=== PATIENT | male | born 1940 | race Caucasian/White ===

== ENCOUNTER 2018-06-14 03:23 | Outpatient (RCR) | payer SELFPAY | END 2018-07-14 03:23 | LOC: CR 03:23 | PROVIDERS: PCP Internal Medicine; Visit Provider Family Medicine | DX: Z51.89 Encounter for other specified aftercare (principal) ==

== ENCOUNTER 2018-07-16 22:53 | Outpatient (RCR) | payer SELFPAY | END 2018-08-13 23:59 | disposition home or self-care (01) | LOC: CR 22:53 | PROVIDERS: PCP Internal Medicine; Visit Provider Family Medicine | DX: Z51.89 Encounter for other specified aftercare (principal) ==

== ENCOUNTER 2018-08-14 18:35 | Outpatient (RCR) | payer MEDICARE, SELFPAY | END 2018-09-13 23:59 | disposition home or self-care (01) | LOC: CR 18:35 | PROVIDERS: PCP Internal Medicine; Visit Provider Family Medicine | DX: Z51.89 Encounter for other specified aftercare (principal) ==

== ENCOUNTER 2018-08-16 15:05 | Outpatient (RCR) | payer SELFPAY | END 2018-09-13 23:59 | disposition home or self-care (01) | LOC: CR 15:05 | PROVIDERS: PCP Internal Medicine; Visit Provider Family Medicine | DX: Z51.89 Encounter for other specified aftercare (principal) ==

== ENCOUNTER 2018-08-28 09:25 | Outpatient (CLI) | payer MEDICARE, SELFPAY ==
[2018-08-28 11:11] LABS: Anion Gap 7.5 mmol/L (3-11); BUN 24 mg/dL (7-18); CO2 31.5 mmol/L (21.0-32.0); CREATININE 0.76 mg/dL (0.70-1.30); Calcium 8.7 mg/dL (8.5-10.1); Chloride 103 mmol/L (98-107); Cholesterol 184 mg/dL (50-200); Glucose 99 mg/dL (70-100); HDL Cholesterol 42 mg/dL (40-60); LDL CHOLESTEROL 113 mg/dL (<100); Potassium 4.6 mmol/L (3.5-5.1); Sodium 142 mmol/L (136-145); Triglyceride 164 mg/dL (30-150)
== END 2018-08-28 09:45 ==
PROVIDERS: PCP Internal Medicine; Visit Provider Internal Medicine
DX: I10 Essential (primary) hypertension (principal); I25.9 Chronic ischemic heart disease, unspecified
CPT/HCPCS: 36415; 80048; 80061; 83721

== ENCOUNTER 2018-09-14 04:26 | Outpatient (RCR) | payer SELFPAY | END 2018-10-13 23:59 | disposition home or self-care (01) | LOC: CR 04:26 | PROVIDERS: PCP Internal Medicine; Visit Provider Family Medicine | DX: Z51.89 Encounter for other specified aftercare (principal) ==

== ENCOUNTER 2018-10-14 03:50 | Outpatient (RCR) | payer SELFPAY | END 2018-11-13 23:59 | LOC: CR 03:50 | PROVIDERS: PCP Internal Medicine; Visit Provider Family Medicine | DX: Z51.89 Encounter for other specified aftercare (principal) ==

== ENCOUNTER 2018-11-15 18:10 | Outpatient (RCR) | payer SELFPAY | END 2018-12-14 23:59 | disposition home or self-care (01) | LOC: CR 18:10 | PROVIDERS: PCP Internal Medicine; Visit Provider Family Medicine | DX: Z51.89 Encounter for other specified aftercare (principal) ==

== ENCOUNTER 2018-12-15 03:27 | Outpatient (RCR) | payer SELFPAY ==
--- NOTE | 2019-01-15 11:58 | PR3E_ITS ---
78 year old male who participated in our 3 day a week cardiac rehab maintenance program for many years. Patient stopped coming to sessions 05/10/19 due to back issues and has not returned. We will discharge the patient from the program at this time and provide him assistance in the future should he be re-referred.
== END 2019-01-11 23:59 | disposition home or self-care (01) ==
LOC: CR 03:27
PROVIDERS: PCP Internal Medicine; Visit Provider Family Medicine
DX: Z51.89 Encounter for other specified aftercare (principal)

== ENCOUNTER 2019-08-29 08:40 | Emergency (ER) | payer MEDICARE, SELFPAY ==
[2019-08-29 08:45] VITALS: BP 165/81; PULSE 82; RESP 14; TEMP 37; O2SAT 96
--- NOTE | 2019-08-29 09:01 | ED.GENADUL_ITS ---
Discharge Plan Disposition Patient Disposition: HOME Condition: Improving Discharge Details Chief Complaint: Nausea/Vomit/Diar Clinical Impression: Diarrhea Primary Care Provider: Gaby Jay ED Provider: Jude Chang Home Meds and New Rx's Prescriptions: Continued metoprolol succinate 25 mg tablet extended release 24 hr 25 mg PO DAILY Qty: 90 RF: 3 PreserVision AREDS-2 [id number] sb-zdys-zl-mg capsule 1 tab PO BID RF: 0 acetaminophen 325 MG tablet 325 mg PO PRN PRNRF: 0 aspirin [Aspirin Low-Strength] 81 MG tablet,chewable 81 mg PO DAILY RF: 0 Ocuvite with Lutein 1 EACH tablet 1 ea PO BID RF: 0 omega-3 fatty acids-fish oil 1 EACH capsule 1 cap PO DAILY RF: 0 olopatadine [Patanol] 5 ML drops 1 drp Ophthalmic BID RF: 0 saw palmetto fruit 450 MG capsule 450 mg PO DAILY RF: 0 fluticasone propionate [Flonase Allergy Relief] 9.9 ML spray,suspension 2 spry NS DAILY Qty: 1 RF: 12 methocarbamol 500 mg tablet 500 mg PO BID PRN Qty: 20 RF: 0 prednisolone acetate 5 ML drops,suspension 5 ml Ophthalmic DAILY RF: 0 Discharge Instructions Instructions: Acute Diarrhea (ED) Additional Instructions: Please bring a stool sample to the lab for testing of C. difficile May continue bland diet and once daily probiotic. We will ask our care management team to arrange a follow-up for you with Dr. Jay to review results of your stool testing. Return if you develop black or bloody stool, fever, abdominal pain, or any other acute concerns Medical Decision Making 78-year-old male presents from home with his partner. He had a post root canal dental infection and was treated with clindamycin 2 weeks ago. This resulted in diarrhea that is been waxing and waning, responding to food choices as well as probiotics. Is not had a fever, nor black or bloody stool. He is afebrile and otherwise well-appearing. His exam is reassuring. Differential diagnosis includes C. difficile colitis, dehydration, electrolyte abnormalities. Patient's white blood cell count 7, hematocrit 44 complete was 190. Sodium 142, potassium 4.0, chloride 105, bicarb 28. BUN 19, creatinine 0.7. C. difficile screen pending. After 500 cc of fluids, patient felt improved. No active pain, stool production, fever. He very well may have developed a C. difficile colitis, but I feel that it is mild and merits waiting for appropriate laboratory testing. Have ordered outpatient lab for him, he will follow-up with Dr. Jay in clinic. He will continue a bland diet and probiotics. HPI General Mode of arrival: ambulatory . Date/Time Provider Initiated Documentation: 08/29/19 08:40 . Limitations to Documentation: no limitations . Information obtained by: patient . History of Present Illness 78 year old M presents to the emergency department with the chief complaint of Diarrhea intermittently for approximately 2 weeks, described as mild, and is localized to the abdomen. Patient reports no radiation. Patient started experiencing this week(s) and it has been intermittent. No relieving factors improve symptom(s), Eating worsens symptoms . Patient notes other (No black or bloody stool); denies fever/chills. Patient did receive the following treatments prior to arrival, none Related Data Home Medications Medication Instructions Recorded Confirmed Ocuvite with Lutein 1 ea PO BID 02/15/13 08/29/19 acetaminophen 325 mg PO PRN PRN 02/15/13 08/29/19 aspirin [Aspirin Low-Strength] 81 mg PO DAILY tab 02/15/13 08/29/19 omega-3 fatty acids-fish oil 1 cap PO DAILY 02/16/13 08/29/19 olopatadine [Patanol] 1 drp OPHTHALMIC BID drp 08/15/13 08/29/19 saw palmetto fruit 450 mg PO DAILY 02/16/17 08/29/19 prednisolone acetate 5 ml OPHTHALMIC DAILY 02/24/17 08/29/19 fluticasone propionate [Flonase 2 spry NS DAILY #1 bay 12/02/17 08/29/19 Allergy Relief] vit C 250 mg-E 200 unit-zinc 40 1 tab PO BID 08/30/18 08/29/19 mg-copper 1 ct-vvitgu-vgykbv capsule metoprolol succinate 25 mg 25 mg PO DAILY #90 tab 02/28/19 08/29/19 tablet,extended release 24 hr methocarbamol 500 mg tablet 500 mg PO BID PRN #20 tab 06/01/19 08/29/19 Previous Rx's Medication Instructions Recorded fluticasone propionate [Flonase 2 spry NS DAILY #1 bay 12/02/17 Allergy Relief] metoprolol succinate 25 mg 25 mg PO DAILY #90 tab 02/28/19 tablet,extended release 24 hr methocarbamol 500 mg tablet 500 mg PO BID PRN #20 tab 06/01/19 Allergies Allergy/AdvReac Type Severity Reaction Status Date / Time doxycycline Allergy Unknown rash Verified 08/29/19 08:50 cyclobenzaprine AdvReac Intermediate difficulty Verified 08/29/19 08:50 urinating Vppkyfp-Upf-Yhg Reductase AdvReac Unknown muscle Verified 08/29/19 08:50 Inhibitor weakness General Stated Complaint: Nausea/Vomit/Diar TATA: 3 Review of Systems Review of Systems Narrative: 6 systems reviewed and otherwise negative. No travel, no suspicious food contacts. No abdominal pain. [facility] Surgical History cataract surgery OD (04/25/17) Coronary Artery Bypass Gaft (CABG) (08/15/15) Family History Father , aneurysm at age 57. Essential hypertension Mother No problems noted. Sister No problems noted. Brother No problems noted. 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 Pleasant, well groomed, interactive. HEAD: Normocephalic, atraumatic ENT: Mucous membranes moist, oropharynx unremarkable, External ear exam unremarkable EYES: PERRL, EOMI NECK: Full ROM, no ANSHU, no menigismus CHEST/RESP: Nontender, clear to auscultation bilateral, no wheeze/rhonchi/rales CARDIOVASCULAR: RRR, no murmur, rub marleen. 2+ Rad pulse bilateral ABDOMEN: Soft, nontender, no mass. +Bowel sounds EXT: Full ROM, no edema, no rash Neuro: Grossly normal neurologic exam, conversant, interactive. Psych: Speech fluent, thoughts congruent, affect normal Course Vital Signs Vital signs: Vital Signs Temperature 37.0 C 08/29/19 08:45 Pulse 82 08/29/19 08:45 Respiratory Rate 14 08/29/19 08:45 Blood Pressure 165/81 H 08/29/19 08:45 Pulse Oximetry 96 08/29/19 08:45 Temperature 37.0 C 08/29/19 08:45 Temperature Source Temporal Artery Scan 08/29/19 08:45 Pulse 82 08/29/19 08:45 Respiratory Rate 14 08/29/19 08:45 Respiratory Effort Non-Labored 08/29/19 08:52 Blood Pressure 165/81 H 08/29/19 08:45 Blood Pressure Position Sitting 08/29/19 08:45 Pulse Oximetry 96 08/29/19 08:45 Oxygen Delivery Method Room Air 08/29/19 08:45 Oxygen Flow Rate 0 08/29/19 08:45 Pain Level 0 08/29/19 08:45
[2019-08-29] MEDS: Normal Saline Flush 10 ML SYR IVP (09:19)
[2019-08-29] MEDS: Normal Saline 250 ML 500 ML IV (09:19)
[2019-08-29] MEDS: Normal Saline 1,000 ML 150 ML IV (09:20)
[2019-08-29 09:24] LABS: Abs Immature Grans 0.02 k/cumm (0.0-0.09); Absolute Basophil Count 0.03 k/cumm (0.0-0.2); Absolute Eosinophil Count 0.11 k/cumm (0.0-0.7); Absolute Lymphocyte Count 1.78 k/cumm (1.2-3.4); Absolute Neutrophil Count 4.83 k/cumm (1.2-6.7); Basophils % 0.4; Eosinophils % 1.5; HCT 44.3 % (40.0-50.0); HGB 14.9 g/dL (13.5-17.5); Immature Grans % 0.3; Lymphocytes % 24.2; Mean Corp. HGB Concentration 33.6 g/dL (32.0-36.0); Mean Corpuscular Hemoglobin 31.5 pg (27.0-33.0); Mean Corpuscular Volume 93.7 fL (80-95); Monocytes % 8.1; Neutrophils % 65.5; Platelet Count 190 x1000/uL (130-400); RBC 4.73 m/cumm (4.50-6.00); RBC Distribution Width 12.9 % (11.8-14.1); White Blood Cell Count 7.37 k/cumm (4.4-10.8)
[2019-08-29 09:38] LABS: ALT 22 U/L (16-63); AST 22 U/L (15-37); Albumin 3.6 g/dL (3.4-5.0); Alkaline Phosphatase 67 U/L (46-116); Anion Gap 8.5 mmol/L (3-11); BUN 19 mg/dL (7-18); Bilirubin, Total 0.7 mg/dL (0.2-1.0); CO2 28.5 mmol/L (21.0-32.0); CREATININE 0.74 mg/dL (0.70-1.30); Chloride 105 mmol/L (98-107); Glucose 103 mg/dL (70-100); Sodium 142 mmol/L (136-145); Total Protein 7.3 g/dL (6.4-8.2)
[2019-08-29 10:52] LABS: Calculated LDL 129 mg/dL; Cholesterol 195 mg/dL (50-200); HDL Cholesterol 40 mg/dL (40-60); Triglyceride 130 mg/dL (30-150)
== END 2019-08-29 10:35 | disposition home or self-care (01) ==
PROVIDERS: Emergency Provider Emergency Medicine; PCP Internal Medicine
DX: R19.7 Diarrhea, unspecified; T36.8X5A Adverse effect of other systemic antibiotics, initial encounter; I10 Essential (primary) hypertension
CPT/HCPCS: 36415; 80048; 80053; 80061; 96360; 99283; 85025; 87324

== ENCOUNTER 2019-08-30 12:24 | Outpatient (REF) | payer MEDICARE, SELFPAY | END 2019-08-30 12:44 | LOC: LBN 12:24 | PROVIDERS: PCP Internal Medicine; Visit Provider Emergency Medicine | DX: R19.7 Diarrhea, unspecified (principal); R11.2 Nausea with vomiting, unspecified | CPT/HCPCS: 87324 ==

== ENCOUNTER 2020-04-28 02:04 | Outpatient (CLI) | payer MEDICARE, SELFPAY ==
[2020-04-28 10:05] LABS: Glucose 102 mg/dL (74-106)
== END 2020-04-28 02:24 ==
PROVIDERS: PCP Internal Medicine; Visit Provider Internal Medicine
DX: R73.01 Impaired fasting glucose (principal)
CPT/HCPCS: 36415; 82947

== ENCOUNTER 2020-08-27 02:19 | Outpatient (CLI) | payer MEDICARE, SELFPAY ==
[2020-08-27 11:32] LABS: BUN 21 mg/dL (7-18); CREATININE 0.81 mg/dL (0.70-1.30); Calcium 9.1 mg/dL (8.5-10.1); Calculated LDL 135 mg/dL (<100); Chloride 101 mmol/L (98-107); Cholesterol 208 mg/dL (<200); Glucose 100 mg/dL (74-106); HDL Cholesterol 37 mg/dL (40-60); Potassium 4.7 mmol/L (3.5-5.1); Sodium 141 mmol/L (136-145); Triglyceride 181 mg/dL (<150)
== END 2020-08-27 02:39 ==
PROVIDERS: PCP Internal Medicine; Visit Provider Internal Medicine
DX: E78.5 Hyperlipidemia, unspecified (principal); I10 Essential (primary) hypertension; R73.01 Impaired fasting glucose
CPT/HCPCS: 36415; 80048; 80061

== ENCOUNTER 2020-09-29 02:07 | Outpatient (CLI) | payer MEDICARE, SELFPAY ==
[2020-09-29 11:12] LABS: Calculated LDL 109 mg/dL (<100); Cholesterol 176 mg/dL (<200); HDL Cholesterol 37 mg/dL (40-60); Triglyceride 154 mg/dL (<150)
== END 2020-09-29 02:27 ==
PROVIDERS: PCP Internal Medicine; Visit Provider Internal Medicine
DX: E78.00 Pure hypercholesterolemia, unspecified (principal)
CPT/HCPCS: 36415; 80061

== ENCOUNTER 2021-03-26 02:10 | Outpatient (CLI) | payer MEDICARE, SELFPAY ==
[2021-03-26 12:06] LABS: Anion Gap 7.2 mmol/L (3-11); BUN 23 mg/dL (7-18); CO2 31.8 mmol/L (21.0-32.0); CREATININE 0.8 mg/dL (0.70-1.30); Calcium 8.9 mg/dL (8.5-10.1); Calculated LDL 146 mg/dL (<100); Chloride 104 mmol/L (98-107); Cholesterol 220 mg/dL (<200); Glucose 93 mg/dL (74-106); HDL Cholesterol 42 mg/dL (40-60); Potassium 4.5 mmol/L (3.5-5.1); Sodium 143 mmol/L (136-145); Triglyceride 162 mg/dL (<150)
== END 2021-03-26 02:11 | disposition home or self-care (01) ==
PROVIDERS: PCP Internal Medicine; Visit Provider Internal Medicine
DX: I10 Essential (primary) hypertension (principal); E78.00 Pure hypercholesterolemia, unspecified
CPT/HCPCS: 36415; 80048; 80061

== ENCOUNTER 2022-03-25 02:04 | Outpatient (CLI) | payer MEDICARE, SELFPAY ==
[2022-03-25 11:30] LABS: Anion Gap 8.1 mmol/L (3-11); BUN 24 mg/dL (7-18); CO2 30.9 mmol/L (21.0-32.0); CREATININE 0.9 mg/dL (0.70-1.30); Chloride 104 mmol/L (98-107); Glucose 96 mg/dL (74-106); Potassium 4.6 mmol/L (3.5-5.1); Sodium 143 mmol/L (136-145)
== END 2022-03-25 02:05 | disposition home or self-care (01) ==
LOC: LBO 02:04
PROVIDERS: PCP Internal Medicine; Visit Provider Internal Medicine
DX: I10 Essential (primary) hypertension (principal)
CPT/HCPCS: 36415; 80048

== ENCOUNTER 2022-07-23 14:29 | Emergency (ER) | payer MEDICARE, SELFPAY ==
--- NOTE | 2022-07-23 14:30 | RT.EKG_ITS ---
APPROVED REPORT Exam: Resting ECG Reason for Exam: light headed Patient Location: E HR:72 bpm ECG Measurements Heart Rate 72 AXIS MA 271 P 59 QRSd 101 QRS -24 QT 381 T 59 QTc 418 Conclusion Sinus rhythm. Prolonged MA interval...MA >220, V-rate 50- 90 Probable left atrial enlargement
[2022-07-23 14:33] VITALS: BP 185/85; PULSE 78; RESP 18; TEMP 36.6; O2SAT 100
--- NOTE | 2022-07-23 15:22 | W.ED.GENAD ---
Discharge Plan Disposition Patient Disposition: HOME Condition: Stable Discharge Details Clinical Impression: Diaphoresis Primary Care Provider: Jaqui Baez ED Provider: Keegan Henry Home Meds and New Rx's Prescriptions: Continued cholecalciferol (vitamin D3) 125 mcg (5,000 unit) capsule 125 mcg PO DAILY PRN Rx Instructions: 07/2020 Chiropractor recommended for the winter. mk Pataday Once Daily Relief 0.7 % drops 1 drp ophthalmic (eye) DAILY calcium carbonate [Tums Ultra] 400 mg calcium (1,000 mg) tablet,chewable 400 mg PO DAILY PRN polyethylene glycol 3350 [Miralax] 17 gram/dose powder 17 g PO .qMWF or PRN PreserVision AREDS-2 [id number] kg-ohqu-ct-mg capsule 1 tab PO BID Xlear NS glucosamine-chondroitin 900 mg tablet PO omega-3 fatty acids-fish oil 300-1,000 mg capsule 3 cap PO DAILY acetaminophen 325 MG tablet 325 mg PO PRN PRN aspirin [Aspirin Low-Strength] 81 MG tablet,chewable 81 mg PO DAILY saw palmetto 450 MG capsule 450 mg PO DAILY Rx Instructions: 2 in AM, 1 in PM fluticasone propionate 50 mcg/actuation spray,suspension 2 spray intranasal DAILY Rx Instructions: administer into each nostril, note dated 04/23/21 cgc metoprolol succinate 25 mg tablet extended release 24 hr 25 mg PO DAILY Qty: 90 3RF methocarbamol 500 mg tablet 500 mg PO BID PRN Qty: 20 0RF Rx Instructions: 1 BID prn back pain. Not to exceed 20 tabs in 30 days. prednisolone acetate 5 ML drops,suspension 5 ml Ophthalmic DAILY Discharge Instructions Additional Instructions: your ekg and blood work as well as your exam today did not show concerning findings today I suspect your blood pressure was low when you stood up causing your episode earlier. Trying to go slow in the morning when going from laying down or sitting to standing can help prevent this from happening follow up with your primary care provider in 1-2 weeks if you feel more ill, have difficulty breathing, severe weakness or chest pain return to the emergency department Medical Decision Making 81 yo male wth hx of gerd, htn, cabg, who comes in after this morning he stood up, got diaphoretic and felt lightheaded. Denies loc and states yesterday felt well without symptoms. This episode today resolved in a few minutes and he feels fine now. Denies ever having chest pain, dyspnea. He denies unilateral weakness, vision changes, slurred speech. He arrives stable with normal gait. He is caox4 without focal deficits, cn ii-xii intact, nih of 0. Soft nontender abdomen, clear lungs, no leg swelling or calf tenderness. Unclear etiology of his diaphoresis earlier though it occurred while standing up so could be orthostasis. He had no chest pain but given his cabg history will obtain troponin, and also check for anemia and electrolyte abnormalities. Given no headache, no symptoms to suggest tia and normal neuro exam doubt cva and do not feel ct head indicated. No evidence of dvt and no hypoxia or tachycardia so doubt pe and no tearing back pain and normal peripheral pulses so doubt dissection pt stable and still asymptomatic, labs unremarkable. Discussed with him, given this occurred well over 3 hours ago do not feel repeat troponin indicated. Suspect orthostatic hypotension earlier causing his episode of diaphoresis. Advised to f/u with his pcp and return precautions given Differential Diagnosis Differential Diagnosis: anemia, nstemi, electrolyte abnormality, orthostasis Medical Records Medical records reviewed: Yes I reviewed the patient's medical records. Lab Data Lab results reviewed: Yes I reviewed the patient's lab results. ECG Data Attestation: I personally reviewed and interpreted this ECG (s) as follows: Prior ECG tracings: not available for review Interpretation: sinus rhythm, rate of 72, no acute st t wave ischemic findings HPI General Mode of arrival: ambulatory. Date/Time Provider Initiated Documentation: 07/23/22 14:38. Limitations to Documentation: no limitations. Information obtained by: patient. History of Present Illness 81 year old M presents to the emergency department with the chief complaint of diaphoresis, Patient started experiencing this hour(s) (7) and it has been now resolved. No relieving factors improve symptom(s), No exacerbating factors reported . Patient did receive the following treatments prior to arrival, none Related Data Home Medications Medication Instructions Recorded Confirmed acetaminophen 325 mg tablet 325 mg PO PRN PRN 02/15/13 07/21/22 aspirin 81 mg chewable tablet 81 mg PO DAILY 02/15/13 07/21/22 (Aspirin Low-Strength) saw palmetto 450 mg capsule 450 mg PO DAILY 02/16/17 07/21/22 prednisolone acetate 1 % eye 5 ml ophthalmic (eye) DAILY 02/24/17 07/21/22 drops,suspension vit C 250 mg-vit E 90 mg-zinc 40 1 tab PO BID 08/30/18 07/21/22 mg-copper 1 xn-qthfqh-iydiax capsule (PreserVision AREDS-2) Xlear NS 09/05/19 07/21/22 antiarthritic combination no.2 900 mg PO 09/05/19 07/21/22 mg tablet (glucosamine-chondroitin) omega-3 fatty acids-fish oil 300 3 cap PO DAILY 09/05/19 07/21/22 mg-1,000 mg capsule cholecalciferol (vitamin D3) 125 125 mcg PO DAILY PRN 09/02/20 07/21/22 mcg (5,000 unit) capsule fluticasone propionate 50 2 spray intranasal DAILY 04/24/21 07/21/22 mcg/actuation nasal spray,suspension olopatadine 0.7 % eye drops 1 drp ophthalmic (eye) DAILY 09/30/21 07/21/22 (Pataday Once Daily Relief) calcium carbonate 400 mg calcium 400 mg PO DAILY PRN 10/14/21 07/21/22 (1,000 mg) chewable tablet (NantWorkss Ultra) metoprolol succinate 25 mg 25 mg PO DAILY #90 tabs 03/09/22 07/21/22 tablet,extended release 24 hr methocarbamol 500 mg tablet 500 mg PO BID PRN back pain #20 04/22/22 07/21/22 tabs polyethylene glycol 3350 17 17 g PO .qMWF or PRN 07/21/22 07/21/22 gram/dose oral powder (Miralax) Previous Rx's Medication Instructions Recorded metoprolol succinate 25 mg 25 mg PO DAILY #90 tabs 03/09/22 tablet,extended release 24 hr methocarbamol 500 mg tablet 500 mg PO BID PRN back pain #20 04/22/22 tabs Allergies Allergy/AdvReac Type Severity Reaction Status Date / Time doxycycline Allergy Unknown rash Verified 07/23/22 14:38 clindamycin AdvReac Severe Diarrhea Verified 07/23/22 14:38 cyclobenzaprine AdvReac Intermediate difficulty Verified 07/23/22 14:38 urinating montelukast [From Singulair] AdvReac Intermediate terrible Verified 07/23/22 14:38 nightmares per pt. Ixfysqk-UUN-VoW Reductase AdvReac Unknown muscle Verified 07/23/22 14:38 Inhibitor weakness [Xsigrps-Ckb-Fci Reductase Inhibitor] General Stated Complaint: GenMedical TATA: 3 Review of Systems All systems reviewed & are unremarkable except as noted in HPI and below Constitutional Constitutional: Denies chills, Denies fever(s) and Denies weakness Eyes Eyes: Denies loss of vision Cardiovascular Cardiovascular: Denies chest pain and Denies dyspnea Respiratory Respiratory: Denies cough and Denies dyspnea Gastrointestinal Gastrointestinal: Denies abdominal pain, Denies nausea and Denies vomiting Genitourinary Genitourinary: Denies dysuria Musculoskeletal Musculoskeletal: Denies joint swelling Integumentary/Breasts Skin/Breast: Denies rash Neurologic Neurologic: Denies loss of vision and Denies weakness PFSH All Active Problems (Updated 07/23/22 @ 16:36 by Keegan Henry MD) Diaphoresis (Acute) Submandibular sialoadenitis (Acute) SNHL (sensorineural hearing loss) (Acute) Sensorineural hearing loss, bilateral (Acute) Bilateral hearing loss due to cerumen impaction (Acute) Impaired fasting glucose (Acute) Bilateral knee pain (Acute) Sensorineural hearing loss of combined sites, bilateral (Acute 10/21/15) Sciatica (Acute 10/27/12) LEFT: RECURRENT Other and unspecified hyperlipidemia (Acute 02/21/13) intolerant statins Low back pain (Acute 02/21/13) Gastroesophageal reflux disease with esophagitis (Acute 12/21/11) Essential hypertension (Acute 08/08/13) Erectile dysfunction (Acute 12/21/11) Chronic rhinitis (Acute 02/21/13) Chronic prostatitis (Acute 12/21/11) 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; 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 Benign prostate hyperplasia (Acute 06/06/14) 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/11) 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 Medical History Asymmetrical sensorineural hearing loss of both ears (08/21/15) Chronic serous otitis media, right ear Conductive hearing loss in right ear Conductive hearing loss, external ear Eustachian tube dysfunction right 05/28/21 resolved ENT-[facility] History of SCC (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 Essential hypertension Mother No problems noted. Sister No problems noted. Brother No problems noted. Social History Smoking/Tobacco Use Status: Former Tobacco Use Smoking risk assessment performed?: Yes Alcohol Intake: never Drug use: Never Substance use type: does not use Caregiver/Support person: No Housing: house Number of Children: 3 Communication Needs: Hard of Hearing and Corrective Lenses current occupation: retired Current gender identity: male What is your relationship status?: How often do you talk on the phone with friends or family?: three or more times per week How often do you get together with friends or relatives?: three or more times per week Panel score (0-1 are the most socially isolated patients): 1 What type of physical activity do you participate in: walking and other Details: stretching exercises q am x 1 hour Duration: 30-45 minutes/day Frequency: daily Seatbelt use: always 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 Working smoke detector in home: Yes Carbon monox detector in home: Yes Do you feel safe at home: Yes Do you feel safe in your relationship?: Yes Exam Const General: no acute distress Orientation: alert HENMT Head: normal to inspection Ears: external ears normal General nose exam: external nose normal Mouth: moist mucous membranes Eyes General: appearance normal, both eyes and all related structures Neck Neck: normal visual inspection Resp Effort & Inspection: normal respiratory effort and able to speak in complete sentences Cardio Rate: regular rate GI Palpation: soft and nontender Skin General skin exam: no rashes or lesions noted Neuro General: patient alert and patient oriented x3 Extrem General: normal to inspection Psych Mental Status: mental status grossly normal Course Vital Signs Vital signs: Vital Signs Temperature 36.6 C 07/23/22 14:33 Pulse 78 07/23/22 14:33 Respiratory Rate 18 07/23/22 14:33 Blood Pressure 185/85 H 07/23/22 14:33 Pulse Oximetry 100 07/23/22 14:33 Temperature 36.6 C 07/23/22 14:33 Temperature Source Temporal Artery Scan 07/23/22 14:33 Pulse 78 07/23/22 14:33 Respiratory Rate 18 07/23/22 14:33 Respiratory Effort Non-Labored 07/23/22 14:38 Blood Pressure 185/85 H 07/23/22 14:33 Blood Pressure Position Sitting 07/23/22 14:33 Pulse Oximetry 100 07/23/22 14:33 Oxygen Delivery Method Room Air 07/23/22 14:33 Oxygen Flow Rate 0 07/23/22 14:33
[2022-07-23 15:39] VITALS: RESP 18
[2022-07-23 16:07] LABS: Abs Immature Grans 0.02 10^3/uL (0.0-0.06); Absolute Basophil Count 0.04 10^3/uL (0.0-0.2); Absolute Eosinophil Count 0.07 10^3/uL (0.0-0.7); Absolute Lymphocyte Count 1.58 10^3/uL (1.2-3.4); Absolute Monocyte Count 0.69 10^3/uL (0.1-0.8); Absolute Neutrophil Count 5.21 10^3/uL (1.2-6.7); Basophils % 0.5; Eosinophils % 0.9; HCT 41.4 % (40.0-50.0); HGB 13.9 g/dL (13.5-17.5); Immature Grans % 0.3; Lymphocytes % 20.8; MCH 30.8 pg (27.0-33.0); MCHC 33.6 % (32.0-36.0); MCV 92 fL (80-95); MPV 9.2 fL (8.0-11.0); Monocytes % 9.1; Neutrophils % 68.4; Platelet Count 222 10^3/uL (130-400); RBC 4.51 10^6/uL (4.36-5.78); RDW 12.8 % (11.8-14.1); RDW-SD 43.2 fL; WBC 7.61 10^3/uL (4.4-10.8)
[2022-07-23 16:19] LABS: ALT 19 U/L (16-63); AST 21 U/L (15-37); Albumin 3.5 g/dL (3.4-5.0); Alkaline Phosphatase 83 U/L (46-116); Anion Gap 5.9 mmol/L (3-11); BUN 23 mg/dL (7-18); Bilirubin, Total 0.5 mg/dL (0.2-1.0); CO2 31.1 mmol/L (21.0-32.0); CREATININE 0.8 mg/dL (0.70-1.30); Calcium 8.8 mg/dL (8.5-10.1); Chloride 100 mmol/L (98-107); Estimated GFR 87.81 (mL/min/1.73m2); Glucose 100 mg/dL (74-106); Magnesium 2.1 mg/dL (1.8-2.4); Potassium 4.4 mmol/L (3.5-5.1); Sodium 137 mmol/L (136-145); Total Protein 7.4 g/dL (6.4-8.2); Troponin I < 50 ng/L (<or=60)
== END 2022-07-23 16:46 | disposition home or self-care (01) ==
PROVIDERS: Emergency Provider Emergency Medicine; PCP Nurse Practitioner Adult Health
DX: R61 Generalized hyperhidrosis (principal); Z87.891 Personal history of nicotine dependence; I10 Essential (primary) hypertension; Z95.1 Presence of aortocoronary bypass graft; R42 Dizziness and giddiness
CPT/HCPCS: 36415; 80053; 93005; 99283; 83735; 84484; 85025; 93010; 99282

== ENCOUNTER 2022-11-22 14:26 | Outpatient (CLI) | payer MEDICARE, SELFPAY ==
--- NOTE | 2022-11-22 14:15 | RT.EKG_ITS ---
APPROVED REPORT Exam: Resting ECG Reason for Exam: Arrhythmia Patient Location: O HR:76 bpm ECG Measurements Heart Rate 76 AXIS NM 247 P 48 QRSd 105 QRS -19 QT 390 T 54 QTc 439 Conclusion Sinus rhythm...normal P axis, V-rate 50- 99 Prolonged NM interval...NM >220, V-rate 50- 90
== END 2022-11-22 14:27 | disposition home or self-care (01) ==
LOC: DI.KIM 14:28
PROVIDERS: PCP Nurse Practitioner Adult Health; Visit Provider Family Medicine
DX: I49.9 Cardiac arrhythmia, unspecified (principal)
CPT/HCPCS: 93010

== ENCOUNTER 2023-08-11 15:44 | Outpatient (CLI) | payer MEDICARE, SELFPAY ==
--- NOTE | 2023-08-11 15:30 | RT.EKG_ITS ---
APPROVED REPORT Exam: Resting ECG Reason for Exam: Dizziness Patient Location: O HR:64 bpm ECG Measurements Heart Rate 64 AXIS AK 296 P 68 QRSd 101 QRS -25 QT 403 T 44 QTc 416 Conclusion Sinus rhythm...normal P axis, V-rate 50- 99 Prolonged AK interval...AK >220, V-rate 50- 90 Borderline left axis deviation...QRS axis (-15,-29)
== END 2023-08-11 15:45 | disposition home or self-care (01) ==
LOC: DI.KIM 15:45
PROVIDERS: PCP Nurse Practitioner Adult Health; Visit Provider Family Medicine
DX: R42 Dizziness and giddiness (principal)
CPT/HCPCS: 93010

== ENCOUNTER 2023-08-11 18:43 | Outpatient (REF) | payer MEDICARE, SELFPAY ==
[2023-08-11 19:18] LABS: COVID-19 PCR Negative (Negative); Influenza A PCR Negative (Negative); Influenza B PCR Negative (Negative); RSV PCR Negative (Negative)
[2023-08-11 19:20] LABS: Source NASOPHARYNX
== END 2023-08-11 18:44 | disposition home or self-care (01) ==
LOC: LBN 18:43
PROVIDERS: PCP Nurse Practitioner Adult Health; Visit Provider Family Medicine
DX: R42 Dizziness and giddiness (principal); R09.81 Nasal congestion; Z11.59 Encounter for screening for other viral diseases
CPT/HCPCS: 87637

== ENCOUNTER 2023-10-13 01:50 | Outpatient (CLI) | payer MEDICARE, SELFPAY ==
[2023-10-13 14:48] LABS: ALT 25 U/L (16-63); AST 23 U/L (15-37); Albumin 3.5 g/dL (3.4-5.0); Alkaline Phosphatase 87 U/L (46-116); Anion Gap 6.2 mmol/L (3-11); BUN 27 mg/dL (7-18); Bilirubin, Total 0.5 mg/dL (0.2-1.0); CO2 31.8 mmol/L (21.0-32.0); CREATININE 0.9 mg/dL (0.70-1.30); Calcium 9.4 mg/dL (8.5-10.1); Chloride 104 mmol/L (98-107); Estimated GFR 84.22 (mL/min/1.73m2); Glucose 99 mg/dL (74-106); Potassium 4.8 mmol/L (3.5-5.1); Sodium 142 mmol/L (136-145); Total Protein 7.5 g/dL (6.4-8.2)
[2023-10-13 15:23] LABS: Hemoglobin A1C 5.3 % (<5.7)
== END 2023-10-13 01:51 | disposition home or self-care (01) ==
LOC: LBO 01:50
PROVIDERS: PCP Nurse Practitioner Adult Health; Visit Provider Nurse Practitioner Adult Health
DX: R73.01 Impaired fasting glucose (principal); E78.5 Hyperlipidemia, unspecified; I10 Essential (primary) hypertension
CPT/HCPCS: 36415; 80053; 83036

== ENCOUNTER 2024-07-25 08:24 | Inpatient (IN) | payer MEDICARE, SELFPAY ==
[2024-07-25] VITALS (79 sets, daily range): BP systolic 112–171; BP diastolic 60–103; PULSE 42–148; RESP 10–37; TEMP 36.6; O2SAT 94–100
--- NOTE | 2024-07-25 08:15 | RT.EKG_ITS ---
APPROVED REPORT Exam: Resting ECG Reason for Exam: Chest Pain Patient Location: E HR:73 bpm ECG Measurements Heart Rate 73 AXIS [place] 353 P 52 QRSd 106 QRS -40 QT 399 T 58 QTc 440 Conclusion Sinus arrhythmia...V-rate 64- 81, variation>10% Prolonged [place] interval...[place] >220, V-rate 50- 90 Left axis deviation...QRS axis (-30,-90) Anteroseptal infarct, age indeterminate...Q >35mS, T neg, V1-V2
[2024-07-25] MEDS: Aspirin 81 MG CHEW 243 MG CH (08:58)
[2024-07-25 08:59] LABS: Abs Immature Grans 0.03 10^3/uL (0.0-0.06); Absolute Basophil Count 0.06 10^3/uL (0.0-0.2); Absolute Eosinophil Count 0.18 10^3/uL (0.0-0.7); Absolute Monocyte Count 0.81 10^3/uL (0.1-0.8); Absolute Neutrophil Count 4.91 10^3/uL (1.2-6.7); Basophils % 0.7 %; Eosinophils % 2.1 %; HCT 43.7 % (40.0-50.0); HGB 14.1 g/dL (13.5-17.5); Immature Grans % 0.4 %; Lymphocytes % 28.6 %; MCH 30.5 pg (27.0-33.0); MCHC 32.3 % (32.0-36.0); MCV 94 fL (80-95); MPV 9.2 fL (8.0-11.0); Monocytes % 9.7 %; Neutrophils % 58.5 %; Platelet Count 206 10^3/uL (130-400); RBC 4.63 10^6/uL (4.36-5.78); RDW 13.1 % (11.8-14.1); RDW-SD 45.3 fL; WBC 8.39 10^3/uL (4.4-10.8)
--- NOTE | 2024-07-25 09:13 | ED.GENADUL_ITS ---
Discharge Plan Disposition Patient Disposition: Admit to [facility] Condition: Stable Discharge Details Chief Complaint: Chest Pain Clinical Impression: Non-ST elevation AK (NSTEMI), Aneurysm of infrarenal abdominal aorta Primary Care Provider: Jaqui Baez ED Provider: Lalit Fonseca Home Meds and New Rx's Prescriptions: No Action cholecalciferol (vitamin D3) 125 mcg (5,000 unit) capsule 125 mcg PO DAILY PRN Rx Instructions: 07/2020 Chiropractor recommended for the winter. mk calcium carbonate [Tums Ultra] 400 mg calcium (1,000 mg) tablet,chewable 400 mg PO DAILY PRN polyethylene glycol 3350 [Miralax] 17 gram/dose powder 17 g PO .qMWF or PRN olopatadine [Pataday Once Daily Relief] 0.2 % drops 1 drp ophthalmic (eye) DAILY Rx Instructions: each eye tamsulosin [Flomax] 0.4 mg capsule 0.4 mg PO QHS Qty: 90 1RF Rx Instructions: Trial for BPH (vs SawPalmetto), start after 1 week w/o SP qHS glucosamine-chondroitin 900 mg tablet 900 mg PO DAILY omega-3 fatty acids-fish oil 300-1,000 mg capsule 3 cap PO DAILY methocarbamol 500 mg tablet 500 mg PO BID PRN Qty: 20 0RF Rx Instructions: 1 BID prn back pain. Not to exceed 20 tabs in 30 days. acetaminophen 325 MG tablet 325 mg PO PRN PRN aspirin [Aspirin Low-Strength] 81 MG tablet,chewable 81 mg PO DAILY metoprolol succinate 25 mg tablet extended release 24 hr 25 mg PO DAILY Qty: 90 3RF saw palmetto 450 mg capsule 450 mg PO DAILY Rx Instructions: 2 in AM HPI General Date/Time Provider Initiated Documentation: 07/25/24 08:29 . HPI Narrative: 83 year-old male presents to ED today by POV/ambulating with his son with a chief complaint of chest pain- vague onset over days, questionably exertional with 3/10 pain after walking his dog last night, had tachycardia before bed that self-resolved- days prior had been complaining of mid-thoracic back pain, adjusted by chiropractor without relief, now having some anterior L chest / shoulder / arm pain. Quality described as heaviness, like someone standing on his chest, with some shortness of breath, no radiation to diaphoresis, syncope, endorses some dizziness, denies fever, denies cough, denies hemoptysis. Severity is described as 10 currently. Palliating factors include took his normal baby aspirin this morning. Provoking factors include nothing specific. Events leading up to the incident/Associated Symptoms: Patient endorses history of CABG x3 in 2008 at [facility]. Patient not anticoagulated. Related Data Home Medications ?Medication ?Instructions ?Recorded ?Confirmed acetaminophen 325 mg tablet 325 mg PO PRN PRN 02/15/13 07/25/24 aspirin 81 mg chewable tablet 81 mg PO DAILY 02/15/13 07/25/24 (Aspirin Low-Strength) antiarthritic combination no.2 900 900 mg PO DAILY 09/05/19 07/25/24 mg tablet (glucosamine-chondroitin) omega-3 fatty acids-fish oil 300 3 cap PO DAILY 09/05/19 07/25/24 mg-1,000 mg capsule cholecalciferol (vitamin D3) 125 125 mcg PO DAILY PRN 09/02/20 07/25/24 mcg (5,000 unit) capsule calcium carbonate (Tums Ultra) 400 mg PO DAILY PRN 10/14/21 07/25/24 polyethylene glycol 3350 17 17 g PO .qMWF or PRN 07/21/22 07/25/24 gram/dose oral powder (Miralax) methocarbamol 500 mg tablet 500 mg PO BID PRN back pain #20 09/29/22 07/25/24 tabs olopatadine 0.2 % eye drops 1 drp ophthalmic (eye) DAILY 08/11/23 07/25/24 (Pataday Once Daily Relief) metoprolol succinate 25 mg 25 mg PO DAILY #90 tabs 01/18/24 07/25/24 tablet,extended release 24 hr tamsulosin 0.4 mg capsule (Flomax) 0.4 mg PO QHS #90 caps 05/24/24 07/25/24 saw palmetto 450 mg capsule 450 mg PO DAILY 06/21/24 07/25/24 Previous Rx's ?Medication ?Instructions ?Recorded methocarbamol 500 mg tablet 500 mg PO BID PRN back pain #20 09/29/22 tabs metoprolol succinate 25 mg 25 mg PO DAILY #90 tabs 03/06/24 tablet,extended release 24 hr tamsulosin 0.4 mg capsule (Flomax) 0.4 mg PO QHS #90 caps 05/24/24 Allergies Allergy/AdvReac Type Severity Reaction Status Date / Time doxycycline Allergy Unknown rash Verified 07/12/24 13:36 clindamycin AdvReac Severe Diarrhea Verified 07/12/24 13:36 cyclobenzaprine AdvReac Intermediate difficulty Verified 07/12/24 13:36 urinating montelukast (From Singulair) AdvReac Intermediate terrible Verified 07/12/24 13:36 nightmares per pt. ezetimibe AdvReac Mild unknown Verified 07/12/24 13:36 Cshduon-RVB-OrS Reductase AdvReac Unknown muscle Verified 07/12/24 13:36 Inhibitor (Vnmgcrn-Mwl-Pvn weakness Reductase Inhibitor) General Stated Complaint: Chest Pain TATA: 2 Review of Systems All systems reviewed & are unremarkable except as noted in HPI and below Exam Narrative Exam Narrative: GENERAL APPEARANCE: Well-nourished, non-toxic, awake and alert, atraumatic, no acute distress. SKIN: Warm, pink, dry, intact, without rashes/lesions/ulcerations. HEAD: Normocephalic, atraumatic, normal hair distribution for gender/age. EYES: Normal conjunctiva, no exudates on lids/lashes. ENT: Nares patent, no circumoral cyanosis, no facial swelling NECK: Supple, trachea midline, painless cervical ROM. LUNGS/CHEST: Lungs CTA bilaterally, non-labored respirations, normal A/P diameter, symmetrical expansion, no chest wall deformity HEART (CV/PV): Regular rate and rhythm without murmur, no peripheral edema, no JVD. ABDOMEN: Soft, non-distended, no guarding. MSK: Normal ROM, no swelling/deformity to bilateral UEs or LEs, moving all extremities without weakness, no cyanosis, spine midline without tenderness, normal curvature. NEURO: Mental Status AAOx4 - alert to person, place, time, events No facial droop, no forehead involvement. Motor: No focal weakness - strength 5/5 in bilateral UEs and LEs, proximal and distal, symmetric. Sensory: sensation intact to light touch globally. Gait normal: patient ambulated without ataxia into ED room. PSYCH: euthymic, cooperative, pleasant, appropriate speech Course Vital Signs Vital signs: Vital Signs Temperature 36.6 C 07/25/24 08:27 Pulse 50 L 07/25/24 08:27 Respiratory Rate 18 07/25/24 08:27 Blood Pressure 171/86 H 07/25/24 08:27 Pulse Oximetry 96 07/25/24 08:27 Temperature 36.6 C 07/25/24 08:27 Temperature Source Oral 07/25/24 08:27 Pulse 42 L 07/25/24 08:47 Pulse 88 07/25/24 08:47 Respiratory Rate 12 07/25/24 08:47 Respiratory Effort Normal, Non-Labored 07/25/24 08:47 Respiratory Depth Normal 07/25/24 08:47 Respiratory Pattern Normal 07/25/24 08:47 Blood Pressure 136/60 07/25/24 08:47 Blood Pressure Mean 89 07/25/24 08:47 Blood Pressure Position Sitting 07/25/24 08:27 Pulse Oximetry 99 07/25/24 08:47 Oxygen Delivery Method Room Air 07/25/24 08:27 Oxygen Flow Rate 0 07/25/24 08:27 Pain Level 5 07/25/24 08:59 Lab/Test Results Lab/Test Results: Laboratory Tests Range/Units 07/25/24 08:34 WBC (4.4-10.8) 10^3/uL 8.39 RBC (4.36-5.78) 10^6/uL 4.63 Hgb (13.5-17.5) g/dL 14.1 Hct (40.0-50.0) % 43.7 MCV (80-95) fL 94 MCH (27.0-33.0) pg 30.5 MCHC (32.0-36.0) % 32.3 RDW (11.8-14.1) % 13.1 Plt Count (130-400) 10^3/uL 206 MPV (8.0-11.0) fL 9.2 Immature Gran % % 0.4 Neutrophils % % 58.5 Lymphocytes % % 28.6 Monocytes % % 9.7 Eosinophils % % 2.1 Basophils % % 0.7 Nucleated RBC % (0.0-0.3) % 0.0 Absolute Neutrophils (1.2-6.7) 10^3/uL 4.91 Absolute Lymphocytes (1.2-3.4) 10^3/uL 2.40 Absolute Monocytes (0.1-0.8) 10^3/uL 0.81 H Absolute Eosinophils (0.0-0.7) 10^3/uL 0.18 Absolute Basophils (0.0-0.2) 10^3/uL 0.06 Medical Decision Making This dictation utilizes [id number] dictation software and may contain unedited grammatical errors. 83 year-old male presents to ED today by POV/ambulating with his son with a chief complaint of chest pain- vague onset over days, questionably exertional with 3/10 pain after walking his dog last night, had tachycardia before bed that self-resolved- days prior had been complaining of mid-thoracic back pain, adjusted by chiropractor without relief, now having some anterior L chest / shoulder / arm pain. Quality described as heaviness, like someone standing on his chest, with some shortness of breath, no radiation to diaphoresis, syncope, endorses some dizziness, denies fever, denies cough, denies hemoptysis. Severity is described as 1/10 currently. Palliating factors include took his normal baby aspirin this morning. Provoking factors include nothing specific. Events leading up to the incident/Associated Symptoms: Patient endorses history of CABG x3 in 2008 at [facility]. Patients' medical history: Impaired fasting glucose, ischemic heart disease, hyperlipidemia. Family and social history: Lives at home independently, has sons nearby that do help with care occasionally but overall stays active, eats healthy diet. Pertinent exam findings / vital signs include questionable irregular rhythm on arrival, consistently normal sinus rhythm on monitor throughout visit, no abdominal tenderness or pulsatile masses, neuro intact, benign abdomen, lungs CTA. Differential / pathologies of concern include ACS, aortic pathology, less likely PE, pneumonia, costochondritis. Diagnostic studies of: -CBC, CMP, D-dimer, serial troponins, BNP, lipase, CTA thorax abdomen pelvis, EKG -CBC is benign, CMP shows no acute actionable abnormality -Serial troponins show likely type I NSTEMI at 388 followed by 350 at 1 hour katty and 327 at 3-hour katty -BNP significantly elevated at 949 without pulmonary edema seen on imaging -lipase neg -EKG shows a Mobitz type I -CTA shows no PE, does show an incidental finding of a large 6 cm infrarenal fusiform aortic aneurysm without leakage, significant mural thrombus Interventions of: -IV fluid, 243 mg chewable aspirin, 1 dose nitro SL. ED Course/Assessment/Plan: 83-year-old male presents with 1 to 2 days of some back and chest pain with some radiation to shoulder, denies any sweating, endorsing dizziness, was most focal after walking his dog yesterday evening. His initial troponin is positive at 388 likely indicating acute coronary syndrome. I discussed his CT findings with Dr. Ku of [facility] who would like the patient brought down as soon as there is bed availability to receive cardiology clearance for procedure. I spoke with cardiology RICH Rooney at [facility] and the patient is excepted likely transfer with bed availability on Tuesday the , Dr. Ozzie Prater as accepting. Patient will be admitted to ICU here at [facility] while awaiting transfer. Findings not consistent with PE, STEMI, hemodynamic instability, persistent chest pain. Disposition of Non-ST elevation AK (NSTEMI), aneurysm of infrarenal abdominal aorta Patient verbalized understanding of the plan and return to ED criteria and engaged in shared decision making. Medical Records Medical records reviewed: Yes I reviewed the patient's medical records. Imaging Data Radiologic Study: Attestation: I personally reviewed and interpreted this imaging study as follows: Imaging: CT Scan Radiologist's impression: EXAM: CT THORAX ABD/PEL CTA CLINICAL HISTORY: chest pain. TECHNIQUE: Imaging Protocol: Axial CT angiography was performed with multi- slice acquisition and multi-planar and/or 3D reconstructions. CONTRAST MATERIAL: Intravenous: Omnipaque 350 Contrast volume:100 Oral: no COMPARISON: CT ABD/PELVIS WO W CONTRAST from 11/18/2008 CT CHEST FOR PULMONARY EMBOLUS from 04/16/2009 FINDINGS: CHEST: Pulmonary Arteries: There is suboptimal opacification of pulmonary arteries however there is no evidence of filling defect to suggest pulmonary emboli. Tracheobronchial tree: Patent where visualized. Bronchiectasis greatest at the right lower lobe. Atelectasis inferior lingula. Mediastinum and Ashlie: No dominant adenopathy or fluid collection. Small hiatal hernia. Pulmonary parenchyma: No consolidation or dominant measurable mass. Emphysematous changes Pleura: No effusion or pneumothorax. Heart: The heart is mildly dilated. Status post CABG. Mitral annular calcification. Aorta: Ascending aorta measures 4.1 cm. Descending aorta is tortuous and measures 3.1 cm. Bones: Degenerative changes in the spine. No compression fractures. Sternal wires. Tubes, Catheters, and Lines: None ABDOMEN AND PELVIS: Abdomen: Celiac axis/mesenteric arteries: Calcification at the origin of the celiac axis and SMA. New mild stenosis of the celiac axis. Moderate stenosis of the SMA. Renal Arteries: No evidence of occlusion or significant stenosis. Two arteries supply the left kidney. One artery supplies the right kidney. Mild stenosis of a t the origin of both left renal arteries. Aorta: 6 centimeter infrarenal fusiform aneurysm. No evidence of active leaking. Large amount of mural thrombus. Pelvis: Iliac Arteries: No evidence of occlusion or significant stenosis. Common Femoral Arteries: No evidence of occlusion or significant stenosis. ABDOMEN: Liver: Normal density. No measurable mass. Portal, Superior Mesenteric, and Splenic Veins: Unremarkable. Gallbladder and Biliary Tract: No radiodense calculus or dilation. Pancreas: Normal density, no abnormal calcifications or inflammatory process. Spleen: Normal. Adrenals: No masses seen. Kidneys: Normal size, contour and axis. No radiodense stones or obstructive uropathy. No suspicious masses seen. Bowel: No obstruction or bowel wall thickening. Diverticulosis. No evidence of diverticulitis. Peritoneal Cavity: No ascites, collection or mesenteric inflammatory response. Lymph Nodes: Within normal limits. Bones: Mild scoliosis and degenerative changes. Soft Tissues: Small fat containing left anterior abdominal wall hernia. PELVIS: Bladder: Symmetric distention, no gross wall thickening. Reproductive Organs: Enlarged prostate. Lymph Nodes: Within normal limits. Bones: Unremarkable. IMPRESSION: 6 centimeter infrarenal abdominal aortic aneurysm without evidence of leak. No evidence of dissection. Ascending aorta measures 4.1 cm. No gross evidence of pulmonary emboli. Lab Data Lab results reviewed: Yes I reviewed the patient's lab results. Labs: Laboratory Tests Range/Units 07/25/24 07/25/24 07/25/24 08:34 09:21 11:20 WBC (4.4-10.8) 10^3/uL 8.39 RBC (4.36-5.78) 10^6/uL 4.63 Hgb (13.5-17.5) g/dL 14.1 Hct (40.0-50.0) % 43.7 MCV (80-95) fL 94 MCH (27.0-33.0) pg 30.5 MCHC (32.0-36.0) % 32.3 RDW (11.8-14.1) % 13.1 Plt Count (130-400) 10^3/uL 206 MPV (8.0-11.0) fL 9.2 Immature Gran % % 0.4 Neutrophils % % 58.5 Lymphocytes % % 28.6 Monocytes % % 9.7 Eosinophils % % 2.1 Basophils % % 0.7 Nucleated RBC % (0.0-0.3) % 0.0 Absolute Neutrophils (1.2-6.7) 10^3/uL 4.91 Absolute Lymphocytes (1.2-3.4) 10^3/uL 2.40 Absolute Monocytes (0.1-0.8) 10^3/uL 0.81 H Absolute Eosinophils (0.0-0.7) 10^3/uL 0.18 Absolute Basophils (0.0-0.2) 10^3/uL 0.06 D-Dimer (<500) ng/mlFEU 3445 H Sodium (136-145) mmol/L 139 Potassium (3.5-5.1) mmol/L 3.8 Chloride (98-107) mmol/L 103 Carbon Dioxide (21.0-32.0) mmol/L 28.7 Anion Gap (3-11) mmol/L 7.3 BUN (7-18) mg/dL 19 H Creatinine (0.70-1.30) mg/dL 0.8 Est GFR (CKD-EPI 2020) (mL/min/1.73m2) 86.73 Glucose (74-106) mg/dL 99 Calcium (8.5-10.1) mg/dL 9.0 Total Bilirubin (0.2-1.0) mg/dL 0.56 AST (15-37) U/L 26 ALT (16-63) U/L 22 Alkaline Phosphatase (46-116) U/L 95 Troponin I High Sens (4-76) ng/L 388 H* 350 H* 327 H* NT-Pro-B Natriuret Pep (<300) pg/mL 949 H Total Protein (6.4-8.2) g/dL 7.3 Albumin (3.4-5.0) g/dL 3.5 Lipase (16-77) U/L 72 Quality:SDOH Health Related Social Needs: No Data to Display PFSH All Active Problems (Updated 07/25/24 @ 15:31 by RICH Owen) Aneurysm of infrarenal abdominal aorta (Acute) Non-ST elevation AK (NSTEMI) (Acute) Lesion of skin of nose (Acute) Bladder pain (Acute) acute, w/ 4am urination (none afterwards).. resolves with urination. Mild hesitency. Hx BPH? (SawPalmetto x years..) Wears hearing aid in both ears (Acute) Impaired fasting glucose (Acute) Sensorineural hearing loss of combined sites, bilateral (Acute 10/21/15) Other and unspecified hyperlipidemia (Acute 02/21/13) intolerant statins Low back pain (Chronic 02/21/13) Gastroesophageal reflux disease with esophagitis (Acute 12/21/11) Essential hypertension (Chronic 08/08/13) Chronic rhinitis (Acute 02/21/13) 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; 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 Benign prostate hyperplasia (Acute 06/06/14) Hx SawPalmetto x years.. Unclear if associated with bladder pain/bladder stretch, trial FLOMAX + UROL referral. 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 Chronic serous otitis media, right ear Eustachian tube dysfunction right 05/28/21 resolved ENT-Donte Conductive hearing loss, external ear Recurrent acute serous otitis media of right ear 03/10/21 Dr Kent 05/28/21 Resolved Bilateral knee pain Sciatica (10/27/12) LEFT: RECURRENT Other pulmonary embolism with acute cor pulmonale (12/21/11) 03/2009 Impairment of auditory discrimination of both ears (08/21/15) Asymmetrical sensorineural hearing loss of both ears (08/21/15) Erectile dysfunction (12/21/11) Chronic prostatitis (12/21/11) Surgical History cataract surgery OD (04/25/17) Coronary Artery Bypass [place] (CABG) (08/15/15) Family History Father , aneurysm at age 57. Essential hypertension Mother No problems noted. Sister No problems noted. Brother No problems noted. Social History Smoking/Tobacco Use Status: Former Tobacco Use Smoking risk assessment performed?: Yes Alcohol Intake: never Drug use: Never Substance use type: does not use Caregiver/Support person: No Housing: house Number of Children: 3 Communication Needs: Hard of Hearing and Corrective Lenses current occupation: retired Current gender identity: male What is your relationship status?: How often do you talk on the phone with friends or family?: three or more times per week How often do you get together with friends or relatives?: three or more times per week Panel score (0-1 are the most socially isolated patients): 1 What type of physical activity do you participate in: walking and other Details: stretching exercises q am x 1 hour Duration: 30-45 minutes/day Frequency: daily Seatbelt use: always Drive intox or ride w/intox cab driver: No Working smoke detector in home: Yes Carbon monox detector in home: Yes Do you feel safe at home: Yes Do you feel safe in your relationship?: Yes
[2024-07-25 09:35] LABS: ALT 22 U/L (16-63); AST 26 U/L (15-37); Albumin 3.5 g/dL (3.4-5.0); Alkaline Phosphatase 95 U/L (46-116); Anion Gap 7.3 mmol/L (3-11); BUN 19 mg/dL (7-18); Bilirubin, Total 0.56 mg/dL (0.2-1.0); CO2 28.7 mmol/L (21.0-32.0); CREATININE 0.8 mg/dL (0.70-1.30); Chloride 103 mmol/L (98-107); Estimated GFR 86.73 (mL/min/1.73m2); Glucose 99 mg/dL (74-106); Lipase 72 U/L (16-77); NT-proBNP 949 pg/mL (<300); Potassium 3.8 mmol/L (3.5-5.1); Sodium 139 mmol/L (136-145); Total Protein 7.3 g/dL (6.4-8.2)
[2024-07-25 09:40] LABS: D-Dimer 3445 ng/mlFEU (<500)
[2024-07-25 09:42] LABS: Troponin I 388 ng/L (4-76)
[2024-07-25 10:15] LABS: Troponin I 350 ng/L (4-76)
--- NOTE | 2024-07-25 10:15 | DI.CT_ITS ---
Exam(s) CT THORAX ABD/PEL CTA EXAM: CT THORAX ABD/PEL CTA CLINICAL HISTORY: chest pain. TECHNIQUE: Imaging Protocol: Axial CT angiography was performed with multi-slice acquisition and m ulti-planar and/or 3D reconstructions. CONTRAST MATERIAL: Intravenous: Omnipaque 350 Contrast volume:100 Oral: no COMPARISON: CT ABD/PELVIS WO W CONTRAST from 11/18/2008 CT CHEST FOR PULMONARY EMBOLUS from 04/16/2009 FINDINGS: CHEST: Pulmonary Arteries: There is suboptimal opacification of pulmonary arteries however there is no evide nce of filling defect to suggest pulmonary emboli. Tracheobronchial tree: Patent where visualized. Bronchiectasis greatest at the right lower lobe. A telectasis inferior lingula. Mediastinum and Ashlie: No dominant adenopathy or fluid collection. Small hiatal hernia. Pulmonary parenchyma: No consolidation or dominant measurable mass. Emphysematous changes Pleura: No effusion or pneumothorax. Heart: The heart is mildly dilated. Status post CABG. Mitral annular calcification. Aorta: Ascending aorta measures 4.1 cm. Descending aorta is tortuous and measures 3.1 cm. Bones: Degenerative changes in the spine. No compression fractures. Sternal wires. Tubes, Catheters, and Lines: None ABDOMEN AND PELVIS: Abdomen: Celiac axis/mesenteric arteries: Calcification at the origin of the celiac axis and SMA. New mild prosper nosis of the celiac axis. Moderate stenosis of the SMA. Renal Arteries: No evidence of occlusion or significant stenosis. Two arteries supply the left kidne y. One artery supplies the right kidney. Mild stenosis of at the origin of both left renal arteries. Aorta: 6 centimeter infrarenal fusiform aneurysm. No evidence of active leaking. Large amount of mura l thrombus. Pelvis: Iliac Arteries: No evidence of occlusion or significant stenosis. Common Femoral Arteries: No evidence of occlusion or significant stenosis. ABDOMEN: Liver: Normal density. No measurable mass. Portal, Superior Mesenteric, and Splenic Veins: Unremarkable. Gallbladder and Biliary Tract: No radiodense calculus or dilation. Pancreas: Normal density, no abnormal calcifications or inflammatory process. Spleen: Normal. Adrenals: No masses seen. Kidneys: Normal size, contour and axis. No radiodense stones or obstructive uropathy. No suspicious m asses seen. Bowel: No obstruction or bowel wall thickening. Diverticulosis. No evidence of diverticulitis. Peritoneal Cavity: No ascites, collection or mesenteric inflammatory response. Lymph Nodes: Within normal limits. Bones: Mild scoliosis and degenerative changes. Soft Tissues: Small fat containing left anterior abdominal wall hernia. PELVIS: Bladder: Symmetric distention, no gross wall thickening. Reproductive Organs: Enlarged prostate. Lymph Nodes: Within normal limits. Bones: Unremarkable. IMPRESSION: 6 centimeter infrarenal abdominal aortic aneurysm without evidence of leak. No evidence of dissection . Ascending aorta measures 4.1 cm. No gross evidence of pulmonary emboli. Findings called to Dr. Henry of the emergency department. RADIATION DOSE DELIVERED: 283.56mGy.cm Total DLP DATA REPOSITORY: All CT scans at this facility are submitted to the National Radiology Data Registry (NRDR) Dose Index Registry (DIR) with the [employer] (ACR). RADIATION OPTIMIZATION: All CT scans at this facility use at least one of these dose optimization te chniques: automated exposure control; mA and/or kV adjustment per patient size (includes targeted exa ms where dose is matched to clinical indication); or iterative reconstruction.
[2024-07-25] MEDS: Normal Saline - Diluent 50 ML VIAL IJ (10:41)
[2024-07-25] MEDS: Omnipaque 350 MG/ML 100 ML BTL IJ (10:42)
[2024-07-25 11:46] LABS: Troponin I 327 ng/L (4-76)
--- NOTE | 2024-07-25 13:14 | W.PM.PROGNOT ---
Date of Service Date of service: 07/25/24 Time of Service: 18:28 Objective Last Vital Signs Temp 36.6 C 07/25/24 08:27 Pulse 70 07/25/24 12:01 Resp 22 07/25/24 12:01 BP 112/82 07/25/24 12:01 Pulse Ox 97 07/25/24 12:01 Laboratory Results - last 24 hr 07/25/24 07/25/24 07/25/24 08:34 09:21 11:20 WBC 8.39 RBC 4.63 Hgb 14.1 Hct 43.7 MCV 94 MCH 30.5 MCHC 32.3 RDW 13.1 Plt Count 206 MPV 9.2 Immature Gran % 0.4 Neutrophils % 58.5 Lymphocytes % 28.6 Monocytes % 9.7 Eosinophils % 2.1 Basophils % 0.7 Nucleated RBC % 0.0 Absolute Neutrophils 4.91 Absolute Lymphocytes 2.40 Absolute Monocytes 0.81 H Absolute Eosinophils 0.18 Absolute Basophils 0.06 D-Dimer 3445 H Sodium 139 Potassium 3.8 Chloride 103 Carbon Dioxide 28.7 Anion Gap 7.3 BUN 19 H Creatinine 0.8 Est GFR (CKD-EPI 2020) 86.73 Glucose 99 Calcium 9.0 Total Bilirubin 0.56 AST 26 ALT 22 Alkaline Phosphatase 95 Troponin I High Sens 388 H* 350 H* 327 H* NT-Pro-B Natriuret Pep 949 H Total Protein 7.3 Albumin 3.5 Lipase 72
[2024-07-25] MEDS: Heparin in 0.45% NaCl 25,000 UNIT/250 ML BAG 10 UNIT IV (13:33)
[2024-07-25 14:15] LABS: Troponin I 310 ng/L (4-76)
[2024-07-25 14:19] LABS: PTT Activated 27.3 sec (23.6-32.8); Prothrombin Time 10.4 sec (9.1-11.1)
[2024-07-25 17:31] LABS: Troponin I 271 ng/L (<or=76)
--- NOTE | 2024-07-25 18:30 | RT.EKG_ITS ---
APPROVED REPORT Exam: Resting ECG Reason for Exam: Per MD request Patient Location: I HR:77 bpm ECG Measurements Heart Rate 77 AXIS LA 358 P 0 QRSd 98 QRS -41 QT 367 T 69 QTc 416 Conclusion Sinus rhythm...normal P axis, V-rate 50- 99 Prolonged LA interval...LA >220, V-rate 50- 90
--- NOTE | 2024-07-25 18:50 | W.PC.ACHO ---
Registration Status: Primary Language: Preferred Language: ED Information & Data Chief Complaint Chest Pain 07/25/24 09:14 Triage Note chest pain started last 07/25/24 08:27 night when he went to bed, worsening this morning. Pain also in middle of back Going to the chiropractor for that recently Medical / Surgical History (Last Reviewed 07/12/24 @ 14:33 by Mode Kent MD) Acute serous otitis media, right ear History of excessive cerumen Actinic keratosis (~07/2022) Submandibular sialoadenitis Sensorineural hearing loss, bilateral History of SCC (squamous cell carcinoma) of skin Conductive hearing loss in right ear Chronic serous otitis media, right ear Eustachian tube dysfunction Conductive hearing loss, external ear Recurrent acute serous otitis media of right ear Bilateral knee pain Sciatica (10/27/12) Other pulmonary embolism with acute cor pulmonale (12/21/11) Impairment of auditory discrimination of both ears (08/21/15) Asymmetrical sensorineural hearing loss of both ears (08/21/15) Erectile dysfunction (12/21/11) Chronic prostatitis (12/21/11) (Last Reviewed 07/12/24 @ 14:33 by Mode Kent MD) cataract surgery OD (04/25/17) Coronary Artery Bypass Gaft (CABG) (08/15/15) Most Recent Vital Signs Temperature 36.6 C 07/25/24 17:48 Temperature Source Temporal Artery Scan 07/25/24 17:48 Pulse 74 07/25/24 15:01 Pulse 78 07/25/24 15:50 Respiratory Rate 13 07/25/24 15:50 Respiratory Effort Normal, Non-Labored 07/25/24 08:47 Respiratory Depth Normal 07/25/24 08:47 Respiratory Pattern Normal 07/25/24 08:47 Blood Pressure 125/103 H 07/25/24 15:01 Blood Pressure Mean 110 07/25/24 15:01 Blood Pressure Position Sitting 07/25/24 08:27 Pulse Oximetry 95 07/25/24 15:50 Oxygen Delivery Method Room Air 07/25/24 17:48 Oxygen Flow Rate 0 07/25/24 17:48 Pain Level 0 07/25/24 17:48 Allergies doxycycline Allergy (Unknown, Verified 07/12/24 13:36) rash clindamycin Adverse Reaction (Severe, Verified 07/12/24 13:36) Diarrhea cyclobenzaprine Adverse Reaction (Intermediate, Verified 07/12/24 13:36) difficulty urinating montelukast (From Singulair) Adverse Reaction (Intermediate, Verified 07/12/24 13:36) terrible nightmares per pt. ezetimibe Adverse Reaction (Mild, Verified 07/12/24 13:36) unknown Mhlrunr-ZGB-PiO Reductase Inhibitor (Bbhohch-Hpd-Qib Reductase Inhibitor) Adverse Reaction (Unknown, Verified 07/12/24 13:36) muscle weakness Precautions Isolation Standard precaution 07/25/24 08:47 Active Medications Generic Name Dose Route Start Last Admin Trade Name Freq PRN Reason Stop Dose Admin Heparin Sodium/Sodium Chloride 25,000 unit in 250 mls @ 10 mls/hr 07/25/24 12:45 07/25/24 13:33 IV 1,000 units/hr INFUSION MARK ANTHONY 10 mls/hr Administration Protocol 1,000 UNITS/HR Nitroglycerin 0.3 mg 07/25/24 08:41 07/25/24 08:59 Nitroglycerin 0.3 Mg Tab SL 0.3 mg Q5 MIN PRN X3 PRN Administration IV IV Catheter Type [Right Peripheral IV Forearm] IV Catheter Gauge [Right 18 Forearm] Diet Orders Category Date Time Status Heart Healthy Eating [DIET] Nutrition 07/25/24 Dinner Active Diagnostics 07/25/24 07/25/24 07/25/24 Range/Units 19:30 17:00 13:31 WBC (4.4-10.8) 10^3/uL RBC (4.36-5.78) 10^6/uL Hgb (13.5-17.5) g/dL Hct (40.0-50.0) % MCV (80-95) fL MCH (27.0-33.0) pg MCHC (32.0-36.0) % RDW (11.8-14.1) % Plt Count (130-400) 10^3/uL MPV (8.0-11.0) fL Immature Gran % % Neutrophils % % Lymphocytes % % Monocytes % % Eosinophils % % Basophils % % Nucleated RBC % (0.0-0.3) % Absolute Neutrophils (1.2-6.7) 10^3/uL Absolute Lymphocytes (1.2-3.4) 10^3/uL Absolute Monocytes (0.1-0.8) 10^3/uL Absolute Eosinophils (0.0-0.7) 10^3/uL Absolute Basophils (0.0-0.2) 10^3/uL PT 10.4 (9.1-11.1) sec INR 1.0 (0.9-1.1) APTT Pending 27.3 (23.6-32.8) sec D-Dimer (<500) ng/mlFEU Sodium (136-145) mmol/L Potassium (3.5-5.1) mmol/L Chloride (98-107) mmol/L Carbon Dioxide (21.0-32.0) mmol/L Anion Gap (3-11) mmol/L BUN (7-18) mg/dL Creatinine (0.70-1.30) mg/dL Est GFR (CKD-EPI 2020) (mL/min/1.73m2) Glucose (74-106) mg/dL Calcium (8.5-10.1) mg/dL Total Bilirubin (0.2-1.0) mg/dL AST (15-37) U/L ALT (16-63) U/L Alkaline Phosphatase (46-116) U/L Troponin I 271 H* 310 H* (4-76) ng/L Troponin I High Sens Pending (4-76) ng/L NT-Pro-B Natriuret Pep (<300) pg/mL Total Protein (6.4-8.2) g/dL Albumin (3.4-5.0) g/dL Lipase (16-77) U/L 07/25/24 07/25/24 07/25/24 Range/Units 11:20 09:21 08:34 WBC 8.39 (4.4-10.8) 10^3/uL RBC 4.63 (4.36-5.78) 10^6/uL Hgb 14.1 (13.5-17.5) g/dL Hct 43.7 (40.0-50.0) % MCV 94 (80-95) fL MCH 30.5 (27.0-33.0) pg MCHC 32.3 (32.0-36.0) % RDW 13.1 (11.8-14.1) % Plt Count 206 (130-400) 10^3/uL MPV 9.2 (8.0-11.0) fL Immature Gran % 0.4 % Neutrophils % 58.5 % Lymphocytes % 28.6 % Monocytes % 9.7 % Eosinophils % 2.1 % Basophils % 0.7 % Nucleated RBC % 0.0 (0.0-0.3) % Absolute Neutrophils 4.91 (1.2-6.7) 10^3/uL Absolute Lymphocytes 2.40 (1.2-3.4) 10^3/uL Absolute Monocytes 0.81 H (0.1-0.8) 10^3/uL Absolute Eosinophils 0.18 (0.0-0.7) 10^3/uL Absolute Basophils 0.06 (0.0-0.2) 10^3/uL PT (9.1-11.1) sec INR (0.9-1.1) APTT (23.6-32.8) sec D-Dimer 3445 H (<500) ng/mlFEU Sodium 139 (136-145) mmol/L Potassium 3.8 (3.5-5.1) mmol/L Chloride 103 (98-107) mmol/L Carbon Dioxide 28.7 (21.0-32.0) mmol/L Anion Gap 7.3 (3-11) mmol/L BUN 19 H (7-18) mg/dL Creatinine 0.8 (0.70-1.30) mg/dL Est GFR (CKD-EPI 2020) 86.73 (mL/min/1.73m2) Glucose 99 (74-106) mg/dL Calcium 9.0 (8.5-10.1) mg/dL Total Bilirubin 0.56 (0.2-1.0) mg/dL AST 26 (15-37) U/L ALT 22 (16-63) U/L Alkaline Phosphatase 95 (46-116) U/L Troponin I (4-76) ng/L Troponin I High Sens 327 H* 350 H* 388 H* (4-76) ng/L NT-Pro-B Natriuret Pep 949 H (<300) pg/mL Total Protein 7.3 (6.4-8.2) g/dL Albumin 3.5 (3.4-5.0) g/dL Lipase 72 (16-77) U/L Intake and Output - 24 Hour Total 07/25/24 08:24 thru 07/25/24 17:48 Weight 80 kg Falls Risk Assessment History of Falls No History 07/25/24 17:48 Contributing Factors Unstable 07/25/24 17:48 Ambulatory Aids Independent 07/25/24 17:48 Tubes/Lines With any additional score 07/25/24 17:48 Gait Evaluation No gait disturbance 07/25/24 17:48 Cognition No cognitive impairment 07/25/24 17:48 Fall Total Score 23 07/25/24 17:48 Level of Risk Standard/Low Risk 07/25/24 17:48 v v v v v v v v v Sending and/or Receiving Nurses: Please use comment section below to note any information pertinent to the patient hand-off not included above. Information / Comments: All questions answered Report received from: Baldo Neff RN
--- NOTE | 2024-07-25 19:02 | W.PM.HP.N ---
Date of service: 07/25/24 Time of Service: 19:02 Assessment and Plan Assessment and plan (1) Non-ST elevation MS (NSTEMI): Status: Acute Assessment and plan: continue heparin and aspirin. patient has reaction to statins (i.e. muscle weakness); he should be considered for Repatha. patient to be transferred to [facility] tomorrow to cardiology where he should have heart cath then further treatment options can be decided prior to his having his AAA stent. CC time spent examining patient, interviewing patient, discussion w/ nursing, family (son) and discussion w/ ED as well as putting in orders and documentation was over 60 minutes of which 45 minutes was spent at the bedside (2) Aneurysm of infrarenal abdominal aorta: Status: Acute Assessment and plan: asymptomatic 6 cm infrrenal AAA; referral to [facility] vascular tomorrow Qualifiers: Presence of rupture: without rupture Qualified Code(s): I71.43 - Infrarenal abdominal aortic aneurysm, without rupture (3) Mobitz type I Wenckebach atrioventricular block: Status: Acute Assessment and plan: hold toprol XL even though BB is optimal treatment for AAA prevention of dissection; he is now in a prolonged 1st degree AV block w/ MS 358 msec. If he becomes hypertensive then I would recommend nicardipine drip. NTG may alleviate CP but not as good of a arterial vasodilator as nicardipine. (4) First degree AV block: Status: Acute (5) Essential hypertension: Status: Chronic Assessment and plan: monitor off metoprolol given his heart block but if he becomes hypertensive i.e. sustained SBP >=150 MM then consider low dose nicardipine drip. History of Present Illness History of Present Illness Chief Complaint: chest pain/upper back pain Narrative: 83 yr old male, nonsmoker, nondiabetic who has known CAD s/p CABG x 3 vessels 2008 who presents w/ symptoms of exertional chest pain which he has had for months to years, often occurring w/ walking his dog but usually brief. He attributes his CP to his prior sternotomy and says he has had this ever since his CABG. However, last night while walking his dog it occurred again but did not seem unusual except that when he got home it reoccurred at rest w/ some dyspnea. He eventually went to sleep. He did not have any NTG but symptoms subsided on its own. However his symptoms reoccurred this morning and was accompanied by pain in his upper back, shoulders and the upper chest/throat area and was accompanied by dyspnea. Workup in the ED revealed elevated HS troponin I levels of 388 ng/L w/ follow up levels of 350, 327 and now this afternoon declining to 310 and 271. This was accompanied by pro-bnp 949. Rest of his CMP, CBC, protime and aPTT were unremarkable, however his d-dimer was elevated at 3445 which prompted CTA of chest and abdomen.CTA did not demonstrate P.E. but dilated ascending thoracic aorta of 4.1 cm but 6 cm non-dissecting infrarenal AAA. EKG was remarkable for sinus rhythm w/ 2nd degree AV wenkebach block w/ anteroseptal ST-T changes suggestive of ischemia or infarct and some subtle high lateral ST abnormalities. No repeat EKG were done until after he arrived to the ICU, where his current EKG demonstrates anteroseptal T wave inversion. [facility] cardiology and vascular surgery were consulted by the ED and they have accepted the patient for transfer for treatment of his NSTEMI and AAA. [facility] cardiology advised the ED to put him on aspirin and heparin but no plavix. The patient already had been on aspirin 81 mg which he had taken so he was given the remainder of a loading dose 243 mg and was bolused w/heparin and put on heparin drip. He also received NTG 0.3 mg SL x one dose. He has been pain free since admission. He has been accepted to the service of Dr. Ozzie Prater, cardiology at [facility] and vascular surgeon, Dr. Ku. Review of Systems All systems reviewed & are unremarkable except as noted in HPI and below PFSH All Active Problems (Updated 07/25/24 @ 19:25 by Nilesh Melendrez MD) First degree AV block (Acute) Mobitz type I Wenckebach atrioventricular block (Acute) Aneurysm of infrarenal abdominal aorta (Acute) Non-ST elevation MS (NSTEMI) (Acute) Lesion of skin of nose (Acute) Bladder pain (Acute) acute, w/ 4am urination (none afterwards).. resolves with urination. Mild hesitency. Hx BPH? (SawPalmetto x years..) Wears hearing aid in both ears (Acute) Impaired fasting glucose (Acute) Sensorineural hearing loss of combined sites, bilateral (Acute 10/21/15) Other and unspecified hyperlipidemia (Acute 02/21/13) intolerant statins Low back pain (Chronic 02/21/13) Gastroesophageal reflux disease with esophagitis (Acute 12/21/11) Essential hypertension (Chronic 08/08/13) Chronic rhinitis (Acute 02/21/13) 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; 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 Benign prostate hyperplasia (Acute 06/06/14) Hx SawPalmetto x years.. Unclear if associated with bladder pain/bladder stretch, trial FLOMAX + UROL referral. 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/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 Conductive hearing loss in right ear Chronic serous otitis media, right ear Eustachian tube dysfunction right 05/28/21 resolved ENT-Donte Conductive hearing loss, external ear Recurrent acute serous otitis media of right ear 03/10/21 Dr Kent 05/28/21 Resolved Bilateral knee pain Sciatica (10/27/12) LEFT: RECURRENT Other pulmonary embolism with acute cor pulmonale (12/21/11) 03/2009 Impairment of auditory discrimination of both ears (08/21/15) Asymmetrical sensorineural hearing loss of both ears (08/21/15) Erectile dysfunction (12/21/11) Chronic prostatitis (12/21/11) Surgical History cataract surgery OD (04/25/17) Coronary Artery Bypass Gaft (CABG) (08/15/15) Family History Father , aneurysm at age 57. Essential hypertension Mother No problems noted. Sister No problems noted. Brother No problems noted. Social History Smoking/Tobacco Use Status: Former Tobacco Use Smoking risk assessment performed?: Yes Alcohol Intake: never Drug use: Never Substance use type: does not use Caregiver/Support person: No Housing: house Number of Children: 3 Communication Needs: Hard of Hearing and Corrective Lenses current occupation: retired Current gender identity: male What is your relationship status?: How often do you talk on the phone with friends or family?: three or more times per week How often do you get together with friends or relatives?: three or more times per week Panel score (0-1 are the most socially isolated patients): 1 What type of physical activity do you participate in: walking and other Details: stretching exercises q am x 1 hour Duration: 30-45 minutes/day Frequency: daily Seatbelt use: always 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 ezetimibe AdvReac Mild unknown Verified 07/12/24 13:36 Lyxanzo-VUG-KqU Reductase AdvReac Unknown muscle Verified 07/12/24 13:36 Inhibitor (Zjrgwbf-Cwe-Vwg weakness Reductase Inhibitor) Home Medications ?Medication ?Instructions ?Recorded ?Confirmed ?Type acetaminophen 325 mg tablet 325 mg PO PRN PRN 02/15/13 07/25/24 History aspirin 81 mg chewable tablet 81 mg PO DAILY 02/15/13 07/25/24 History (Aspirin Low-Strength) antiarthritic combination no.2 900 900 mg PO DAILY 09/05/19 07/25/24 History mg tablet (glucosamine-chondroitin) omega-3 fatty acids-fish oil 300 3 cap PO DAILY 09/05/19 07/25/24 History mg-1,000 mg capsule cholecalciferol (vitamin D3) 125 125 mcg PO DAILY PRN 09/02/20 07/25/24 History mcg (5,000 unit) capsule calcium carbonate (Tums Ultra) 400 mg PO DAILY PRN 10/14/21 07/25/24 History polyethylene glycol 3350 17 17 g PO .qMWF or PRN 07/21/22 07/25/24 History gram/dose oral powder (Miralax) methocarbamol 500 mg tablet 500 mg PO BID PRN back pain #20 09/29/22 07/25/24 Rx tabs olopatadine 0.2 % eye drops 1 drp ophthalmic (eye) DAILY 08/11/23 07/25/24 History (Pataday Once Daily Relief) metoprolol succinate 25 mg 25 mg PO DAILY #90 tabs 01/18/24 07/25/24 Rx tablet,extended release 24 hr tamsulosin 0.4 mg capsule (Flomax) 0.4 mg PO QHS #90 caps 05/24/24 07/25/24 Rx saw palmetto 450 mg capsule 450 mg PO DAILY 06/21/24 07/25/24 History Exam Narrative Exam Narrative: Elderly white male sitting up in bed, slightly hard of hearing, NAD, alert and oriented HEENT: unremarkable Neck: no JVD, no bruits Lungs: clear Heart: RRR, no murmur or rub or gallops Abdomen: nondistended, soft, nontender, palapable pulsatile mass w/ bruit over epigastrium Normal femoral pulses, normal popliteal pulses, normal pedal pulses; no edema or cyanosis Neuro grossly normal CN, normal motor and sensory to light touch. Results Labs 07/25/24 08:34 07/25/24 08:34 Labs: Laboratory Results - last 24 hr 07/25/24 07/25/24 07/25/24 08:34 09:21 11:20 WBC 8.39 RBC 4.63 Hgb 14.1 Hct 43.7 MCV 94 MCH 30.5 MCHC 32.3 RDW 13.1 Plt Count 206 MPV 9.2 Immature Gran % 0.4 Neutrophils % 58.5 Lymphocytes % 28.6 Monocytes % 9.7 Eosinophils % 2.1 Basophils % 0.7 Nucleated RBC % 0.0 Absolute Neutrophils 4.91 Absolute Lymphocytes 2.40 Absolute Monocytes 0.81 H Absolute Eosinophils 0.18 Absolute Basophils 0.06 PT INR APTT D-Dimer 3445 H Sodium 139 Potassium 3.8 Chloride 103 Carbon Dioxide 28.7 Anion Gap 7.3 BUN 19 H Creatinine 0.8 Est GFR (CKD-EPI 2020) 86.73 Glucose 99 Calcium 9.0 Total Bilirubin 0.56 AST 26 ALT 22 Alkaline Phosphatase 95 Troponin I Troponin I High Sens 388 H* 350 H* 327 H* NT-Pro-B Natriuret Pep 949 H Total Protein 7.3 Albumin 3.5 Lipase 72 07/25/24 07/25/24 13:31 17:00 WBC RBC Hgb Hct MCV MCH MCHC RDW Plt Count MPV Immature Gran % Neutrophils % Lymphocytes % Monocytes % Eosinophils % Basophils % Nucleated RBC % Absolute Neutrophils Absolute Lymphocytes Absolute Monocytes Absolute Eosinophils Absolute Basophils PT 10.4 INR 1.0 APTT 27.3 D-Dimer Sodium Potassium Chloride Carbon Dioxide Anion Gap BUN Creatinine Est GFR (CKD-EPI 2020) Glucose Calcium Total Bilirubin AST ALT Alkaline Phosphatase Troponin I 310 H* 271 H* Troponin I High Sens NT-Pro-B Natriuret Pep Total Protein Albumin Lipase Last Vital Signs Temp 36.6 C 07/25/24 17:48 Pulse 74 07/25/24 15:01 Resp 13 07/25/24 15:50 BP 125/103 H 07/25/24 15:01 Pulse Ox 95 07/25/24 15:50 Time Spent Time spent with Patient: 55-74 minutes Time was spent: preparing to see the patient(eg.review tests), obtaining and/or reviewing separately otained hiistory, ordering medications,tests, procedures, referring, communicating with other health floor care specialist, indepentently interpreting results, counseling the patient and care coordination
[2024-07-25] MEDS: Patient's Own Medication 1 EACH MISC PO (19:35)
[2024-07-25] MEDS: Tamsulosin 0.4 MG CAPCR PO (19:35)
[2024-07-25 20:03] LABS: PTT Activated 51.1 sec (23.6-32.8)
[2024-07-26] VITALS (80 sets, daily range): BP systolic 116–164; BP diastolic 61–135; PULSE 61–93; RESP 12–28; TEMP 36.4–36.9; O2SAT 93–98
[2024-07-26 03:44] LABS: PTT Activated 67.9 sec (23.6-32.8)
[2024-07-26 04:00] LABS: Calculated LDL 113 mg/dL (<100); Cholesterol 180 mg/dL (<200); HDL Cholesterol 45 mg/dL (40-60); Triglyceride 114 mg/dL (<150)
[2024-07-26] MEDS: Heparin in 0.45% NaCl 25,000 UNIT/250 ML BAG 11.5 UNIT IV (04:34)
[2024-07-26] MEDS: Omega-3 Fatty Acids 1000 MG CAP PO (08:40)
[2024-07-26] MEDS: Patient's Own Medication 1 EACH MISC PO (08:40)
[2024-07-26] MEDS: Normal Saline Flush 10 ML SYR IVP (08:40)
[2024-07-26] MEDS: Aspirin 81 MG CHEW PO (08:40)
--- NOTE | 2024-07-26 09:36 | INITIAL_ITS ---
Date of service: 07/26/24 Time of Service: 09:36 Care Management Initial Assmt Initial Assessment Reason for Hospitalization: NSTEMI Functional Status/Living Situation Patient Presentation: Angel was sitting up in bed chatting with a visitor when CM met with him. He was pleasant in interaction and agreeable to conversation. Angel was admitted with an NSTEMI. He has been accepted for [place] [facility] [place]. Prater in Cardiology, however there are no beds available. Angel lives alone in a single family home in [facility]. 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 He has 3 children, two of whom live out of state. Angel informed CM that although he does not live near all of his family, they are in close contact and are supportive of one another. Town of Residence: [place] Resides with: Alone Significant Other/Family: Local (one child lives locally; two live out of state ([place] and [place])) Employment Status: Retired Instrumental Activities of Daily Living (ADLs): Independent Medications Medication Management: No Issues/Barriers identified Physical Functioning/Mobility Assistive Device: none Advance Directives Advance Directives: Do you have an Advance Directive: Y 07/25/24 15:28 AD On File at [facility]: Y 07/25/24 15:28 Date Asked 07/25/24 07/25/24 10:19 AD Date Reviewed 07/25/24 07/25/24 15:28 COLST On File at [facility] COLST Date Scanned Code Status Resuscitation Status Full Code Portal Pt does not currently have a portal and education provided: No Insurance Coverage/Financial Issues Insurance: Medicare [facility] Care Team Visit Care Team Role Provider Type Jaqui Baez NP Primary Care Provider NURSE PRACTITIONER RICH Owen Emergency Provider PHYSICIANS DISULFURIZER TENDER Nilesh Melendrez MD Admit Provider [facility] STAFF PHYSICIAN Attending Provider Discharge Potential Discharge Needs: Other (transfer [place] [facility] Anticipated Barriers to Discharge: Bed availability Patient/Family Education Needs: Review discharge instructions, discuss Ask Me Three Transportation: EMS Plan: Angel was admitted with an NSTEMI. He has been accepted for transfer [place] [facility] [place]. Ozzie Prater in Cardiology and is waiting for a bed. CM will follow and continue to support discharge needs. PFSH All Active Problems First degree AV block (Acute) Mobitz type I Wenckebach atrioventricular block (Acute) Aneurysm of infrarenal abdominal aorta (Acute) Non-ST elevation [place] (NSTEMI) (Acute) Lesion of skin of nose (Acute) Bladder pain (Acute) acute, w/ 4am urination (none afterwards).. resolves with urination. Mild hesitency. Hx BPH? (SawPalmetto x years..) Wears hearing aid in both ears (Acute) Impaired fasting glucose (Acute) Sensorineural hearing loss of combined sites, bilateral (Acute 10/21/15) Other and unspecified hyperlipidemia (Acute 02/21/13) intolerant statins Low back pain (Chronic 02/21/13) Gastroesophageal reflux disease with esophagitis (Acute 12/21/11) Essential hypertension (Chronic 08/08/13) Chronic rhinitis (Acute 02/21/13) 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; 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 Benign prostate hyperplasia (Acute 06/06/14) Hx SawPalmetto x years.. Unclear if associated with bladder pain/bladder stretch, trial FLOMAX + UROL referral. 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 Chronic serous otitis media, right ear Eustachian tube dysfunction right 05/28/21 resolved [facility] Conductive hearing loss, external ear Recurrent acute serous otitis media of right ear 03/10/21 Dr Kent 05/28/21 Resolved Bilateral knee pain Sciatica (10/27/12) LEFT: RECURRENT Other pulmonary embolism with acute cor pulmonale (12/21/11) 03/2009 Impairment of auditory discrimination of both ears (08/21/15) Asymmetrical sensorineural hearing loss of both ears (08/21/15) Erectile dysfunction (12/21/11) Chronic prostatitis (12/21/11) Surgical History cataract surgery OD (04/25/17) Coronary Artery Bypass Gaft (CABG) (08/15/15) Family History Father , aneurysm at age 57. Essential hypertension Mother No problems noted. Sister No problems noted. Brother No problems noted. Social History Smoking/Tobacco Use Status: Former Tobacco Use Smoking risk assessment performed?: Yes Alcohol Intake: never Drug use: Never Substance use type: does not use Caregiver/Support person: No Housing: house Number of Children: 3 Communication Needs: Hard of Hearing and Corrective Lenses current occupation: retired Current gender identity: male What is your relationship status?: How often do you talk on the phone with friends or family?: three or more times per week How often do you get together with friends or relatives?: three or more times per week Panel score (0-1 are the most socially isolated patients): 1 What type of physical activity do you participate in: walking and other Details: stretching exercises q am x 1 hour Duration: 30-45 minutes/day Frequency: daily Seatbelt use: always Drive intox or ride w/intox 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 Working smoke detector in home: Yes Carbon monox detector in home: Yes Do you feel safe at home: Yes Do you feel safe in your relationship?: Yes SDOH(Care Management) Screening Will the Patient Participate in the Screening?: Yes Do you worry about having a steady place to live?: no In the past 12 months, have you had to go without electric, gas, oil or water in your home?: no Have you or anyone in your house had to go without enough food to eat?: no Has lack of transportation kept you from medical appointments or from doing things needed for daily living?: no Has anyone in your support network made you feel unsafe for any reason?: no
[2024-07-26] MEDS: Polyethylene Glycol 3350 17 GM PACKET PO (09:42)
[2024-07-26] MEDS: amLODIPine 2.5 MG TAB PO (09:58)
--- NOTE | 2024-07-26 10:15 | RT.EKG_ITS ---
APPROVED REPORT Exam: Resting ECG Reason for Exam: Rhythm concern, check Patient Location: I HR:70 bpm ECG Measurements Heart Rate 70 AXIS CO 393 P 53 QRSd 101 QRS -36 QT 399 T 56 QTc 431 Conclusion Sinus rhythm...normal P axis, V-rate 50- 99 Prolonged CO interval...CO >220, V-rate 50- 90 Probable left atrial enlargement...P >50mS, <-0.10mV V1 Left axis deviation...QRS axis (-30,-90)
[2024-07-26 10:35] LABS: PTT Activated 61.6 sec (23.6-32.8)
--- NOTE | 2024-07-26 11:39 | PGE_ITS ---
Date of Service Date of service: 07/26/24 Time of Service: 09:26 Assessment and Plan Assessment and plan (1) Non-ST elevation NE (NSTEMI): Status: Acute Assessment and plan: patient remains pain free and w/out dyspnea. See hand writtent note for details. continue heparin gtt, ASA; plan for transfer to [facility] cardiology, service of Dr. Ozzie Prater when bed becomes available. (2) Aneurysm of infrarenal abdominal aorta: Status: Acute Qualifiers: Presence of rupture: without rupture Qualified Code(s): I71.43 - Infrarenal abdominal aortic aneurysm, without rupture (3) Mobitz type I Wenckebach atrioventricular block: Status: Acute Assessment and plan: continue to hold metoprolol (4) First degree AV block: Status: Acute (5) Essential hypertension: Status: Chronic Assessment and plan: initiate low dose norvasc 2.5 mg daily Subjective Subjective Interval history since last seen: No further CP or dyspnea. See hand written progress note. [facility] hospital [facility] dept was in down time at the time I saw the patient. Objective Last Vital Signs Temp 36.4 C L 07/26/24 03:06 Pulse 68 07/26/24 10:01 Resp 20 07/26/24 10:01 BP 140/83 07/26/24 10:01 Pulse Ox 94 07/26/24 07:57 Laboratory Results - last 24 hr 07/25/24 07/25/24 07/25/24 11:20 13:31 17:00 PT 10.4 INR 1.0 APTT 27.3 Troponin I 310 H* 271 H* Troponin I High Sens 327 H* Triglycerides Total Cholesterol LDL Cholesterol, Calc HDL Cholesterol 07/25/24 07/26/24 07/26/24 19:45 03:24 08:12 PT INR APTT 51.1 H 67.9 H 61.6 H Troponin I Troponin I High Sens Triglycerides 114 Total Cholesterol 180 LDL Cholesterol, Calc 113 H HDL Cholesterol 45 Time Spent with Patient Time Spent with Patient: 25-34 minutes Time was spent: preparing to see the patient(eg.review tests), ordering medications,tests, procedures, referring, communicating with other health healthcare technician, indepentently interpreting results, counseling the patient and care coordination
--- NOTE | 2024-07-26 12:28 | DSE_ITS ---
Date of service: 07/26/24 Time of Service: 12:29 DS: Diagnosis Discharge Diagnosis (1) Non-ST elevation AL (NSTEMI): Status: Acute (2) Aneurysm of infrarenal abdominal aorta: Status: Acute (3) Mobitz type I Wenckebach atrioventricular block: Status: Acute (4) First degree AV block: Status: Acute (5) Essential hypertension: Status: Chronic Discharge Plan Disposition Patient Disposition: Transfer-Acute Inpatient Care Specific Acute Inpt Facility: [facility] Condition: Stable Discharge Details Reason For Visit: NSTEMI Admit Date/Time: 07/25/24 12:53 Admit Provider: Nilesh Melendrez Attending Provider: Nilesh Melendrez Primary Care Provider: Jaqui Baez Hospital Course Hospital Course: 83-year-old male with history of known coronary artery disease status post coronary bypass graft x 3 vessels 2008 presented with exertional chest pain this been ongoing for months now progressing to chest pain at rest associated with dyspnea. On presentation emergency department was found to have an NSTEMI with troponin levels of 388 ng/L with repeat levels of 350 and 327 and finally declining down to 271. Chest discomfort was relieved with nitroglycerin. Subsequent workup included CTA of the chest and abdomen. While he was found to have some emphysematous changes in his lungs he was not found to have any pulmonary with him. CTA of the abdomen however demonstrated a 6 cm nondissecting infrarenal abdominal aortic aneurysm. His EKG on admission showed sinus rhythm with second-degree type I AVB [place] Wenke Bach along with some anteroseptal ST-T wave changes consistent with ischemia. Subsequently his rhythm improved to a first-degree AV block. His metoprolol was withheld because of the AV conduction problems. [facility] [place] surgery were consulted by the ED provider from [facility] and they recommend the patient be admitted to [facility] as there was no bed available at [facility] and they recommend treatment of his NSTEMI with aspirin and heparin but no Plavix. Patient is remain free of any chest pain or dyspnea since admission. Patient is discharged in stable but serious condition to the services of Dr. Ozzie Prater, cardiology, [facility]. Home Meds and New Rx's Prescriptions: No Action cholecalciferol (vitamin D3) 125 mcg (5,000 unit) capsule 125 mcg PO DAILY PRN Rx Instructions: 07/2020 Chiropractor recommended for the winter. mk calcium carbonate [Tums Ultra] 400 mg calcium (1,000 mg) tablet,chewable 400 mg PO DAILY PRN polyethylene glycol 3350 [Miralax] 17 gram/dose powder 17 g PO .qMWF or PRN olopatadine [Pataday Once Daily Relief] 0.2 % drops 1 drp ophthalmic (eye) DAILY Rx Instructions: each eye tamsulosin [Flomax] 0.4 mg capsule 0.4 mg PO QHS Qty: 90 1RF Rx Instructions: Trial for BPH (vs SawPalmetto), start after 1 week w/o SP qHS glucosamine-chondroitin 900 mg tablet 900 mg PO DAILY omega-3 fatty acids-fish oil 300-1,000 mg capsule 3 cap PO DAILY methocarbamol 500 mg tablet 500 mg PO BID PRN Qty: 20 0RF Rx Instructions: 1 BID prn back pain. Not to exceed 20 tabs in 30 days. acetaminophen 325 MG tablet 325 mg PO PRN PRN aspirin [Aspirin Low-Strength] 81 MG tablet,chewable 81 mg PO DAILY metoprolol succinate 25 mg tablet extended release 24 hr 25 mg PO DAILY Qty: 90 3RF saw palmetto 450 mg capsule 450 mg PO DAILY Rx Instructions: 2 in AM Discharge Instructions Instructions: Heart attack, Abdominal aortic aneurysm Activity:: Activity as Tolerated Equipment/Supplies:: No Equipment Needed Diet:: Low Sodium DS: Summary Time Spent with Patient providing and/or coordinating discharge services: Greater than 30 minutes Specific discharge activities: Interview/exam of patient, educating patient and/or family about need for transfer and alternative treatment options, coordination of transfer w/ receiving facility and discussion of case w/ accepting provider(s), completion of transfer orders and discharge summary Status at Discharge Functional status at discharge: independent ambulation Overall status at discharge: patient is progressing back to baseline Mental Status: mental status grossly normal Speech and Movement: speech and movement normal Mood: congruent mood Affect: normal affect Quality:SDOH Health Related Social Needs: No Data to Display Exam Narrative Exam Narrative: Mr. Scott sitting up in bed he is alert and orient x 3 no acute distress denies any pain or dyspnea Lungs are clear to auscultation Heart is regular rate and rhythm Abdomen soft nontender nondistended he has audible bruit over the epigastrium he has palpable pulsatile aorta that is nontender Extremities without peripheral edema or cyanosis he has intact pedal pulses Psych Mental Status: mental status grossly normal Speech and Movement: speech and movement normal Mood: congruent mood Affect: normal affect DS: Data Vitals/I&O Vitals and I&O: Vital Signs Temperature 36.4 C L 07/26/24 03:06 Temperature Source Temporal Artery Scan 07/25/24 17:48 Pulse 68 07/26/24 10:01 Pulse 70 07/26/24 10:01 Respiratory Rate 20 07/26/24 10:01 Respiratory Effort Normal, Non-Labored 07/25/24 08:47 Respiratory Depth Normal 07/25/24 08:47 Respiratory Pattern Normal 07/25/24 08:47 Blood Pressure 140/83 07/26/24 10:01 Blood Pressure Mean 101 07/26/24 10:01 Blood Pressure Position Sitting 07/25/24 08:27 Pulse Oximetry 94 07/26/24 07:57 Oxygen Delivery Method Room Air 07/25/24 17:48 Oxygen Flow Rate 0 07/25/24 17:48 Pain Level 0 07/25/24 17:48 Intake & Output 07/25/24 07/26/24 07/26/24 23:59 11:59 23:59 Intake Total 89.716 / 89.716 433.783 / 433.783 Output Total 350 / 350 600 / 600 Balance -260.284 / -260.284 -166.217 / -166.217 Weight 80 kg 79.9 kg Intake: IV 89.716 / 89.716 133.783 / 133.783 Oral 300 / 300 Output: Urine 350 / 350 600 / 600 Other: Urine Color Yellow Yellow Urine Appearance Clear Clear Urine Odor Normal Voiding Methods Urinal Data Completed and Pending Labs on day of discharge: Labs from last 24 hours 07/26/24 07/26/24 07/25/24 08:12 03:24 19:45 PT INR APTT 61.6 H 67.9 H 51.1 H Troponin I Troponin I High Sens Triglycerides 114 Total Cholesterol 180 LDL Cholesterol, Calc 113 H HDL Cholesterol 45 07/25/24 07/25/24 17:00 13:31 PT 10.4 INR 1.0 APTT 27.3 Troponin I 271 H* 310 H* Troponin I High Sens Pending Triglycerides Total Cholesterol LDL Cholesterol, Calc HDL Cholesterol PFSH All Active Problems First degree AV block (Acute) Mobitz type I Wenckebach atrioventricular block (Acute) Aneurysm of infrarenal abdominal aorta (Acute) Non-ST elevation AL (NSTEMI) (Acute) Lesion of skin of nose (Acute) Bladder pain (Acute) acute, w/ 4am urination (none afterwards).. resolves with urination. Mild hesitency. Hx BPH? (SawPalmetto x years..) Wears hearing aid in both ears (Acute) Impaired fasting glucose (Acute) Sensorineural hearing loss of combined sites, bilateral (Acute 10/21/15) Other and unspecified hyperlipidemia (Acute 02/21/13) intolerant statins Low back pain (Chronic 02/21/13) Gastroesophageal reflux disease with esophagitis (Acute 12/21/11) Essential hypertension (Chronic 08/08/13) Chronic rhinitis (Acute 02/21/13) 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; 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 Benign prostate hyperplasia (Acute 06/06/14) Hx SawPalmetto x years.. Unclear if associated with bladder pain/bladder stretch, trial FLOMAX + UROL referral. 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 Chronic serous otitis media, right ear Eustachian tube dysfunction right 05/28/21 resolved [facility] Conductive hearing loss, external ear Recurrent acute serous otitis media of right ear 03/10/21 Dr Kent 05/28/21 Resolved Bilateral knee pain Sciatica (10/27/12) LEFT: RECURRENT Other pulmonary embolism with acute cor pulmonale (12/21/11) 03/2009 Impairment of auditory discrimination of both ears (08/21/15) Asymmetrical sensorineural hearing loss of both ears (08/21/15) Erectile dysfunction (12/21/11) Chronic prostatitis (12/21/11) Surgical History cataract surgery OD (04/25/17) Coronary Artery Bypass Gaft (CABG) (08/15/15) Family History Father , aneurysm at age 57. Essential hypertension Mother No problems noted. Sister No problems noted. Brother No problems noted. Social History Smoking/Tobacco Use Status: Former Tobacco Use Smoking risk assessment performed?: Yes Alcohol Intake: never Drug use: Never Substance use type: does not use Caregiver/Support person: No Housing: house Number of Children: 3 Communication Needs: Hard of Hearing and Corrective Lenses current occupation: retired Current gender identity: male What is your relationship status?: How often do you talk on the phone with friends or family?: three or more times per week How often do you get together with friends or relatives?: three or more times per week Panel score (0-1 are the most socially isolated patients): 1 What type of physical activity do you participate in: walking and other Details: stretching exercises q am x 1 hour Duration: 30-45 minutes/day Frequency: daily Seatbelt use: always Drive intox or ride w/intox corrugated fastener driver: No Working smoke detector in home: Yes Carbon monox detector in home: Yes Do you feel safe at home: Yes Do you feel safe in your relationship?: Yes Time Spent with Patient Time Spent with Patient: <45 minutes Time was spent: preparing to see the patient(eg.review tests), referring, communicating with other health day care worker, indepentently interpreting results, counseling the patient and care coordination
--- NOTE | 2024-07-26 14:11 | W.POCUS ---
Pocus Exam FAST Exam DATE OF EXAM: 07/26/24 TIME OF EXAM: 13:55 PROVIDER THAT PERFORMED THE STUDY: Nilesh Melendrez REASON FOR EXAM: Abdominal pain VISUALIZED STRUCTURES: Other structure: abdominal aorta PERTINENT FINDINGS/IMPRESSION: other impression: infrarenal abdominal aortic aneursym measuring 6.5 cm x 5.34 cm w/ contained atheroma Limited Transthoracic Exam: Exam complete Limited Abdominal Exam: Exam complete Limited Retroperitoneal Exam: Exam complete
--- NOTE | 2024-07-26 14:19 | W.EVENT ---
Date of service: 07/26/24 Time of Service: 13:55 Event Note: CTSP patient d/t c/o of feeling flushed and lightheaded, no CP but some lower abdominal pains feeling like he needs to have BM. No back pain. BP stable 146/87 declining to 135/82. No excruciating abdominal pains but more feeling of fullness in the pelvic area, feels like he needs a BM. Feeling of flushness has passed. Abdominal exam: pulsatile aorta w/ bruit as noted on morning exam today, no guarding or rebound tenderness. discomfort is in the right and left lower quadrants in the pelvic/suprainguinal areas, none in the epigastrium. POCUS exam done to look for acute dissection. He has 6 to 6.5 cm x 5.4 cm infrarenal AAA and has contained atheroma but I did not see any acute dissection or suggestion of false lumen. We will closely watch him and treat his obstipation. if pain worsens then proceed w/ stat CTA chest/abdomen/pelvis and refer to [facility] for acute transfer. Family updated (son presented at end of my exam). Time Spent with Patient Time spent in critical care(minutes): 30 minutes Time Spent Included: Performing procedures not included in c.c time, Coordination of care, Time at immediate bedside, Discussing critically ill care with other medical staff and Discussing Hx and/or treatment with family
[2024-07-26] MEDS: Magnesium Citrate 300 ML BTL 150 ML PO (14:42)
--- NOTE | 2024-07-26 16:40 | CHAPLAIN ---
Angel was up in the chair when I visited. He had a friend visiting with him. Angel said he is waiting to go [place] [facility] but a bed hasn't opened up yet. He has a son visiting with him, who plans to leave on a five-week vacation soon. Another son may be able to come stay with him. Right now his son is taking care of Angel's dog. Angel said he hasn't been away from the dog since he got her six years ago, so the dog is very much missing him, and he misses the dog. Angel has been a long time member of the [employer]now the [employer] I left when the nurses came to do their change of shift huddle, but will visit again.
[2024-07-26] MEDS: Tamsulosin 0.4 MG CAPCR PO (21:22)
[2024-07-26] MEDS: Acetaminophen 325 MG TAB PO (21:23)
[2024-07-26] MEDS: Calcium Carbonate *TUMS* 500 MG CHEW PO (21:23)
[2024-07-27] VITALS (11 sets, daily range): BP systolic 114–152; BP diastolic 70–132; PULSE 63–91; RESP 16–24; TEMP 36.7; O2SAT 93
[2024-07-27] MEDS: Heparin in 0.45% NaCl 25,000 UNIT/250 ML BAG 11.5 UNIT IV (01:42)
[2024-07-27 06:28] LABS: PTT Activated 54.7 sec (23.6-32.8)
[2024-07-27] MEDS: Aspirin 81 MG CHEW PO (08:05)
[2024-07-27] MEDS: amLODIPine 2.5 MG TAB PO (08:05)
[2024-07-27] MEDS: Omega-3 Fatty Acids 1000 MG CAP PO (08:05)
[2024-07-27] MEDS: Normal Saline Flush 10 ML SYR IVP (08:08)
--- NOTE | 2024-07-27 08:47 | W.PM.PROGNOT ---
Date of Service Date of service: 07/27/24 Time of Service: 08:47 Assessment and Plan Assessment and plan (1) Non-ST elevation [place] (NSTEMI): Status: Acute Assessment and plan: patient remains pain free and w/out dyspnea. Continue aspirin and heparin drip, plan for transfer to [facility] when a bed becomes available. (2) Aneurysm of infrarenal abdominal aorta: Status: Acute Assessment and plan: 6 cm aneurysm with evidence of atheroma on ultrasound. Currently asymptomatic Qualifiers: Presence of rupture: without rupture Qualified Code(s): I71.43 - Infrarenal abdominal aortic aneurysm, without rupture (3) Mobitz type I Wenckebach atrioventricular block: Status: Acute Assessment and plan: continue to hold metoprolol (4) First degree AV block: Status: Acute Assessment and plan: Continue to hold his metoprolol (5) Essential hypertension: Status: Chronic Assessment and plan: Tolerating low-dose amlodipine 2.5 mg daily with good blood pressure response Subjective Subjective Interval history since last seen: Angel had a good bowel movement last night and again this morning and has had no further abdominal discomfort. Denies any chest pain or pressure or palpitations or dizziness or dyspnea. Exam Narrative Exam Narrative: Patient is alert and oriented sitting up in his chair finishing his breakfast Lungs are clear to auscultation Heart is regular rate and rhythm (review of his telemetry shows he is in sinus rhythm with a first-degree AV block with intermittent periods of Wenke Bach second-degree AV block. Abdomen soft and nontender nondistended Extremities without edema Objective Last Vital Signs Temp 36.7 C 07/27/24 08:39 Pulse 87 07/27/24 08:04 Resp 23 07/27/24 08:04 BP 124/83 07/27/24 08:04 Pulse Ox 93 07/27/24 08:04 Laboratory Results - last 24 hr 07/26/24 07/27/24 08:12 05:45 APTT 61.6 H 54.7 H Time Spent with Patient Time Spent with Patient: 25-34 minutes Time was spent: preparing to see the patient(eg.review tests), referring, communicating with other health client care specialist, indepentently interpreting results, counseling the patient and care coordination
--- NOTE | 2024-07-27 10:52 | PDOC.CMPRO ---
Date of service: 07/27/24 Time of Service: 10:52 Care Management Progress Note Discharge Potential Discharge Needs: [place] [facility] Anticipated Barriers to Discharge: Bed availability Patient/Family Education Needs: Review discharge instructions, discuss Ask Me Three Transportation: EMS Plan: Angel has been accepted in [place] [facility] and is waiting for a bed. He will transport via EMS and follow up with facility providers. CM will follow and continue to support discharge needs. SDOH(Care Management) Screening Will the Patient Participate in the Screening?: Yes Do you worry about having a steady place to live?: no In the past 12 months, have you had to go without electric, gas, oil or water in your home?: no Have you or anyone in your house had to go without enough food to eat?: no Has lack of transportation kept you from medical appointments or from doing things needed for daily living?: no Has anyone in your support network made you feel unsafe for any reason?: no
--- NOTE | 2024-07-27 12:09 | CMDISCH_ITS ---
Date of service: 07/27/24 Time of Service: 12:09 LACE Index Scoring Tool Questions: Length of Stay (in days): 2 Was the patient admitted via the E.D.?: Yes Comorbidities: Previous M.I. E.D. Visits: 1 Answers: Total Score: 7 Risk of Readmission: Low Risk Care Management Discharge Plan Reason for Hospitalization: NSTEMI Discharge Plan: Angel was admitted with an NSTEMI. He has been accepted for transfer to [facility] [place] by Dr. Ozzie Prater in Cardiology. A bed became available today and he will transport this afternoon via EMS coordinated by nursing sign shop supervisor. Patient/Family Education Needs: expectations, limitations, follow up plan. Services Needed at Discharge: Transportation SDOH Health Related Social Needs: No Data to Display
--- NOTE | 2024-07-27 12:19 | PHA.REVIEW2 ---
Pharmacy Admission Review Admission Clinical Review Admission Pharmacy Review: First degree AV block (Acute) Mobitz type I Wenckebach atrioventricular block (Acute) Aneurysm of infrarenal abdominal aorta (Acute) Non-ST elevation SD (NSTEMI) (Acute) doxycycline Allergy (Unknown, Verified 07/12/24 13:36) rash clindamycin Adverse Reaction (Severe, Verified 07/12/24 13:36) Diarrhea cyclobenzaprine Adverse Reaction (Intermediate, Verified 07/12/24 13:36) difficulty urinating montelukast (From Singulair) Adverse Reaction (Intermediate, Verified 07/12/24 13:36) terrible nightmares per pt. ezetimibe Adverse Reaction (Mild, Verified 07/12/24 13:36) unknown Ffasloa-RYV-QwJ Reductase Inhibitor (Zgdzkvi-Zne-Smz Reductase Inhibitor) Adverse Reaction (Unknown, Verified 07/12/24 13:36) muscle weakness Resuscitation Status Full Code Height 6 ft Weight 78.9 kg Pharmacy Admission Review Renal Dosing Renal Dosing: BUN 19 mg/dL (7-18) H 07/25/24 08:34 Creatinine 0.8 mg/dL (0.70-1.30) 07/25/24 08:34 Medications needing adjustments: Reviewed (crcl = 60, no adjustments needed) Anticoagulation Anticoagulation: Hgb 14.1 g/dL (13.5-17.5) 07/25/24 08:34 Hct 43.7 % (40.0-50.0) 07/25/24 08:34 Plt Count 206 10^3/uL (130-400) 07/25/24 08:34 INR 1.0 (0.9-1.1) 07/25/24 13:31 Creatinine 0.8 mg/dL (0.70-1.30) 07/25/24 08:34 DVT Prophylaxis: Reviewed Medications: Heparin Therapeutic Anticoagulation: Reviewed Medications: Heparin (heparin drip, running @ 1150 units/hr (indication: NSTEMI), PTT today @ 0633 = 54.7) Opiate Usage Evaluate Pain Scale/Pains Meds: N/A (not on opiates) Relevant Labs Relevant Labs: Sodium 139 mmol/L (136-145) 07/25/24 08:34 Potassium 3.8 mmol/L (3.5-5.1) 07/25/24 08:34 Chloride 103 mmol/L (98-107) 07/25/24 08:34 Electrolytes, C-Reactive P, ESR: Reviewed (troponin 388 -> 271) DM Control DM Control: N/A (not diabetic. a1c = 5.3% 10/13/23) Cardiac Review Cardiac Review: Troponin I 271 ng/L (<or=76) H* 07/25/24 17:00 NT-Pro-B Natriuret Pep 949 pg/mL (<300) H 07/25/24 08:34 BP, HR, EF%: Reviewed List meds needing interventions: amlodipine 2.5 mg daily started today. home Toprol held (AV block) QTc Review QTc: Reviewed (QTc = 416 07/25/24) IV to PO Switch IV Medications: Reviewed (IV heparin necessary for NSTEMI tx, other meds are PO) Home Meds Home Med List reviewed: Reviewed Relevent Home Meds Not ordered & why?: toprol - AV block
[2024-07-27] MEDS: Acetaminophen 325 MG TAB PO (15:12)
--- NOTE | 2024-07-27 16:39 | CHAPLAIN ---
I visited with Angel not long before he was transferred to [facility] [place]. His son and a friend were with him. His son told Angel that his dog was doing better and seemed to be okay although still missing Agnel. The dog has been a concern for Angel. He is going to [facility] for cardiac care. He said 15 years ago he had open heart surgery. After waiting for a couple of days for a bed to open up, Angel said he is ready to begin the next step in this process.
== END 2024-07-27 15:45 | disposition short-term general hospital (02) | DRG 282 ==
LOC: ER 15:31 → ICU 16:24
PROVIDERS: Admitting Provider Internal Medicine; Emergency Provider Physician Assistant; PCP Nurse Practitioner Adult Health; Visit Provider Internal Medicine
DX: I21.4 Non-ST elevation (NSTEMI) myocardial infarction (principal); I71.43 Infrarenal abdominal aortic aneurysm, without rupture; I44.1 Atrioventricular block, second degree; I44.0 Atrioventricular block, first degree; I10 Essential (primary) hypertension; Z95.1 Presence of aortocoronary bypass graft; I25.10 Atherosclerotic heart disease of native coronary artery without angina pectoris; R79.1 Abnormal coagulation profile; R73.01 Impaired fasting glucose; H90.3 Sensorineural hearing loss, bilateral; G89.29 Other chronic pain; M54.50 Low back pain, unspecified; N40.0 Benign prostatic hyperplasia without lower urinary tract symptoms; Z86.711 Personal history of pulmonary embolism; K59.00 Constipation, unspecified
CPT/HCPCS: 00123; 36415; 71275; 76604; 76705; 76857; 80053; 80061; 83690; 93005; 96365; 96366; 99285; 74174; 83880; 84484; 85025; 85379; 85610; 85730; 93010; 99231; 99291; J1644; J3490

== ENCOUNTER 2024-08-24 02:09 | Outpatient (CLI) | payer MEDICARE, SELFPAY ==
[2024-08-24 13:16] LABS: HCT 43.7 % (40.0-50.0); MCH 30.6 pg (27.0-33.0); MCV 96 fL (80-95); MPV 8.7 fL (8.0-11.0); Platelet Count 212 10^3/uL (130-400); RBC 4.57 10^6/uL (4.36-5.78); RDW 13.2 % (11.8-14.1); RDW-SD 46.7 fL; WBC 7.47 10^3/uL (4.4-10.8)
[2024-08-24 13:56] LABS: ALT 36 U/L (16-63); AST 29 U/L (15-37); Albumin 3.6 g/dL (3.4-5.0); Alkaline Phosphatase 98 U/L (46-116); Anion Gap 5.1 mmol/L (3-11); BUN 24 mg/dL (7-18); Bilirubin, Total 0.48 mg/dL (0.2-1.0); CO2 32.9 mmol/L (21.0-32.0); CREATININE 0.9 mg/dL (0.70-1.30); Calcium 9.2 mg/dL (8.5-10.1); Chloride 104 mmol/L (98-107); Creatine Kinase 71 U/L (39-308); Glucose 111 mg/dL (74-106); Magnesium 2.3 mg/dL (1.8-2.4); PHOSPHORUS 3.8 mg/dL (2.6-4.7); Potassium 4.8 mmol/L (3.5-5.1); Sodium 142 mmol/L (136-145); Total Protein 7.5 g/dL (6.4-8.2)
== END 2024-08-24 02:10 | disposition home or self-care (01) ==
LOC: LBO 02:09
PROVIDERS: PCP Nurse Practitioner Adult Health; Referring Provider Nurse Practitioner Adult Health; Visit Provider Nurse Practitioner Adult Health
DX: I21.4 Non-ST elevation (NSTEMI) myocardial infarction (principal); I25.9 Chronic ischemic heart disease, unspecified
CPT/HCPCS: 36415; 80053; 82550; 85027; 83735; 84100

== ENCOUNTER 2024-10-09 11:31 | Outpatient (CLI) | payer MEDICARE, SELFPAY ==
--- NOTE | 2024-10-09 11:30 | RT.EKG_ITS ---
APPROVED REPORT Exam: Resting ECG Reason for Exam: AAA W/O RUPTURE Patient Location: O HR:65 bpm ECG Measurements Heart Rate 65 AXIS ND [id number] P 64 QRSd 96 QRS -48 QT 415 T 60 QTc 432 Conclusion Sinus rhythm...normal P axis, V-rate 50- 99 Probable left atrial enlargement...P >50mS, <-0.10mV V1 Left anterior fascicular block...axis(240,-40), init forces inf
== END 2024-10-09 11:32 | disposition home or self-care (01) ==
PROVIDERS: PCP Nurse Practitioner Adult Health; Visit Provider Surgery Vascular Surgery
DX: I71.11 Aneurysm of the ascending aorta, ruptured (principal)
CPT/HCPCS: 36415; 80048; 85027; 84134; 93005; 93010

== ENCOUNTER 2024-10-09 15:01 | Outpatient (CLI) | payer MEDICARE, SELFPAY ==
[2024-10-09 12:20] LABS: Anion Gap 6.8 mmol/L (3-11); BUN 25 mg/dL (7-18); CO2 30.2 mmol/L (21.0-32.0); CREATININE 0.8 mg/dL (0.70-1.30); Chloride 106 mmol/L (98-107); Estimated GFR 86.73 (mL/min/1.73m2); Glucose 101 mg/dL (74-106); Potassium 4.6 mmol/L (3.5-5.1); Sodium 143 mmol/L (136-145)
[2024-10-09 12:21] LABS: HCT 44.1 % (40.0-50.0); HGB 13.8 g/dL (13.5-17.5); MCH 30.1 pg (27.0-33.0); MCHC 31.3 % (32.0-36.0); MCV 96 fL (80-95); MPV 9.4 fL (8.0-11.0); Platelet Count 207 10^3/uL (130-400); RBC 4.58 10^6/uL (4.36-5.78); RDW 13.2 % (11.8-14.1); RDW-SD 46.7 fL; WBC 7.81 10^3/uL (4.4-10.8)
[2024-10-10 09:14] LABS: Prealbumin 24 mg/dL (20-40)
== END 2024-10-09 15:02 | disposition home or self-care (01) ==
LOC: LBO 15:01
PROVIDERS: PCP Nurse Practitioner Adult Health; Visit Provider Surgery Vascular Surgery
DX: Z01.818 Encounter for other preprocedural examination (principal); I71.42 Juxtarenal abdominal aortic aneurysm, without rupture
CPT/HCPCS: 36415; 80048; 85027; 84134

== ENCOUNTER 2024-10-17 17:19 | Emergency (ER) | payer MEDICARE, SELFPAY ==
[2024-10-17] VITALS (33 sets, daily range): BP systolic 126–175; BP diastolic 73–119; PULSE 55–86; RESP 14–28; TEMP 36.6; O2SAT 81–97
--- NOTE | 2024-10-17 17:45 | RT.EKG_ITS ---
APPROVED REPORT Exam: Resting ECG Reason for Exam: VISION CHANGE Patient Location: E HR:66 bpm ECG Measurements Heart Rate 66 AXIS OK 364 P 9 QRSd 101 QRS -2 QT 407 T 57 QTc 426 Conclusion Sinus rhythm 66 nornal axis 1 degree block no stemi
--- NOTE | 2024-10-17 17:45 | DI.CT_ITS ---
Exam(s) CT BRAIN NECK CTA EXAM: CT BRAIN NECK CTA CLINICAL HISTORY: VISION CHANGES, SEEING SHAPES AND NUMBERS. TECHNIQUE: Imaging Protocol: Axial CT angiography was performed with multi-slice acquisition and mu lti-planar and MIP reconstructions. CONTRAST MATERIAL: Intravenous: Omnipaque 350 Contrast volume:70 ml COMPARISON: CT CT THORAX ABD/PEL CTA from 07/25/2024 FINDINGS: CT Head W/O and W contrast: Ventricles and Extra axial spaces: Normal in size and morphology for the patient's age. Hemorrhage: None. Cerebral parenchyma: No evidence of acute infarct or mass. A patchy area of decreased attenuation in the white matter consistent with microvascular disease. Midline shift: None. Brainstem/Cerebellum: No acute findings.. Calvarium: Normal. Visualized Paranasal sinuses/Mastoids: Small amount of fluid in the inferior mastoid air cells. No b joleen destruction. Opacification of a few ethmoid sinuses. Soft Tissues: Unremarkable. Enhancement: Normal. CTA Brain W: Internal Carotid Arteries: Petrous: Normal. Cavernous: Normal. Cerebral: Normal. Middle Cerebral Arteries: Right: No aneurysm, occlusion or significant stenosis. Left: No aneurysm, occlusion or significant stenosis. Anterior Cerebral Arteries: Right: No aneurysm, occlusion or significant stenosis. Left: No aneurysm, occlusion or significant stenosis. Posterior cerebral Arteries: Right: No aneurysm, occlusion or significant stenosis. Left: No aneurysm, occlusion or significant stenosis. Vertebral Arteries: Right: No aneurysm, occlusion or significant stenosis. Left: No aneurysm, occlusion or significant stenosis. Basilar Artery: No aneurysm, occlusion or significant stenosis. CTA Neck W: Common Carotid: Right: No dissection, occlusion or significant stenosis. Left: No dissection, occlusion or significant stenosis. External Carotid: Right: No dissection, occlusion or significant stenosis. Left: No dissection, occlusion or significant stenosis. Internal Carotid: Right: No dissection, occlusion or significant stenosis. Left: No dissection, occlusion or significant stenosis. Vertebral Artery: Right: Hypoplastic. Visualized to the level of the inferior aspect of C2 and reconstituted at the le beau of the C1 ring. Left: Focal area heavy calcification at the level of the skull base causing moderate stenosis. Lung Apices: No acute findings. Paraseptal emphysematous changes. bronchiectasis noted. No muco us plugging. Bones: No acute abnormality. Degenerative changes. Soft Tissues: Normal. IMPRESSION: 1. CTA brain: Normal CTA examination of the [place]. 2. Head CT: Unremarkable CT Head. 3. 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 Reconstituted at the level of the C1 ring. Moderate stenosis in the distal left v ertebral artery at the level of the skull base. RADIATION DOSE DELIVERED: 2,234.53mGy.cm Total DLP DATA REPOSITORY: All CT scans at this facility are submitted to the National Radiology Data Registry (NRDR) Dose Index Registry (DIR) with the [employer] (ACR). RADIATION OPTIMIZATION: All CT scans at this facility use at least one of these dose optimization te chniques: automated exposure control; mA and/or kV adjustment per patient size (includes targeted exa ms where dose is matched to clinical indication); or iterative reconstruction.
[2024-10-17 18:03] LABS: Abs Immature Grans 0.02 10^3/uL (0.0-0.06); Absolute Basophil Count 0.07 10^3/uL (0.0-0.2); Absolute Eosinophil Count 0.21 10^3/uL (0.0-0.7); Absolute Lymphocyte Count 1.66 10^3/uL (1.2-3.4); Absolute Monocyte Count 0.78 10^3/uL (0.1-0.8); Basophils % 0.9 %; Eosinophils % 2.7 %; HCT 43.4 % (40.0-50.0); HGB 13.8 g/dL (13.5-17.5); Immature Grans % 0.3 %; Lymphocytes % 21.4 %; MCH 30.1 pg (27.0-33.0); MCHC 31.8 % (32.0-36.0); MCV 95 fL (80-95); MPV 9.3 fL (8.0-11.0); Monocytes % 10.1 %; Neutrophils % 64.6 %; Platelet Count 211 10^3/uL (130-400); RBC 4.58 10^6/uL (4.36-5.78); RDW 13.2 % (11.8-14.1); RDW-SD 45.9 fL; WBC 7.74 10^3/uL (4.4-10.8)
[2024-10-17 18:20] LABS: ALT 31 U/L (16-63); AST 27 U/L (15-37); Albumin 3.8 g/dL (3.4-5.0); Alkaline Phosphatase 101 U/L (46-116); Anion Gap 7.7 mmol/L (3-11); BUN 26 mg/dL (7-18); CO2 30.3 mmol/L (21.0-32.0); CREATININE 0.8 mg/dL (0.70-1.30); Calcium 8.9 mg/dL (8.5-10.1); Chloride 103 mmol/L (98-107); Estimated GFR 86.73 (mL/min/1.73m2); Glucose 101 mg/dL (74-106); Potassium 4.9 mmol/L (3.5-5.1); Sodium 141 mmol/L (136-145); Total Protein 7.8 g/dL (6.4-8.2)
[2024-10-17] MEDS: Normal Saline - Diluent 50 ML VIAL IJ (19:00)
[2024-10-17] MEDS: Omnipaque 350 MG/ML 100 ML BTL IJ (19:01)
--- NOTE | 2024-10-17 20:21 | DI.VRAD_ITS ---
PROCEDURE INFORMATION: Exam: CTA Head Without And With Contrast, Arteriography Exam date and time: 10/17/2024 6:39 PM Age: 83 years old Clinical indication: Weakness and other: Vision changes, seeing shapes and numbers TECHNIQUE: Imaging protocol: Computed tomographic angiography of the head without and with contrast. Exam focused on the arteries. 3D rendering (Not supervised by radiologist): MIP and/or 3D reconstructed images were created by the technologist. Contrast material: 350; Contrast volume: 70 ml; Contrast route: INTRAVENOUS (IV); COMPARISON: No relevant prior studies available. FINDINGS: ANTERIOR CIRCULATION: Right internal carotid artery: Intracranial segment is patent with no significant stenosis or occlusion. No aneurysm. Right middle cerebral artery: No occlusion or significant stenosis. No aneurysm. Right anterior cerebral artery: No occlusion or significant stenosis. No aneurysm. Left internal carotid artery: Intracranial segment is patent with no significant stenosis. No aneurysm. Left middle cerebral artery: No occlusion or significant stenosis. No aneurysm. Left anterior cerebral artery: No occlusion or significant stenosis. No aneurysm. POSTERIOR CIRCULATION: Right vertebral artery: No occlusion or significant stenosis. No aneurysm. Left vertebral artery: No occlusion or significant stenosis. No aneurysm. Basilar artery: No occlusion or significant stenosis. No aneurysm. Right posterior cerebral artery: No occlusion or significant stenosis. No aneurysm. Left posterior cerebral artery: No occlusion or significant stenosis. No aneurysm. HEAD: Brain: Normal. No hemorrhage. Unremarkable white matter. No mass effect. Cerebral ventricles: Normal. No ventriculomegaly. Bones: Unremarkable. No acute fracture. Paranasal sinuses: Visualized sinuses are normal. No fluid levels. Mastoid air cells: A small amount of fluid is noted in the bilateral mastoid air cells. Soft tissues: Unremarkable. IMPRESSION: 1. No occlusion or significant stenosis. 2. Bilateral mastoid air cell effusions. PROCEDURE INFORMATION: Exam: CTA Neck Without And With Contrast Exam date and time: 10/17/2024 6:39 PM Age: 83 years old Clinical indication: Weakness and other: Vision changes, seeing shapes and numbers TECHNIQUE: Imaging protocol: Computed tomographic angiography of the neck without and with contrast. Exam focused on the cervical segments of the vasculature. 3D rendering (Not supervised by radiologist): MIP and/or 3D reconstructed images were created by the technologist. Contrast material: 350; Contrast volume: 70 ml; Contrast route: INTRAVENOUS (IV); COMPARISON: CT THORAX ABD/PEL CTA 07/25/2024 10:44 AM FINDINGS: Right common carotid artery: No stenosis. No dissection or occlusion. Right internal carotid artery: No stenosis of the extracranial segment. No dissection or occlusion. Right external carotid artery: No occlusion or stenosis of the origin. Left common carotid artery: No stenosis. No dissection or occlusion. Left internal carotid artery: No stenosis of the extracranial segment. No dissection or occlusion. Left external carotid artery: No occlusion or stenosis of the origin. 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 There is reconstitution prior to the craniocervical junction. Left vertebral artery: No stenosis. No dissection or occlusion. Soft tissues: Normal. No significant soft tissue swelling. Bones/joints: No acute fracture. Lungs: Cystic bronchiectasis noted in the partially visualized lungs also with paraseptal emphysema. IMPRESSION: 1. 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 This finding may be chronic versus acute and therefore recommend comparison with prior imaging and correlation with clinical symptoms. 2. Cystic bronchiectasis and paraseptal emphysema seen in the partially visualized lung khan. REFERENCES: NASCET CRITERIA. The degree of stenosis in the cervical segment of the internal carotid artery is based on NASCET criteria. Normal is no stenosis. Mild is less than 50% stenosis. Moderate is 50-69% stenosis. Severe is 70% to 99% stenosis. Total occlusion is no detectable patent lumen. THIS REPORT CONTAINS FINDINGS THAT MAY BE CRITICAL TO PATIENT CARE. The findings were verbally communicated via telephone conference with LEENA CORDON at 8:11 PM EST on 10/17/2024. The findings were acknowledged and understood. Dictated and Authenticated by: April Smith MD. Ordering:[facility] Cisco Koehler MD
[2024-10-17 20:29] LABS: Bilirubin Negative (Negative); Blood Negative (Negative); Clarity Clear (Clear); Glucose Negative (Negative); Ketones Negative (Negative); Leukocyte Esterase Negative (Negative); Nitrite Negative (Negative); Urobilinogen 0.2 mg/dL (Up to 0.2)
--- NOTE | 2024-10-17 23:22 | ED.GENADUL_ITS ---
Discharge Plan Disposition Patient Disposition: Home Discharge Details Clinical Impression: Catalina Bonnet syndrome, Visual changes Primary Care Provider: Jaqui Baez ED Provider: Chilango Peck Home Meds and New Rx's Prescriptions: No Action cholecalciferol (vitamin D3) 125 mcg (5,000 unit) capsule 125 mcg PO DAILY PRN Rx Instructions: 07/2020 Chiropractor recommended for the winter. mk calcium carbonate [Tums Ultra] 400 mg calcium (1,000 mg) tablet,chewable 400 mg PO DAILY PRN polyethylene glycol 3350 [Miralax] 17 gram/dose powder 17 g PO .qMWF or PRN olopatadine [Pataday Once Daily Relief] 0.2 % drops 1 drp ophthalmic (eye) DAILY Rx Instructions: each eye tamsulosin [Flomax] 0.4 mg capsule 0.4 mg PO QHS Qty: 90 1RF Rx Instructions: Trial for BPH (vs SawPalmetto), start after 1 week w/o SP qHS PreserVision AREDS-2 250-90-40-1 mg capsule 1 tab PO BID sertraline 25 mg tablet 25 mg PO DAILY Qty: 30 1RF Rx Instructions: Start with 1/2 tab daily for anxiety x6 days, then increase to 1 tab daily. 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 There are some medications that can be given if symptoms become particularly bothersome HPI General Date/Time Provider Initiated Documentation: 10/17/24 17:31 . Limitations to Documentation: no limitations . Information obtained by: patient and family . 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 The patient reports starting this morning he started seeing things in his vision. He reports he is seeing elder and Tylenol fall and that the wall appears to be break. He states he is seeing shapes with numbers inside of him. He states that this is very different from his normal macular degeneration floaters. Which she describes that he has for specific floaters most of them are more squiggly lines located in the center of his vision and do not have color. The vision changes that he is experiencing today seem to be in all quadrants of his visual khan and move around. He cannot support specifically states that he only sees him in his right eye. His left eye he has had no vision in many years. He was evaluated by his PCP and sent here for further evaluation. Related Data Home Medications ?Medication ?Instructions ?Recorded ?Confirmed acetaminophen 325 mg tablet 325 mg PO PRN PRN 02/15/13 10/17/24 aspirin 81 mg chewable tablet 81 mg PO DAILY 02/15/13 10/17/24 (Aspirin Low-Strength) omega-3 fatty acids-fish oil 300 3 cap PO DAILY 09/05/19 10/17/24 mg-1,000 mg capsule cholecalciferol (vitamin D3) 125 125 mcg PO DAILY PRN 09/02/20 10/17/24 mcg (5,000 unit) capsule calcium carbonate (Tums Ultra) 400 mg PO DAILY PRN 10/14/21 10/17/24 polyethylene glycol 3350 17 17 g PO .qMWF or PRN 07/21/22 10/17/24 gram/dose oral powder (Miralax) olopatadine 0.2 % eye drops 1 drp ophthalmic (eye) DAILY 08/11/23 10/17/24 (Pataday Once Daily Relief) tamsulosin 0.4 mg capsule (Flomax) 0.4 mg PO QHS #90 caps 05/24/24 10/17/24 saw palmetto 450 mg capsule 450 mg PO DAILY 06/21/24 10/17/24 amlodipine 2.5 mg tablet 2.5 mg PO DAILY 08/03/24 10/17/24 clopidogrel 75 mg tablet 75 mg PO DAILY 08/03/24 10/17/24 ezetimibe 10 mg tablet 10 mg PO DAILY 08/03/24 10/17/24 losartan 25 mg tablet 25 mg PO DAILY 08/03/24 10/17/24 nitroglycerin 0.4 mg sublingual 0.4 mg sublingual Q5M PRN 08/03/24 10/17/24 tablet sertraline 25 mg tablet 25 mg PO DAILY #30 tabs 10/17/24 10/17/24 vit C 250 mg-vit E 90 mg-zinc 40 1 tab PO BID 10/17/24 10/17/24 mg-copper 1 zo-zjepsa-qhfoun capsule (PreserVision AREDS-2) Previous Rx's ?Medication ?Instructions ?Recorded tamsulosin 0.4 mg capsule (Flomax) 0.4 mg PO QHS #90 caps 05/24/24 sertraline 25 mg tablet 25 mg PO DAILY #30 tabs 10/17/24 Allergies Allergy/AdvReac Type Severity Reaction Status Date / Time doxycycline Allergy Unknown rash Verified 10/17/24 17:29 clindamycin AdvReac Severe Diarrhea Verified 10/17/24 17:29 cyclobenzaprine AdvReac Intermediate difficulty Verified 10/17/24 17:29 urinating montelukast (From Singulair) AdvReac Intermediate terrible Verified 10/17/24 17:29 nightmares per pt. Stmdtzl-GGI-GhI Reductase AdvReac Unknown muscle Verified 10/17/24 17:29 Inhibitor (Xeyzpic-Dzo-Pun weakness Reductase Inhibitor) General Stated Complaint: CVA/TIA TATA: 3 Exam Narrative Exam Narrative: Review of Systems: All systems reviewed & are unremarkable except as noted in HPI and below Well-developed, no acute distress NCAT Right pupil reactive, left pupil nonreactive RRR Unlabored respiratory effort Nondistended abdomen no focal neurologic deficits Appropriate mood and affect Course Vital Signs Vital signs: Vital Signs Temperature 36.6 C 10/17/24 17:23 Pulse 74 10/17/24 17:23 Respiratory Rate 15 10/17/24 17:23 Blood Pressure 170/84 H 10/17/24 17:23 Pulse Oximetry 97 10/17/24 17:23 Temperature 36.6 C 10/17/24 17:23 Pulse 74 10/17/24 21:35 Pulse Rhythm Regular 10/17/24 18:09 Pulse Strength Normal 10/17/24 18:09 Pulse 59 L 10/17/24 21:16 Respiratory Rate 16 10/17/24 21:35 Respiratory Effort Normal, Non-Labored 10/17/24 17:34 Respiratory Depth Normal 10/17/24 17:34 Respiratory Pattern Normal 10/17/24 17:34 Blood Pressure 160/95 H 10/17/24 21:35 Blood Pressure Mean 103 10/17/24 21:16 Blood Pressure Position Sitting 10/17/24 17:23 Pulse Oximetry 97 10/17/24 21:35 Oxygen Delivery Method Room Air 10/17/24 17:23 Oxygen Flow Rate 0 10/17/24 17:23 Pain Level 0 10/17/24 21:35 Lab/Test Results Lab/Test Results: Laboratory Tests Range/Units 10/17/24 10/17/24 18:00 20:22 WBC (4.4-10.8) 10^3/uL 7.74 RBC (4.36-5.78) 10^6/uL 4.58 Hgb (13.5-17.5) g/dL 13.8 Hct (40.0-50.0) % 43.4 MCV (80-95) fL 95 MCH (27.0-33.0) pg 30.1 MCHC (32.0-36.0) % 31.8 L RDW (11.8-14.1) % 13.2 Plt Count (130-400) 10^3/uL 211 MPV (8.0-11.0) fL 9.3 Immature Gran % % 0.3 Neutrophils % % 64.6 Lymphocytes % % 21.4 Monocytes % % 10.1 Eosinophils % % 2.7 Basophils % % 0.9 Nucleated RBC % (0.0-0.3) % 0.0 Absolute Neutrophils (1.2-6.7) 10^3/uL 5.00 Absolute Lymphocytes (1.2-3.4) 10^3/uL 1.66 Absolute Monocytes (0.1-0.8) 10^3/uL 0.78 Absolute Eosinophils (0.0-0.7) 10^3/uL 0.21 Absolute Basophils (0.0-0.2) 10^3/uL 0.07 Sodium (136-145) mmol/L 141 Potassium (3.5-5.1) mmol/L 4.9 Chloride (98-107) mmol/L 103 Carbon Dioxide (21.0-32.0) mmol/L 30.3 Anion Gap (3-11) mmol/L 7.7 BUN (7-18) mg/dL 26 H Creatinine (0.70-1.30) mg/dL 0.8 Est GFR (CKD-EPI 2020) (mL/min/1.73m2) 86.73 Glucose (74-106) mg/dL 101 Calcium (8.5-10.1) mg/dL 8.9 Total Bilirubin (0.2-1.0) mg/dL 0.40 AST (15-37) U/L 27 ALT (16-63) U/L 31 Alkaline Phosphatase (46-116) U/L 101 Total Protein (6.4-8.2) g/dL 7.8 Albumin (3.4-5.0) g/dL 3.8 Urine Color (Yellow) Yellow Urine Clarity (Clear) Clear Urine pH (5-8) 6.0 Ur Specific [place] (1.005-1.025) 1.010 Urine Protein (Neg-Trace) mg/dL Negative Urine Ketones (Negative) mg/dL Negative Urine Blood (Negative) Negative Urine Nitrite (Negative) Negative Urine Bilirubin (Negative) Negative Urine Urobilinogen (Up to 0.2) mg/dL 0.2 Ur Leukocyte Esterase (Negative) Negative Urine Glucose (Negative) mg/dL Negative Medical Decision Making Emergent evaluation of vision change. Symptoms less likely secondary to stroke, also consider occipital tumor, macular degeneration worsening possible, but retinal detachment seems unlikely. It is [id number] he describes the vision changes. They sound very specific and very atypical for floaters. His neurologic exam is otherwise intact. Lab work is unremarkable. No acute changes. No and signs of infectious etiology. A CTA of his head neck was obtained. I did discuss these findings with the V rad radiologist and there is concern for hypoplasia of the right vertebral artery with some occlusion, but there are significant collaterals and it reconstitutes prior to entering the school. Is unlikely that this is an acute finding or related to his symptoms today. I did have a teleneuro consult and spoke with neurologist who reviewed his CT findings. She concurs that this is not an acute finding related to her symptoms. She reports that his symptoms seem very classic of a syndrome called Catalina Bonnet. After reading about this, it seems to fit his symptom pattern. Updated family on this diagnosis. At this time there is no further emergent workup indicated and the patient can follow-up with his PCP and ophthalmology team for ongoing evaluation of symptoms particularly if they become debilitating or troublesome for him. 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 resolves with urination. Mild hesitency. Hx BPH? 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 Unclear if associated with bladder pain/bladder stretch, trial FLOMAX + UROL referral. 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 Acute serous otitis media, right ear History of excessive cerumen Actinic keratosis (~07/2022) Yearly skin checks with [facility] Submandibular sialoadenitis Sensorineural hearing loss, bilateral History of SCC (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/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 Conductive hearing loss in right ear Chronic serous otitis media, right ear Eustachian tube dysfunction right 05/28/21 resolved [facility] Conductive hearing loss, external ear Recurrent acute serous otitis media of right ear 03/10/21 Dr Kent 05/28/21 Resolved Bilateral knee pain Sciatica (10/27/12) LEFT: RECURRENT Other pulmonary embolism with acute cor pulmonale (12/21/11) 03/2009 Impairment of auditory discrimination of both ears (08/21/15) Asymmetrical sensorineural hearing loss of both ears (08/21/15) Erectile dysfunction (12/21/11) Chronic prostatitis (12/21/11) Surgical History cataract surgery OD (04/25/17) Coronary Artery Bypass [place] (CABG) (08/15/15) Family History Father , aneurysm at age 57. Essential hypertension Mother No problems noted. Sister No problems noted. Brother No problems noted. Social History Smoking/Tobacco Use Status: Former Tobacco Use Smoking risk assessment performed?: Yes Alcohol Intake: never Drug use: Never Substance use type: does not use Caregiver/Support person: No Housing: house Number of Children: 3 Communication Needs: Hard of Hearing and Corrective Lenses current occupation: retired Current gender identity: male What is your relationship status?: How often do you talk on the phone with friends or family?: three or more times per week How often do you get together with friends or relatives?: three or more times per week Panel score (0-1 are the most socially isolated patients): 1 What type of physical activity do you participate in: walking and other De tails: stretching exercises q am x 1 hour Duration: 30-45 minutes/day Frequency: daily Seatbelt use: always Drive intox or ride w/intox semi driver: No Working smoke detector in home: Yes Carbon monox detector in home: Yes Do you feel safe at home: Yes Do you feel safe in your relationship?: Yes
== END 2024-10-17 21:46 | disposition home or self-care (01) ==
PROVIDERS: Emergency Provider Emergency Medicine; PCP Nurse Practitioner Adult Health
DX: H53.16 Psychophysical visual disturbances (principal); I25.10 Atherosclerotic heart disease of native coronary artery without angina pectoris; I10 Essential (primary) hypertension; Z95.1 Presence of aortocoronary bypass graft; Z79.82 Long term (current) use of aspirin; Z79.01 Long term (current) use of anticoagulants; Z87.891 Personal history of nicotine dependence
CPT/HCPCS: 70496; 70498; 80053; 82962; 93005; 99285; 81003; 85025; 93010; 99284; J3490

== ENCOUNTER 2024-12-20 08:44 | Outpatient (CLI) | payer MEDICARE, SELFPAY ==
--- NOTE | 2024-12-20 08:30 | RT.EKG_ITS ---
APPROVED REPORT Exam: Resting ECG Reason for Exam: CAD Patient Location: O HR:66 bpm ECG Measurements Heart Rate 66 AXIS OK 302 P 0 QRSd 94 QRS -27 QT 435 T 54 QTc 456 Conclusion Sinus rhythm...normal P axis, V-rate 50- 99 Prolonged OK interval...OK >220, V-rate 50- 90 Probable left atrial enlargement...P >50mS, <-0.10mV V1 Borderline left axis deviation...QRS axis (-15,-29) Mobitz 1 second-degree AV block
== END 2024-12-20 08:45 | disposition home or self-care (01) ==
LOC: DI.CARD 08:46
PROVIDERS: PCP Nurse Practitioner Adult Health; Visit Provider Internal Medicine Cardiovascular Disease
DX: I25.10 Atherosclerotic heart disease of native coronary artery without angina pectoris (principal)
CPT/HCPCS: 93010

== ENCOUNTER → 2024-12-20 13:48 | Outpatient (BNVA) | payer MEDICARE, SELFPAY | PROVIDERS: PCP Nurse Practitioner Adult Health; Referring Provider Nurse Practitioner Adult Health; Visit Provider Internal Medicine Cardiovascular Disease | DX: I25.810 Atherosclerosis of coronary artery bypass graft(s) without angina pectoris (principal); I10 Essential (primary) hypertension; I44.1 Atrioventricular block, second degree | CPT/HCPCS: 93005; 99214 ==

== ENCOUNTER 2025-02-10 15:53 | Inpatient (IN) | payer MEDICARE, SELFPAY ==
[2025-02-10] VITALS (53 sets, daily range): BP systolic 113–156; BP diastolic 50–114; PULSE 66–90; RESP 12–34; TEMP 37.3–37.6; O2SAT 89–94
--- NOTE | 2025-02-10 16:15 | DI.RAD_ITS ---
Exam(s) XR CHEST 2V PA LATERAL EXAM: XR CHEST 2V PA LATERAL CLINICAL HISTORY: Cough, stuffy nose. TECHNIQUE: 2D digital imaging was performed. COMPARISON: CT CT THORAX ABD/PEL CTA from 07/25/2024 FINDINGS: 2 views: There are sternotomy wires. Heart size is normal. Ectatic thoracic aorta noted. There are prominent infiltrates in lower half of both lung khan involving both lower lobes as well as the right middle lobe and lingular segment of the left lung. Possible small bilateral pleural effusions. Incidentally noted is an abdominal aortic EVAR. CT scan of 07/25/2024 revealed a large abdominal aor tic aneurysm which has subsequently undergone interventional procedure with placement of EVAR. IMPRESSION: Large infiltrates in lower half of both lung khan, consistent with pneumonia. Possible small bilat eral pleural effusions. Previous sternotomy. Heart size upper normal. Incidentally noted is an EVAR in the abdominal aorta which has been placed since the prior abdominal CT scan of July 2024. DATA REPOSITORY: RADIATION DOSE DELIVERED:
--- NOTE | 2025-02-10 16:15 | RT.EKG_ITS ---
APPROVED REPORT Exam: Resting ECG Reason for Exam: AMS Patient Location: E HR:87 bpm ECG Measurements Heart Rate 87 AXIS ND 300 P 9 QRSd 105 QRS 82 QT 397 T 9 QTc 477 Conclusion Sinus rhythm, rate 87 1st degree HB, ND interval 300ms No STEMI Mild diffuse ST depression, unchanged from priors
--- NOTE | 2025-02-10 16:15 | DI.CT_ITS ---
Exam(s) CT HEAD WO EXAM: CT HEAD WO CLINICAL HISTORY: AMS, visual hallucinations. TECHNIQUE: Imaging Protocol: Axial computed tomography images with coronal and sagittal reformatted images were created and reviewed COMPARISON: CT CT BRAIN NECK CTA from 10/17/2024 FINDINGS: There are no skull fractures. There is no fluid in the visualized paranasal sinuses. There is no evidence of intracranial hemorrhage, mass effect, or shift of midline structures. There are no extra-axial fluid collections. The ventricles are not enlarged or shifted and there is no blo od within the ventricular system nor within the basal cisterns. There is unchanged periventricular hypodensity consistent with chronic small vessel disease. However , there is no evidence of acute territorial infarct. IMPRESSION: Chronic small-vessel white matter disease but no acute intracranial findings. No significant change compared to CT scan performed October 2024 Report called by myself to ER physician 02/10/2025 at 5:20 p.m. RADIATION DOSE DELIVERED: 928.42mGy.cm Total DLP DATA REPOSITORY: All CT scans at this facility are submitted to the National Radiology Data Registry (NRDR) Dose Index Registry (DIR) with the [employer] (A[employer]). RADIATION OPTIMIZATION: All CT scans at this facility use at least one of these dose optimization te chniques: automated exposure control; mA and/or kV adjustment per patient size (includes targeted exa ms where dose is matched to clinical indication); or iterative reconstruction.
[2025-02-10 16:34] LABS: Bilirubin Negative (Negative); Blood Negative (Negative); Clarity Clear (Clear); Glucose Negative (Negative); Ketones Negative (Negative); Leukocyte Esterase Negative (Negative); Nitrite Negative (Negative); Specific Gravity 1.015 (1.005-1.025); pH 5.5 (5-8)
--- NOTE | 2025-02-10 16:38 | ED.GENADUL_ITS ---
Discharge Plan Disposition Patient Disposition: Admit to [facility] Condition: Stable Discharge Details Chief Complaint: GenMedical Clinical Impression: Pneumonia of both lower lobes, Essential hypertension, Adan Bonnet syndrome, CAD (coronary artery disease) Primary Care Provider: Jaqui Baez ED Provider: Princess Demarco Home Meds and New Rx's Prescriptions: No Action cholecalciferol (vitamin D3) 125 mcg (5,000 unit) capsule 125 mcg PO DAILY PRN Rx Instructions: 07/2020 Chiropractor recommended for the winter. mk calcium carbonate [Tums Ultra] 400 mg calcium (1,000 mg) tablet,chewable 400 mg PO DAILY PRN polyethylene glycol 3350 [Miralax] 17 gram/dose powder 17 g PO .qMWF or PRN olopatadine [Pataday Once Daily Relief] 0.2 % drops 1 drp ophthalmic (eye) DAILY Rx Instructions: each eye PreserVision AREDS-2 250-90-40-1 mg capsule 1 tab PO BID amlodipine 5 mg tablet 5 mg PO DAILY Qty: 90 3RF Rx Instructions: Dose increase 11/22/2024 omega-3 fatty acids-fish oil 300-1,000 mg capsule 3 cap PO DAILY acetaminophen 325 MG tablet 325 mg PO PRN PRN aspirin [Aspirin Low-Strength] 81 MG tablet,chewable 81 mg PO DAILY saw palmetto 450 mg capsule 450 mg PO DAILY Rx Instructions: 2 in AM clopidogrel 75 mg tablet 75 mg PO DAILY ezetimibe 10 mg tablet 10 mg PO DAILY losartan 25 mg tablet 25 mg PO DAILY nitroglycerin 0.4 mg tablet, sublingual 0.4 mg sublingual Q5M PRN Rx Instructions: do not exceed 3 doses per episode sertraline 25 mg tablet 25 mg PO DAILY Qty: 90 1RF tamsulosin 0.4 mg capsule See Rx Instructions .ROUTE .COMPLEX Qty: 90 1RF Dose Instruction: TAKE ONE CAPSULE BY MOUTH EVERY DAY AT BEDTIME. START AFTER 1 WEEK WITHOUT SAW PALMETTO EVERY NIGHT AT BEDTIME Rx Instructions: TAKE ONE CAPSULE BY MOUTH EVERY DAY AT BEDTIME. START AFTER 1 WEEK WITHOUT SAW PALMETTO EVERY NIGHT AT BEDTIME HPI General Mode of arrival: ambulatory . Date/Time Provider Initiated Documentation: 02/10/25 15:54 . Limitations to Documentation: physical limitation . Information obtained by: patient, family and old records reviewed . 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 The patient is accompanied by his friend and neighbor who provides a large portion of the history due to the patient's extraordinary difficulty hearing. The friend reports that for the last week or so the patient has been having increasing frequency of visual hallucinations, thinks that neighbors are coming onto his porch and playing him videos with disturbing content. She is concerned that the patient is not caring for himself adequately, has noted that he is not walking around due to the wintertime weather. She is unsure if he is eating and drinking adequately, and per patient report he has taken several falls in the last month or so, and has bumped into his furniture frequently causing bruising to his trunk. The patient reports that he has felt a little under the weather, and does note a cough and stuffy nose. Feels like his head is stuffed with cotton. The patient lives alone, does have friends and family who come to visit to help with activities of daily living. The patient is independent in taking his medications and reports no recent changes to his meds, though his friend and son are concerned that he may be forgetting or taking accidental doubled doses given his increasing confusion this week. Exam: Gen: Awake and alert, in no apparent distress HEENT: Non-icteric sclera, right pupil briskly reactive, left nonreactive which is baseline for the patient. No conjunctival injection. No rhinorrhea bay reciated, posterior pharynx without erythema, edema or swelling. Mucous membranes dry. Scalp atraumatic Neck: Supple, full range of motion without tenderness. Lungs: No apparent respiratory distress, normal respiratory effort. Lung sounds with coarse crackles throughout CV: Appears well perfused, heart with regular rate and rhythm, strong distal pulses Abdomen: Non-distended, soft, nontender to palpation, patient does have multiple bruises in various states of healing along his bilateral sides without underlying tenderness, crepitus or deformity MSK: Moves 4 extremities without apparent limitation in ROM Skin: Visualized skin without rashes, cyanosis. Neuro: Normal Gait, no obvious focal deficits or facial asymmetry. Speaks in full, clear sentences. Psych: Friend endorsing presence of visual hallucinations, no reported SI/HI MDM: This is an 84-year-old male patient presenting for evaluation of visual hallucinations and difficulty caring for himself in the home environment. My differential includes but is not limited to intracranial hemorrhage, skull fracture, though I am reassured on my physical examination against other severe injuries as a result of the fall that occurred approximately 1 month ago. I considered metabolic and electrolyte derangements, dehydration and kidney injury, anemia, hallucinations in the setting of his known Adan Bonnet syndrome. Also considered infectious abnormalities, including viral URI, pneumonia, bronchitis, UTI. No chest pain reported to suggest ACS. No reported substance use though I did consider intoxication and withdrawal syndromes We will obtain a head CT, chest x-ray, and EKG. I will obtain a Fluvid, and laboratory studies to include CBC, CMP, magnesium, troponin, INR, ethanol, and urinalysis. ED Course: I reviewed the patient's laboratory studies, which do show a mild leukocytosis to 12.3, as well as mild anemia to 11.4. No thrombocytopenia, no metabolic derangements, BUN elevated to 28 with a normal creatinine of 0.9, concerning for dehydration and prerenal azotemia given the ratio of greater than 20:1. Mild elevation in alkaline phosphatase but otherwise no evidence of liver dysfunction. Urine is without evidence of infection or hematuria, ethanol negative, Fluvid negative. Troponin negative and without delta change on 1 hour recheck. I reviewed the patient's EKG, which shows a sinus rhythm with a first-degree heart block, and no evidence of acute ischemia. I reviewed the patient's imaging and discussed the findings with the radiologist. This is most notable for a bilateral lower lobe pneumonia, CT of the head is without acute changes such as intracranial hemorrhage, mass effect, etc. The patient has had low to normal oxygenation here in the emergency department with sats around 90% on room air. He has otherwise been hemodynamically appropriate. I provided the patient with ceftriaxone and azithromycin, but given his failure to thrive in the home environment, I am concerned for his a bility to care for himself in the outpatient environment and recommended admission to this hospital, which the patient and his friend are amenable to. I also will attempt to provide oral hydration for this patient given his history of heart disease, though certainly if he is not able to manage oral intake we could proceed with intravenous hydration. -The patient tolerated oral intake adequately, remained with an SpO2 between 89 and 92% and did not require supplemental oxygen initiation while in the emergency department. I reached out to the hospitalist who is graciously accepted this patient for admission to their service for ongoing workup and management, the patient was transferred to their care without incident. Princess Demarco MD Related Data Home Medications ?Medication ?Instructions ?Recorded ?Confirmed acetaminophen 325 mg tablet 325 mg PO PRN PRN 02/15/13 02/10/25 aspirin 81 mg chewable tablet 81 mg PO DAILY 02/15/13 02/10/25 (Aspirin Low-Strength) omega-3 fatty acids-fish oil 300 3 cap PO DAILY 09/05/19 02/10/25 mg-1,000 mg capsule cholecalciferol (vitamin D3) 125 125 mcg PO DAILY PRN 09/02/20 02/10/25 mcg (5,000 unit) capsule calcium carbonate (Tums Ultra) 400 mg PO DAILY PRN 10/14/21 02/10/25 polyethylene glycol 3350 17 17 g PO .qMWF or PRN 07/21/22 02/10/25 gram/dose oral powder (Miralax) olopatadine 0.2 % eye drops 1 drp ophthalmic (eye) DAILY 08/11/23 02/10/25 (Pataday Once Daily Relief) saw palmetto 450 mg capsule 450 mg PO DAILY 06/21/24 02/10/25 clopidogrel 75 mg tablet 75 mg PO DAILY 08/03/24 02/10/25 ezetimibe 10 mg tablet 10 mg PO DAILY 08/03/24 02/10/25 losartan 25 mg tablet 25 mg PO DAILY 08/03/24 02/10/25 nitroglycerin 0.4 mg sublingual 0.4 mg sublingual Q5M PRN 08/03/24 02/10/25 tablet vit C 250 mg-vit E 90 mg-zinc 40 1 tab PO BID 10/17/24 02/10/25 mg-copper 1 [id number] capsule (PreserVision AREDS-2) amlodipine 5 mg tablet 5 mg PO DAILY #90 tabs 11/22/24 02/10/25 sertraline 25 mg tablet 25 mg PO DAILY #90 tabs 12/11/24 02/10/25 tamsulosin 0.4 mg capsule See Rx Instructions .Route 12/13/24 02/10/25 .COMPLEX #90 caps Previous Rx's ?Medication ?Instructions ?Recorded amlodipine 5 mg tablet 5 mg PO DAILY #90 tabs 11/22/24 sertraline 25 mg tablet 25 mg PO DAILY #90 tabs 12/11/24 tamsulosin 0.4 mg capsule See Rx Instructions .Route 12/13/24 .COMPLEX #90 caps Allergies Allergy/AdvReac Type Severity Reaction Status Date / Time doxycycline Allergy Unknown rash Verified 02/10/25 16:01 clindamycin AdvReac Severe Diarrhea Verified 02/10/25 16:01 cyclobenzaprine AdvReac Intermediate difficulty Verified 02/10/25 16:01 urinating montelukast (From Singulair) AdvReac Intermediate terrible Verified 02/10/25 16:01 nightmares per pt. [id number] Reductase AdvReac Unknown muscle Verified 02/10/25 16:01 Inhibitor ([id number] weakness Reductase Inhibitor) General Stated Complaint: GenMedical TATA: 4 Course Vital Signs Vital signs: Vital Signs Temperature 37.6 C H 02/10/25 15:59 Pulse 87 02/10/25 15:59 Respiratory Rate 20 02/10/25 15:59 Blood Pressure 153/74 H 02/10/25 15:59 Pulse Oximetry 90 L 02/10/25 15:59 Temperature 37.6 C H 02/10/25 16:15 Temperature Source Tympanic 02/10/25 15:59 Pulse 87 02/10/25 16:15 Respiratory Rate 24 02/10/25 16:25 Respiratory Effort Normal 02/10/25 16:25 Respiratory Depth Normal 02/10/25 16:25 Respiratory Pattern Normal 02/10/25 16:25 Blood Pressure 153/74 H 02/10/25 16:15 Blood Pressure Position Sitting 02/10/25 16:15 Pulse Oximetry 90 L 02/10/25 16:15 Oxygen Delivery Method Room Air 02/10/25 16:15 Oxygen Flow Rate 0 02/10/25 15:59 Lab/Test Results Lab/Test Results: Laboratory Tests Range/Units 02/10/25 16:08 Urine Color (Yellow) Yellow Urine Clarity (Clear) Clear Urine pH (5-8) 5.5 Ur Specific [place] (1.005-1.025) 1.015 Urine Protein (Neg-Trace) mg/dL 100 H Urine Ketones (Negative) mg/dL Negative Urine Blood (Negative) Negative Urine Nitrite (Negative) Negative Urine Bilirubin (Negative) Negative Urine Urobilinogen (Up to 0.2) mg/dL 1.0 H Ur Leukocyte Esterase (Negative) Negative Urine Glucose (Negative) mg/dL Negative Medical Decision Making Quality:SDOH Health Related Social Needs: No Data to Display PFSH All Active Problems (Updated 02/10/25 @ 20:48 by Princess Demarco MD) Pneumonia of both lower lobes (Acute) Bilateral pneumonia (Acute) Adan Bonnet syndrome (Chronic) CAD (coronary artery disease) (Chronic) Age-related nuclear cataract, left eye (Acute) STANISLAV (generalized anxiety disorder) (Chronic) R/T health; sertraline started 2024 Non-ST elevation ND (NSTEMI) (Acute ~07/2024) Bladder pain (Acute) acute, w/ 4am urination (none afterwards).. resolves with urination. Mild hesitency. Hx BPH? 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 Unclear if associated with bladder pain/bladder stretch, trial FLOMAX + UROL referral. 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 Elliott manages 11/2022: Stopped driving Medical History Anxiety about health Posterior subcapsular polar age-related cataract, left eye Cortical age-related cataract, left eye Aneurysm of infrarenal abdominal aorta (~07/2024) [facility] [place] repair Lesion of skin of nose Visual hallucinations adan barber First degree AV block Mobitz type I Wenckebach atrioventricular block BB induced--no further BB Acute serous otitis media, right ear History of excessive cerumen Actinic keratosis (~07/2022) [facility]ly [facility] checks with [facility] Submandibular sialoadenitis Sensorineural hearing loss, bilateral History of SCC (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/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 Conductive hearing loss in right ear Chronic serous otitis media, right ear Eustachian tube dysfunction right 05/28/21 resolved ENT-[facility] Conductive hearing loss, external ear Recurrent acute serous otitis media of right ear 03/10/21 Dr Kent 05/28/21 Resolved Bilateral knee pain Sciatica (10/27/12) LEFT: RECURRENT Other pulmonary embolism with acute cor pulmonale (12/21/11) 03/2009 Impairment of auditory discrimination of both ears (08/21/15) Asymmetrical sensorineural hearing loss of both ears (08/21/15) Erectile dysfunction (12/21/11) Chronic prostatitis (12/21/11) Surgical History cataract surgery OD (04/25/17) Coronary Artery Bypass [place] (CABG) (08/15/15) Family History Father , aneurysm at age 57. Essential hypertension Mother No problems noted. Sister No problems noted. Brother No problems noted. Social History Smoking/Tobacco Use Status: Former Tobacco Use Smoking risk assessment performed?: Yes Alcohol Intake: never Drug use: Never Substance use type: does not use Caregiver/Support person: No Housing: house Number of Children: 3 Communication Needs: Hard of Hearing and Corrective Lenses current occupation: retired Current gender identity: male What is your relationship status?: How often do you talk on the phone with friends or family?: three or more times per week How often do you get together with friends or relatives?: three or more times per week Panel score (0-1 are the most socially isolated patients): 1 What type of physical activity do you participate in: walking and other Details: stretching exercises q am x 1 hour Duration: 30-45 minutes/day Frequency: daily Seatbelt use: always Drive intox or ride w/intox city route driver: No Working smoke detector in home: Yes Carbon monox detector in home: Yes Do you feel safe at home: Yes Do you feel safe in your relationship?: Yes
[2025-02-10 16:44] LABS: Bacteria Rare HPF (Negative); C & S Indicated? No; Casts Negative LPF (Negative); Crystals Negative HPF (Negative); Epithelial Cells Rare HPF (Negative); Mucus Trace (Negative); RBC Negative HPF (0-2); WBC 0-2 HPF (0-5)
[2025-02-10 16:45] LABS: Absolute Basophil Count 0.11 10^3/uL (0.0-0.2); Absolute Lymphocyte Count 1.41 10^3/uL (1.2-3.4); Absolute Monocyte Count 1.43 10^3/uL (0.1-0.8); Basophils % 0.9 %; Eosinophils % 2.4 %; HCT 35.3 % (40.0-50.0); HGB 11.4 g/dL (13.5-17.5); Immature Grans % 0.8 %; Lymphocytes % 11.4 %; MCH 29.5 pg (27.0-33.0); MCHC 32.3 % (32.0-36.0); MCV 92 fL (80-95); MPV 9.3 fL (8.0-11.0); Monocytes % 11.6 %; Neutrophils % 72.9 %; Platelet Count 287 10^3/uL (130-400); RBC 3.86 10^6/uL (4.36-5.78); RDW 13.9 % (11.8-14.1); RDW-SD 46.9 fL; WBC 12.34 10^3/uL (4.4-10.8)
[2025-02-10 16:56] LABS: INR 1.1 (0.9-1.1); Prothrombin Time 10.9 sec (9.1-11.1)
[2025-02-10 17:04] LABS: COVID-19 PCR Negative (Negative); Influenza A PCR Negative (Negative); Influenza B PCR Negative (Negative); RSV PCR Negative (Negative)
[2025-02-10 17:05] LABS: ALT 32 U/L (16-63); AST 30 U/L (15-37); Albumin 2.7 g/dL (3.4-5.0); Alkaline Phosphatase 240 U/L (46-116); Anion Gap 11.5 mmol/L (3-11); BUN 28 mg/dL (7-18); Bilirubin, Total 0.4 mg/dL (0.2-1.0); CO2 28.5 mmol/L (21.0-32.0); CREATININE 0.9 mg/dL (0.70-1.30); Calcium 8.9 mg/dL (8.5-10.1); Chloride 101 mmol/L (98-107); ETHANOL BLOOD < 3.0 mg/dL (<10); Estimated GFR 83.18 (mL/min/1.73m2); Glucose 116 mg/dL (74-106); Magnesium 2.1 mg/dL; Potassium 3.7 mmol/L (3.5-5.1); Sodium 141 mmol/L (136-145); Total Protein 7.1 g/dL (6.4-8.2); Troponin I 28 ng/L (<or=76)
[2025-02-10 17:05] LABS: Source Nasopharynx
[2025-02-10] MEDS: cefTRIAXone 1 GM/50 ML BAG IVPB (17:41)
[2025-02-10 17:48] LABS: Troponin I 22 ng/L (<or=76)
[2025-02-10] MEDS: AZITHROMYCIN 500 MG in Normal Saline 250 ML 250 MG IVPB (18:15)
--- NOTE | 2025-02-10 20:30 | W.PM.HP.N ---
Date of service: 02/10/25 Time of Service: 20:30 Assessment and Plan Assessment and plan (1) Bilateral pneumonia: Status: Acute Assessment and plan: Bilateral lower lobe infiltrates with mild leukocytosis and a harsh cough. It appears to be a community-acquired pneumonia. He received Rocephin and azithromycin in the emergency room, will continue these daily until stable. He does not appear septic and should respond to antibiotics appropriately. (2) Patrick Bonnet syndrome: Status: Chronic Assessment and plan: Patient has visual hallucinations particularly when he is tired or sick. That may be an early sign that he had the pneumonia. There is nothing specific to do for this other than reassurance. (3) CAD (coronary artery disease): Status: Chronic Assessment and plan: Recent NSTEMI, he had a cardiac cath that showed open bypass grafts. He was well enough to undergo the abdominal aortic stenting procedure in 10/2024. He is not having any current chest pain and troponins are not elevated. (4) Age-related nuclear cataract, left eye: Status: Acute Assessment and plan: He is nearly blind with no vision in the left eye and poor vision in the right eye. (5) Wears hearing aid in both ears: Status: Acute Assessment and plan: He is very hard of hearing. His son is getting his hearing aids and the cupola charger insulation. He can communicate best in his right ear. History of Present Illness History of Present Illness Chief Complaint: Bilateral lower lobe pneumonia Narrative: 84-year-old that lives independently in his own home was brought in this evening because his neighbors felt he was not acting right. He was complaining of visual hallucinations, people on his porch that were threatening. He has had similar complaints in the past but this was coupled with poor p.o. intake and apparent weakness. His son came in later and notes that he been sick for about 6 days. A few days ago he coughed all through the night producing quite a bit of mucus. No fevers have been noted. His son notes that he gets the visual hallucinations more frequently when he is sick or tired. In the emergency room he had a slightly elevated white blood cell count, mild cough, O2 sat of 90%, no fevers. His chest x-ray showed bilateral lower lobe infiltrates. Head CT showed no acute process. He is admitted for treatment of his pneumonia and further workup of his failure to thrive. Review of Systems Narrative: He is generally quite functional and with it according to his son. He prepares his own meals and takes care of his own dog. His son is with him 1 day a week on . He is not able to get out and walk in the winter because of his blindness. He recently had a abdominal aortic stenting procedure that has really slowed him down. He is lost some weight since that time. He had a non-ST elevation MN in July,. He has not had recurrent chest pain. His respiratory symptoms started 6 days ago and prior to that he was relatively well, though his son states that he was just getting back on his feet from the aortic aneurysm procedure. PFSH All Active Problems (Updated 02/10/25 @ 20:34 by Keegan Jacob MD) Bilateral pneumonia (Acute) Patrick Bonnet syndrome (Chronic) CAD (coronary artery disease) (Chronic) Age-related nuclear cataract, left eye (Acute) STANISLAV (generalized anxiety disorder) (Chronic) R/T health; sertraline started 2024 Non-ST elevation MN (NSTEMI) (Acute ~07/2024) Bladder pain (Acute) acute, w/ 4am urination (none afterwards).. resolves with urination. Mild hesitency. Hx BPH? 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 Unclear if associated with bladder pain/bladder stretch, trial FLOMAX + UROL referral. 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 Elliott manages 11/2022: Stopped driving Medical History Anxiety about health Posterior subcapsular polar age-related cataract, left eye Cortical age-related cataract, left eye Aneurysm of infrarenal abdominal aorta (~07/2024) [facility] [place] Vascular s/p repair Lesion of skin of nose Visual hallucinations patrick barber First degree AV block Mobitz type I Wenckebach atrioventricular block BB induced--no further BB Acute serous otitis media, right ear History of excessive cerumen Actinic keratosis (~07/2022) Yearly skin checks with [facility] Submandibular sialoadenitis Sensorineural hearing loss, bilateral History of SCC (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/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 Conductive hearing loss in right ear Chronic serous otitis media, right ear Eustachian tube dysfunction right 05/28/21 resolved ENT-Donte Conductive hearing loss, external ear Recurrent acute serous otitis media of right ear 03/10/21 Dr Kent 05/28/21 Resolved Bilateral knee pain Sciatica (10/27/12) LEFT: RECURRENT Other pulmonary embolism with acute cor pulmonale (12/21/11) 03/2009 Impairment of auditory discrimination of both ears (08/21/15) Asymmetrical sensorineural hearing loss of both ears (08/21/15) Erectile dysfunction (12/21/11) Chronic prostatitis (12/21/11) Surgical History cataract surgery OD (04/25/17) Coronary Artery Bypass Gaft (CABG) (08/15/15) Family History Father , aneurysm at age 57. Essential hypertension Mother No problems noted. Sister No problems noted. Brother No problems noted. Social History Smoking/Tobacco Use Status: Former Tobacco Use Smoking risk assessment performed?: Yes Alcohol Intake: never Drug use: Never Substance use type: does not use Caregiver/Support person: No Housing: house Number of Children: 3 Communication Needs: Hard of Hearing and Corrective Lenses current occupation: retired Current gender identity: male What is your relationship status?: How often do you talk on the phone with friends or family?: three or more times per week How often do you get together with friends or relatives?: three or more times per week Panel score (0-1 are the most socially isolated patients): 1 What type of physical activity do you participate in: walking and other Details: stretching exercises q am x 1 hour Duration: 30-45 minutes/day Frequency: daily Seatbelt use: always Drive intox or ride w/intox delivery driver/supervisor: No Working smoke detector in home: Yes Carbon monox detector in home: Yes Do you feel safe at home: Yes Do you feel safe in your relationship?: Yes Meds Allergies and Home Medications Allergies Allergy/AdvReac Type Severity Reaction Status Date / Time doxycycline Allergy Unknown rash Verified 02/10/25 16:01 clindamycin AdvReac Severe Diarrhea Verified 02/10/25 16:01 cyclobenzaprine AdvReac Intermediate difficulty Verified 02/10/25 16:01 urinating montelukast (From Singulair) AdvReac Intermediate terrible Verified 02/10/25 16:01 nightmares per pt. Nufrizq-UPF-HjI Reductase AdvReac Unknown muscle Verified 02/10/25 16:01 Inhibitor (Juflkrn-Hma-Vzj weakness Reductase Inhibitor) Home Medications ?Medication ?Instructions ?Recorded ?Confirmed ?Type acetaminophen 325 mg tablet 325 mg PO PRN PRN 02/15/13 02/10/25 History aspirin 81 mg chewable tablet 81 mg PO DAILY 02/15/13 02/10/25 History (Aspirin Low-Strength) omega-3 fatty acids-fish oil 300 3 cap PO DAILY 09/05/19 02/10/25 History mg-1,000 mg capsule cholecalciferol (vitamin D3) 125 125 mcg PO DAILY PRN 09/02/20 02/10/25 History mcg (5,000 unit) capsule calcium carbonate (Tums Ultra) 400 mg PO DAILY PRN 10/14/21 02/10/25 History polyethylene glycol 3350 17 17 g PO .qMWF or PRN 07/21/22 02/10/25 History gram/dose oral powder (Miralax) olopatadine 0.2 % eye drops 1 drp ophthalmic (eye) DAILY 08/11/23 02/10/25 History (Pataday Once Daily Relief) saw palmetto 450 mg capsule 450 mg PO DAILY 06/21/24 02/10/25 History clopidogrel 75 mg tablet 75 mg PO DAILY 08/03/24 02/10/25 History ezetimibe 10 mg tablet 10 mg PO DAILY 08/03/24 02/10/25 History losartan 25 mg tablet 25 mg PO DAILY 08/03/24 02/10/25 History nitroglycerin 0.4 mg sublingual 0.4 mg sublingual Q5M PRN 08/03/24 02/10/25 History tablet vit C 250 mg-vit E 90 mg-zinc 40 1 tab PO BID 10/17/24 02/10/25 History mg-copper 1 [id number] capsule (PreserVision AREDS-2) amlodipine 5 mg tablet 5 mg PO DAILY #90 tabs 11/22/24 02/10/25 Rx sertraline 25 mg tablet 25 mg PO DAILY #90 tabs 12/11/24 02/10/25 Rx tamsulosin 0.4 mg capsule See Rx Instructions .Route 12/13/24 02/10/25 Rx .COMPLEX #90 caps Exam Narrative Exam Narrative: On exam he is quite affable and interactive. He is hard of hearing but is able to communicate reasonably well. He does not appear to be able to see out of his left eye but his right eye does have some vision. His hearing is best in his right ear. He has a harsh cough that sounds as though it would be productive but no phlegm was produced during my exam. His air excursion is good his lung sounds are a bit muffled at both bases but I do not hear any specific Rales. His heart sounds are somewhat muffled but sounded regular. No significant murmurs appreciated. His abdomen is overall soft and nontender to palpation. His lower extremities are warm and appear to be well-perfused. There are no sores or lesions. Neurologically he is moving upper and lower extremities with purposeful movements without any decrement of function. Results Imaging Chest x-ray: report reviewed (Bilateral lower lobe infiltrates) Imaging Studies: CT scan of the head showed no acute processes. EKG showed first-degree AV block. Labs 02/10/25 16:40 02/10/25 16:40 Labs: Laboratory Results - last 24 hr 02/10/25 02/10/25 02/10/25 16:08 16:22 16:40 WBC 12.34 H RBC 3.86 L Hgb 11.4 L Hct 35.3 L MCV 92 MCH 29.5 MCHC 32.3 RDW 13.9 Plt Count 287 MPV 9.3 Immature Gran % 0.8 Neutrophils % 72.9 Lymphocytes % 11.4 Monocytes % 11.6 Eosinophils % 2.4 Basophils % 0.9 Nucleated RBC % 0.0 Absolute Neutrophils 9.00 H Absolute Lymphocytes 1.41 Absolute Monocytes 1.43 H Absolute Eosinophils 0.30 Absolute Basophils 0.11 PT 10.9 INR 1.1 Sodium 141 Potassium 3.7 Chloride 101 Carbon Dioxide 28.5 Anion Gap 11.5 H BUN 28 H Creatinine 0.9 Est GFR (CKD-EPI 2020) 83.18 Glucose 116 H Calcium 8.9 Magnesium 2.1 Total Bilirubin 0.4 AST 30 ALT 32 Alkaline Phosphatase 240 H Troponin I 28 Total Protein 7.1 Albumin 2.7 L Urine Color Yellow Urine Clarity Clear Urine pH 5.5 Ur Specific [place] 1.015 Urine Protein 100 H Urine Ketones Negative Urine Blood Negative Urine Nitrite Negative Urine Bilirubin Negative Urine Urobilinogen 1.0 H Ur Leukocyte Esterase Negative Urine RBC Negative Urine WBC 0-2 Ur Epithelial Cells Rare Urine Crystals Negative Urine Bacteria Rare Urine Casts Negative Urine Mucus Trace Ur Culture Indicated? No Urine Glucose Negative Ethyl Alcohol < 3.0 COVID-19 Source Nasopharynx SARS-CoV-2 (PCR) Negative Influenza Type A (PCR) Negative Influenza Type B (PCR) Negative RSV (PCR) Negative 02/10/25 02/10/25 17:25 19:21 WBC RBC Hgb Hct MCV MCH MCHC RDW Plt Count MPV Immature Gran % Neutrophils % Lymphocytes % Monocytes % Eosinophils % Basophils % Nucleated RBC % Absolute Neutrophils Absolute Lymphocytes Absolute Monocytes Absolute Eosinophils Absolute Basophils PT INR Sodium Potassium Chloride Carbon Dioxide Anion Gap BUN Creatinine Est GFR (CKD-EPI 2020) Glucose Calcium Magnesium Total Bilirubin AST ALT Alkaline Phosphatase Troponin I 22 Cancelled Total Protein Albumin Urine Color Urine Clarity Urine pH Ur Specific [place] Urine Protein Urine Ketones Urine Blood Urine Nitrite Urine Bilirubin Urine Urobilinogen Ur Leukocyte Esterase Urine RBC Urine WBC Ur Epithelial Cells Urine Crystals Urine Bacteria Urine Casts Urine Mucus Ur Culture Indicated? Urine Glucose Ethyl Alcohol COVID-19 Source SARS-CoV-2 (PCR) Influenza Type A (PCR) Influenza Type B (PCR) RSV (PCR) Last Vital Signs Temp 37.6 C H 02/10/25 16:15 Pulse 83 02/10/25 19:46 Resp 21 02/10/25 19:46 BP 129/64 02/10/25 19:46 Pulse Ox 92 02/10/25 19:46 Time Spent Time spent with Patient: 40-54 minutes Time was spent: preparing to see the patient(eg.review tests), obtaining and/or reviewing separately otained hiistory, ordering medications,tests, procedures, referring, communicating with other health senior care manager, indepentently interpreting results and counseling the patient
--- NOTE | 2025-02-10 21:11 | W.PC.ACHO ---
Registration Status: Primary Language: Preferred Language: ED Information & Data Chief Complaint GenMedical 02/10/25 16:38 Triage Note PT reports feeling tired. 02/10/25 15:59 Friend of his concerned that he has nightmares/ hallucinations and may be experiencing a UTI. Medical / Surgical History (Last Reviewed 01/03/25 @ 14:43 by Mode Kent MD) Anxiety about health Posterior subcapsular polar age-related cataract, left eye Cortical age-related cataract, left eye Aneurysm of infrarenal abdominal aorta (~07/2024) Lesion of skin of nose Visual hallucinations First degree AV block Mobitz type I Wenckebach atrioventricular block Acute serous otitis media, right ear History of excessive cerumen Actinic keratosis (~07/2022) Submandibular sialoadenitis Sensorineural hearing loss, bilateral History of SCC (squamous cell carcinoma) of skin Conductive hearing loss in right ear Chronic serous otitis media, right ear Eustachian tube dysfunction Conductive hearing loss, external ear Recurrent acute serous otitis media of right ear Bilateral knee pain Sciatica (10/27/12) Other pulmonary embolism with acute cor pulmonale (12/21/11) Impairment of auditory discrimination of both ears (08/21/15) Asymmetrical sensorineural hearing loss of both ears (08/21/15) Erectile dysfunction (12/21/11) Chronic prostatitis (12/21/11) (Last Reviewed 01/03/25 @ 14:43 by Mode Kent MD) cataract surgery OD (04/25/17) Coronary Artery Bypass Gaft (CABG) (08/15/15) Most Recent Vital Signs Temperature 37.6 C H 02/10/25 16:15 Temperature Source Tympanic 02/10/25 15:59 Pulse 83 02/10/25 19:46 Pulse 82 02/10/25 19:46 Respiratory Rate 21 02/10/25 19:46 Respiratory Effort Normal 02/10/25 16:25 Respiratory Depth Normal 02/10/25 16:25 Respiratory Pattern Normal 02/10/25 16:25 Blood Pressure 129/64 02/10/25 19:46 Blood Pressure Mean 86 02/10/25 19:46 Blood Pressure Position Sitting 02/10/25 16:15 Pulse Oximetry 92 02/10/25 19:46 Oxygen Delivery Method Room Air 02/10/25 16:15 Oxygen Flow Rate 0 02/10/25 15:59 Allergies doxycycline Allergy (Unknown, Verified 02/10/25 16:01) rash clindamycin Adverse Reaction (Severe, Verified 02/10/25 16:01) Diarrhea cyclobenzaprine Adverse Reaction (Intermediate, Verified 02/10/25 16:01) difficulty urinating montelukast (From Singulair) Adverse Reaction (Intermediate, Verified 02/10/25 16:01) terrible nightmares per pt. Vwdyplh-RAH-VhS Reductase Inhibitor (Eiglvsz-Uho-Tzi Reductase Inhibitor) Adverse Reaction (Unknown, Verified 02/10/25 16:01) muscle weakness IV IV Catheter Type [Right Saline Lock Antecubital] IV Catheter Gauge [Right 18 Antecubital] Diagnostics 02/10/25 02/10/25 02/10/25 Range/Units 19:21 17:25 16:40 WBC 12.34 H (4.4-10.8) 10^3/uL RBC 3.86 L (4.36-5.78) 10^6/uL Hgb 11.4 L (13.5-17.5) g/dL Hct 35.3 L (40.0-50.0) % MCV 92 (80-95) fL MCH 29.5 (27.0-33.0) pg MCHC 32.3 (32.0-36.0) % RDW 13.9 (11.8-14.1) % Plt Count 287 (130-400) 10^3/uL MPV 9.3 (8.0-11.0) fL Immature Gran % 0.8 % Neutrophils % 72.9 % Lymphocytes % 11.4 % Monocytes % 11.6 % Eosinophils % 2.4 % Basophils % 0.9 % Nucleated RBC % 0.0 (0.0-0.3) % Absolute Neutrophils 9.00 H (1.2-6.7) 10^3/uL Absolute Lymphocytes 1.41 (1.2-3.4) 10^3/uL Absolute Monocytes 1.43 H (0.1-0.8) 10^3/uL Absolute Eosinophils 0.30 (0.0-0.7) 10^3/uL Absolute Basophils 0.11 (0.0-0.2) 10^3/uL PT 10.9 (9.1-11.1) sec INR 1.1 (0.9-1.1) Sodium 141 (136-145) mmol/L Potassium 3.7 (3.5-5.1) mmol/L Chloride 101 (98-107) mmol/L Carbon Dioxide 28.5 (21.0-32.0) mmol/L Anion Gap 11.5 H (3-11) mmol/L BUN 28 H (7-18) mg/dL Creatinine 0.9 (0.70-1.30) mg/dL Est GFR (CKD-EPI 2020) 83.18 (mL/min/1.73m2) Glucose 116 H (74-106) mg/dL Calcium 8.9 (8.5-10.1) mg/dL Magnesium 2.1 mg/dL Total Bilirubin 0.4 (0.2-1.0) mg/dL AST 30 (15-37) U/L ALT 32 (16-63) U/L Alkaline Phosphatase 240 H (46-116) U/L Troponin I Cancelled 22 28 (<or=76) ng/L Total Protein 7.1 (6.4-8.2) g/dL Albumin 2.7 L (3.4-5.0) g/dL Urine Color (Yellow) Urine Clarity (Clear) Urine pH (5-8) Ur Specific [place] (1.005-1.025) Urine Protein (Neg-Trace) mg/dL Urine Ketones (Negative) mg/dL Urine Blood (Negative) Urine Nitrite (Negative) Urine Bilirubin (Negative) Urine Urobilinogen (Up to 0.2) mg/dL Ur Leukocyte Esterase (Negative) Urine RBC (0-2) HPF Urine WBC (0-5) HPF Ur Epithelial Cells (Negative) HPF Urine Crystals (Negative) HPF Urine Bacteria (Negative) HPF Urine Casts (Negative) LPF Urine Mucus (Negative) Ur Culture Indicated? Urine Glucose (Negative) mg/dL Ethyl Alcohol < 3.0 (<10) mg/dL COVID-19 Source SARS-CoV-2 (PCR) (Negative) Influenza Type A (PCR) (Negative) Influenza Type B (PCR) (Negative) RSV (PCR) (Negative) 02/10/25 02/10/25 Range/Units 16:22 16:08 WBC (4.4-10.8) 10^3/uL RBC (4.36-5.78) 10^6/uL Hgb (13.5-17.5) g/dL Hct (40.0-50.0) % MCV (80-95) fL MCH (27.0-33.0) pg MCHC (32.0-36.0) % RDW (11.8-14.1) % Plt Count (130-400) 10^3/uL MPV (8.0-11.0) fL Immature Gran % % Neutrophils % % Lymphocytes % % Monocytes % % Eosinophils % % Basophils % % Nucleated RBC % (0.0-0.3) % Absolute Neutrophils (1.2-6.7) 10^3/uL Absolute Lymphocytes (1.2-3.4) 10^3/uL Absolute Monocytes (0.1-0.8) 10^3/uL Absolute Eosinophils (0.0-0.7) 10^3/uL Absolute Basophils (0.0-0.2) 10^3/uL PT (9.1-11.1) sec INR (0.9-1.1) Sodium (136-145) mmol/L Potassium (3.5-5.1) mmol/L Chloride (98-107) mmol/L Carbon Dioxide (21.0-32.0) mmol/L Anion Gap (3-11) mmol/L BUN (7-18) mg/dL Creatinine (0.70-1.30) mg/dL Est GFR (CKD-EPI 2020) (mL/min/1.73m2) Glucose (74-106) mg/dL Calcium (8.5-10.1) mg/dL Magnesium mg/dL Total Bilirubin (0.2-1.0) mg/dL AST (15-37) U/L ALT (16-63) U/L Alkaline Phosphatase (46-116) U/L Troponin I (<or=76) ng/L Total Protein (6.4-8.2) g/dL Albumin (3.4-5.0) g/dL Urine Color Yellow (Yellow) Urine Clarity Clear (Clear) Urine pH 5.5 (5-8) Ur Specific [place] 1.015 (1.005-1.025) Urine Protein 100 H (Neg-Trace) mg/dL Urine Ketones Negative (Negative) mg/dL Urine Blood Negative (Negative) Urine Nitrite Negative (Negative) Urine Bilirubin Negative (Negative) Urine Urobilinogen 1.0 H (Up to 0.2) mg/dL Ur Leukocyte Esterase Negative (Negative) Urine RBC Negative (0-2) HPF Urine WBC 0-2 (0-5) HPF Ur Epithelial Cells Rare (Negative) HPF Urine Crystals Negative (Negative) HPF Urine Bacteria Rare (Negative) HPF Urine Casts Negative (Negative) LPF Urine Mucus Trace (Negative) Ur Culture Indicated? No Urine Glucose Negative (Negative) mg/dL Ethyl Alcohol (<10) mg/dL COVID-19 Source Nasopharynx SARS-CoV-2 (PCR) Negative (Negative) Influenza Type A (PCR) Negative (Negative) Influenza Type B (PCR) Negative (Negative) RSV (PCR) Negative (Negative) Intake and Output - 24 Hour Total 02/10/25 15:53 thru 02/10/25 15:59 Weight 82.554 kg Falls Risk Assessment History of Falls Previous History 02/10/25 16:43 Contributing Factors Confusion 02/10/25 16:43 Ambulatory Aids Independent 02/10/25 16:43 Tubes/Lines W/no contributing factors 02/10/25 16:43 Cognition Cognitive impairment 02/10/25 16:43 Fall Total Score 43 02/10/25 16:43 Level of Risk Moderate Risk 02/10/25 16:43 Problems (Last Reviewed 01/03/25 @ 14:43 by Mode Kent MD) Bilateral pneumonia (Acute) Adan Bonnet syndrome (Chronic) CAD (coronary artery disease) (Chronic) Age-related nuclear cataract, left eye (Acute) Wears hearing aid in both ears (Acute) v v v v v v v v v Sending and/or Receiving Nurses: Please use comment section below to note any information pertinent to the patient hand-off not included above. Information / Comments: No further questions. Report received from: Vivienne Milner
[2025-02-10] MEDS: Acetaminophen 325 MG TAB PO (22:02)
[2025-02-10] MEDS: Normal Saline Flush 10 ML SYR IVP (22:03)
[2025-02-10] MEDS: Albuterol 2.5 MG/3 ML INH SOLN VIAL UPD (22:15)
[2025-02-11 02:47] VITALS: BP 135/69; PULSE 90; RESP 18; TEMP 37.2; O2SAT 90
[2025-02-11 06:32] LABS: Absolute Basophil Count 0.11 10^3/uL (0.0-0.2); Absolute Eosinophil Count 0.32 10^3/uL (0.0-0.7); Absolute Lymphocyte Count 1.65 10^3/uL (1.2-3.4); Absolute Monocyte Count 1.16 10^3/uL (0.1-0.8); Basophils % 0.9 %; Eosinophils % 2.6 %; HCT 36.4 % (40.0-50.0); HGB 11.6 g/dL (13.5-17.5); Immature Grans % 0.8 %; Lymphocytes % 13.2 %; MCH 29.2 pg (27.0-33.0); MCHC 31.9 % (32.0-36.0); MCV 92 fL (80-95); MPV 9.4 fL (8.0-11.0); Monocytes % 9.3 %; Neutrophils % 73.2 %; Platelet Count 291 10^3/uL (130-400); RBC 3.97 10^6/uL (4.36-5.78); RDW 13.9 % (11.8-14.1); RDW-SD 47.3 fL; WBC 12.49 10^3/uL (4.4-10.8)
[2025-02-11 06:34] LABS: Absolute Neutrophil Count 9.14 10^3/uL (1.2-6.7)
[2025-02-11 06:52] LABS: Anion Gap 9.6 mmol/L (3-11); BUN 22 mg/dL (7-18); CO2 28.4 mmol/L (21.0-32.0); CREATININE 0.8 mg/dL (0.70-1.30); Calcium 8.9 mg/dL (8.5-10.1); Chloride 103 mmol/L (98-107); Estimated GFR 86.19 (mL/min/1.73m2); Glucose 103 mg/dL (74-106); Potassium 3.6 mmol/L (3.5-5.1); Sodium 141 mmol/L (136-145)
[2025-02-11 08:10] VITALS: BP 148/76; PULSE 86; RESP 20; TEMP 37.9; O2SAT 92
[2025-02-11] MEDS: Clopidogrel 75 MG TAB PO (09:11)
[2025-02-11] MEDS: Azithromycin 250 MG TAB PO (09:11)
[2025-02-11] MEDS: Polyethylene Glycol 3350 17 GM PACKET PO (09:11)
[2025-02-11] MEDS: Preservision CAPSULE 1 CAP PO ×2 (09:13→19:50)
[2025-02-11] MEDS: Aspirin 81 MG CHEW PO (09:13)
[2025-02-11] MEDS: amLODIPine 5 MG TAB PO (09:13)
[2025-02-11] MEDS: Normal Saline Flush 10 ML SYR IVP ×4 (09:14→19:50)
[2025-02-11] MEDS: Acetaminophen 325 MG TAB PO ×2 (09:24→18:25)
--- NOTE | 2025-02-11 09:47 | W.PM.PROGNOT ---
Date of Service Date of service: 02/11/25 Time of Service: 09:47 Assessment and Plan Assessment and plan (1) Bilateral pneumonia: Status: Acute Assessment and plan: -Bilateral lower lobe infiltrates, CAP, with mild leukocytosis and a harsh cough; patient does not meet sepsis criteria -s/p Rocephin and azithromycin in the emergency department, will continue (2) Adan Bonnet syndrome: Status: Chronic Assessment and plan: -Patient has visual hallucinations particularly when he is tired or sick may have been as early sign of infection prior to arrival -Patient no longer he greater experiencing visual hallucinations (3) CAD (coronary artery disease): Status: Chronic Assessment and plan: -Recent NSTEMI, he had a cardiac cath that showed open bypass grafts. -He was well enough to undergo the abdominal aortic stenting procedure in 10/2024. ' -He is not having any current chest pain and troponins are not elevated. 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 (5) Wears hearing aid in both ears: Status: Acute Assessment and plan: -He is very hard of hearing. -His son is getting his hearing aids and the facility examiner. -He can communicate best in his right ear. Subjective Subjective Interval history since last seen: Patient states that he is feeling better as compared to yesterday. He still has a cough, but feels his breathing is better and is no longer experiencing visual hallucinations. He has no other complaints or concerns at this time. Exam Narrative Exam Narrative: Well-appearing gentleman laying in bed in no acute distress, ANO x 4, hard of hearing, heart regular rate rhythm, lungs with diffuse coarse breath sounds though good air movement throughout, abdomen soft, nontender, nondistended Objective Last Vital Signs Temp 100.2 F H 02/11/25 08:10 Pulse 86 02/11/25 08:10 Resp 20 02/11/25 08:10 BP 148/76 H 02/11/25 08:10 Pulse Ox 92 02/11/25 08:10 Laboratory Results - last 24 hr 02/10/25 02/10/25 02/10/25 16:08 16:22 16:40 WBC 12.34 H RBC 3.86 L Hgb 11.4 L Hct 35.3 L MCV 92 MCH 29.5 MCHC 32.3 RDW 13.9 Plt Count 287 MPV 9.3 Immature Gran % 0.8 Neutrophils % 72.9 Lymphocytes % 11.4 Monocytes % 11.6 Eosinophils % 2.4 Basophils % 0.9 Nucleated RBC % 0.0 Absolute Neutrophils 9.00 H Absolute Lymphocytes 1.41 Absolute Monocytes 1.43 H Absolute Eosinophils 0.30 Absolute Basophils 0.11 PT 10.9 INR 1.1 Sodium 141 Potassium 3.7 Chloride 101 Carbon Dioxide 28.5 Anion Gap 11.5 H BUN 28 H Creatinine 0.9 Est GFR (CKD-EPI 2020) 83.18 Glucose 116 H Calcium 8.9 Magnesium 2.1 Total Bilirubin 0.4 AST 30 ALT 32 Alkaline Phosphatase 240 H Troponin I 28 Total Protein 7.1 Albumin 2.7 L Urine Color Yellow Urine Clarity Clear Urine pH 5.5 Ur Specific Marion 1.015 Urine Protein 100 H Urine Ketones Negative Urine Blood Negative Urine Nitrite Negative Urine Bilirubin Negative Urine Urobilinogen 1.0 H Ur Leukocyte Esterase Negative Urine RBC Negative Urine WBC 0-2 Ur Epithelial Cells Rare Urine Crystals Negative Urine Bacteria Rare Urine Casts Negative Urine Mucus Trace Ur Culture Indicated? No Urine Glucose Negative Ethyl Alcohol < 3.0 COVID-19 Source Nasopharynx SARS-CoV-2 (PCR) Negative Influenza Type A (PCR) Negative Influenza Type B (PCR) Negative RSV (PCR) Negative 02/10/25 02/10/25 02/11/25 17:25 19:21 05:23 WBC 12.49 H RBC 3.97 L Hgb 11.6 L Hct 36.4 L MCV 92 MCH 29.2 MCHC 31.9 L RDW 13.9 Plt Count 291 MPV 9.4 Immature Gran % 0.8 Neutrophils % 73.2 Lymphocytes % 13.2 Monocytes % 9.3 Eosinophils % 2.6 Basophils % 0.9 Nucleated RBC % 0.0 Absolute Neutrophils 9.14 H Absolute Lymphocytes 1.65 Absolute Monocytes 1.16 H Absolute Eosinophils 0.32 Absolute Basophils 0.11 PT INR Sodium 141 Potassium 3.6 Chloride 103 Carbon Dioxide 28.4 Anion Gap 9.6 BUN 22 H Creatinine 0.8 Est GFR (CKD-EPI 2020) 86.19 Glucose 103 Calcium 8.9 Magnesium Total Bilirubin AST ALT Alkaline Phosphatase Troponin I 22 Cancelled Total Protein Albumin Urine Color Urine Clarity Urine pH Ur Specific Marion Urine Protein Urine Ketones Urine Blood Urine Nitrite Urine Bilirubin Urine Urobilinogen Ur Leukocyte Esterase Urine RBC Urine WBC Ur Epithelial Cells Urine Crystals Urine Bacteria Urine Casts Urine Mucus Ur Culture Indicated? Urine Glucose Ethyl Alcohol COVID-19 Source SARS-CoV-2 (PCR) Influenza Type A (PCR) Influenza Type B (PCR) RSV (PCR) Time Spent with Patient Time Spent with Patient: >50 minutes Time was spent: preparing to see the patient(eg.review tests), obtaining and/or reviewing separately otained hiistory, ordering medications,tests, procedures, referring, communicating with other health career development facilitator, indepentently interpreting results, counseling the patient and care coordination
[2025-02-11 11:09] VITALS: BP 137/93; PULSE 92; RESP 20; TEMP 37; O2SAT 90
--- NOTE | 2025-02-11 11:45 | W.NUTRFU ---
Date of service: 02/11/25 Time of Service: 11:45 Nutrition Note NOTE: Pt is 84yo male being treated for bilat PNA, has hx of CAD, Adan Bonnet syndrome. Sleeping on my visit - did not wake him weight stable this admission and in recent hx. tolerating regular diet. total protein lab wnl yesterday with low albumin - more indicative of inflammation. Good po intake No aggressive nutrition intervention planned at this time Will continue to monitor pt labs, intake, weight Time Spent in Nutritional Counseling and Treatment: 0
--- NOTE | 2025-02-11 13:09 | PHACLINREV_ITS ---
Pharmacy Admission Review Admission Clinical Review Admission Pharmacy Review: Bilateral pneumonia (Acute) Age-related nuclear cataract, left eye (Acute) Wears hearing aid in both ears (Acute) doxycycline Allergy (Unknown, Verified 02/10/25 16:01) rash clindamycin Adverse Reaction (Severe, Verified 02/10/25 16:01) Diarrhea cyclobenzaprine Adverse Reaction (Intermediate, Verified 02/10/25 16:01) difficulty urinating montelukast (From Singulair) Adverse Reaction (Intermediate, Verified 02/10/25 16:01) terrible nightmares per pt. Wcdkird-MRC-GoE Reductase Inhibitor (Vkrlakg-Bsu-Pmv Reductase Inhibitor) Adverse Reaction (Unknown, Verified 02/10/25 16:01) muscle weakness Resuscitation Status Full Code Height 5 ft 11.5 in Weight 82.5 kg Comments Comments/Follow Ups: Watch BP, labs and for med changes. Pharmacy Admission Review Renal Dosing Renal Dosing: BUN 22 mg/dL (7-18) H 02/11/25 05:23 Creatinine 0.8 mg/dL (0.70-1.30) 02/11/25 05:23 Medications needing adjustments: Reviewed (Crcl ~61.8 mL per [employer] and is over 70 mL/min if you do not round SCr. Current meds are okay) Anticoagulation Anticoagulation: Hgb 11.6 g/dL (13.5-17.5) L 02/11/25 05:23 Hct 36.4 % (40.0-50.0) L 02/11/25 05:23 Plt Count 291 10^3/uL (130-400) 02/11/25 05:23 INR 1.1 (0.9-1.1) 02/10/25 16:40 Creatinine 0.8 mg/dL (0.70-1.30) 02/11/25 05:23 DVT Prophylaxis: Intervened (No physical or chemical VTE prophylaxis currently ordered, will mention to provider.) Opiate Usage Evaluate Pain Scale/Pains Meds: N/A Relevant Labs Relevant Labs: Sodium 141 mmol/L (136-145) 02/11/25 05:23 Potassium 3.6 mmol/L (3.5-5.1) 02/11/25 05:23 Chloride 103 mmol/L (98-107) 02/11/25 05:23 Magnesium 2.1 mg/dL 02/10/25 16:40 Electrolytes, C-Reactive P, ESR: Reviewed DM Control DM Control: Glucose 103 mg/dL (74-106) 02/11/25 05:23 DM Control: Reviewed (No DM in patients medical history, previous A1c 5.4 on 07/31/2024) Cardiac Review Cardiac Review: Troponin I Cancelled 02/10/25 19:21 BP, HR, EF%: Reviewed (BP has been up and down a bit and HR has mostly been within normal limits so far this admission.) QTc Review QTc: Reviewed (QTc 477 per EKG on 02/10/25) IV to PO Switch IV Medications: Reviewed Home Meds Home Med List reviewed: Reviewed Relevent Home Meds Not ordered & why?: cholecalciferol and olopatadine (ordered then canceled); omega 3, sertraline and losartan (ordered on admission the discontinued today, per providers note losartan is on the patients home med list but pt stated that he does not take this). Current Meds Current Medication Order Review: Intervened (adjusted the sig on the nitroglycerin order based on the information in the dosing directions) Pharmacy Antibiotic Review Relevant Labs: WBC 12.49 10^3/uL (4.4-10.8) H 02/11/25 05:23 Temperature 37 C Temperature 37.9 C Temperature 37.2 C Pharmacy Antibiotic Activity: Reviewed, no change Comments: Ceftriaxone and azithromycin continue (day 2) for pneumonia. Comments Comments/Follow Ups: Watch BP, labs and for med changes.
[2025-02-11 15:02] VITALS: BP 131/68; PULSE 84; RESP 20; TEMP 37.1; O2SAT 92
[2025-02-11] MEDS: Enoxaparin 40 MG/0.4 ML SYR SC (15:07)
[2025-02-11] MEDS: cefTRIAXone 1 GM/50 ML BAG IVPB (15:08)
--- NOTE | 2025-02-11 15:43 | INITIAL_ITS ---
Date of service: 02/11/25 Time of Service: 15:43 Care Management Initial Assmt Initial Assessment Reason for Hospitalization: bilateral pneumonia Functional Status/Living Situation Patient Presentation: Angel presented to the ED yesterday afternoon with c/o increasing visual hallucinations (has hx of Carles Bonnet syndrome), and not caring for himself adequately. Angel's neighbor was concerned and brought him to the ED. Angel was found to have bilateral pneumonia and was admitted to [facility] for IV antibiotics. When met with Angel today he was sitting up in the bed. His son Rashard was visiting. Both were very pleasant, but Angel is hard of hearing, per Rashard, his ears are clogged. Angel is followed by Dr. Kent monthly. Angel lives in a single family home by himself. Rashard visits once weekly, and helps his Dad with groceries and bill paying. Angel is very independent. Does his own cooking and light house keeping. He is surrounded by people who care about him, including his neighbors and his dog. Angel and Rashard would like for Angel to remain in his home as long as possible. Rashard is taking this event as the push to start thinking about aircraft maintenance director planning for his Dad. [facility] referral was sent, and it is anticipated that Angel will receive new services. Town of Residence: [facility] Resides with: Alone Significant Other/Family: Local (son Rashard and his Stacey are local, sons [place] and Fercho live out of state.) Natural Supports: family, friends, neighbors Employment Status: Retired ([employer]) Instrumental Activities of Daily Living (ADLs): Independent and Requires support with Diabetes Nurse, Groceries, Laundry and Transportation (Angel meal plans and cooks. Rashard takes him shopping and drives him to all of his appointments.) Activities/Hobbies/SocialSupport: Likes to walk the neighborhood; talk with friends, family and neighbors; and be with his dog, Arina Medications Medication Management: No Issues/Barriers identified Physical Functioning/Mobility Assistive Device: none. uses a treadmill at home Advance Directives Advance Directives: Do you have an Advance Directive: Y 07/25/24 15:28 AD On File at [facility]: Y 07/25/24 15:28 Date Asked 10/17/24 10/17/24 17:58 AD Date Reviewed 02/10/25 02/10/25 16:02 COLST On File at [facility] COLST Date Scanned Code Status Resuscitation Status Full Code Insurance Coverage/Financial Issues Insurance: Medicare Part A & B - AARP [facility] Supplemental Financial Issues: none Care Team Visit Care Team Role Provider Type Denis Michael MD MD [facility] STAFF PHYSICIAN Jaqui Baez NP Primary Care Provider NURSE PRACTITIONER InPatient Junior Jose Other Providers OTHER Princess Demarco MD Emergency Provider [facility] STAFF PHYSICIAN Keegan Jacob MD Admit Provider [facility] STAFF PHYSICIAN Attending Provider Discharge Potential Discharge Needs: PT Evaluation and PCP F/U Appt Anticipated Barriers to Discharge: None Identified Patient/Family Education Needs: Review discharge instructions, discuss Ask Me Three Transportation: Private vehicle Plan: Anticipate that Angel will be discharged home with new services of [facility] RN and possibly PT (eval is pending). He will f/u with his PCP and his community providers, and continue per his plan of care. He will transport home with his Rashard. CM will continue to follow. Social Determinants of Health Screening Social Determinants of Health last assessed: 02/11/25 Will the Patient Participate in the Screening?: Yes Do you worry about having a steady place to live?: no Problems where you live: no known problems In the past 12 months, have you had to go without electric, gas, oil or water in your home?: no Have you or anyone in your house had to go without enough food to eat?: no Has lack of transportation kept you from medical appointments or from doing things needed for daily living?: no Has anyone in your life made you feel unsafe or unsupported?: no How hard is it for you to pay for the very basics like food, housing, medical c are, and heating? Would you say it is:: Somewhat hard Do you want help finding or keeping work or a job?: I do not need or want help If for any reason you need help with day-to-day activities such as bathing, preparing meals, shopping, managing finances, etc., do you get the help you need?: I don?t need any help How often do you feel lonely or isolated from those around you?: Never Do you speak a language other than Yi at home?: No Does the patient want assistance with any of the above?: No Health Related Social Needs Health related social needs: problems related to housing/economic circumstances (Z59.89) PFSH All Active Problems (Updated 02/10/25 @ 20:48 by Princess Demarco MD) Pneumonia of both lower lobes (Acute) Bilateral pneumonia (Acute) Adan Bonnet syndrome (Chronic) CAD (coronary artery disease) (Chronic) Age-related nuclear cataract, left eye (Acute) STANISLAV (generalized anxiety disorder) (Chronic) R/T health; sertraline started 2024 Non-ST elevation [place] (NSTEMI) (Acute ~07/2024) Bladder pain (Acute) acute, w/ 4am urination (none afterwards).. resolves with urination. Mild hesitency. Hx BPH? 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 Unclear if associated with bladder pain/bladder stretch, trial FLOMAX + UROL referral. 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 Elliott manages 11/2022: Stopped driving Medical History Anxiety about health Posterior subcapsular polar age-related cataract, left eye Cortical age-related cataract, left eye Aneurysm of infrarenal abdominal aorta (~07/2024) [facility] [place] Vascular s/p repair Lesion of skin of nose Visual hallucinations adan barber First degree AV block Mobitz type I Wenckebach atrioventricular block BB induced--no further BB Acute serous otitis media, right ear History of excessive cerumen Actinic keratosis (~07/2022) Yearly skin checks with [facility] D[facility] Submandibular sialoadenitis Sensorineural hearing loss, bilateral History of SCC (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/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 Conductive hearing loss in right ear Chronic serous otitis media, right ear Eustachian tube dysfunction right 05/28/21 resolved ENT-[facility] Conductive hearing loss, external ear Recurrent acute serous otitis media of right ear 03/10/21 Dr Kent 05/28/21 Resolved Bilateral knee pain Sciatica (10/27/12) LEFT: RECURRENT Other pulmonary embolism with acute cor pulmonale (12/21/11) 03/2009 Impairment of auditory discrimination of both ears (08/21/15) Asymmetrical sensorineural hearing loss of both ears (08/21/15) Erectile dysfunction (12/21/11) Chronic prostatitis (12/21/11) Surgical History cataract surgery OD (04/25/17) Coronary Artery Bypass [place] (CABG) (08/15/15) Family History Father , aneurysm at age 57. Essential hypertension Mother No problems noted. Sister No problems noted. Brother No problems noted. Social History Smoking/Tobacco Use Status: Former Tobacco Use Smoking risk assessment performed?: Yes Alcohol Intake: never Drug use: Never Substance use type: does not use Caregiver/Support person: No Housing: house Number of Children: 3 Communication Needs: Hard of Hearing and Corrective Lenses current occupation: retired Current gender identity: male What is your relationship status?: How often do you talk on the phone with friends or family?: three or more times per week How often do you get together with friends or relatives?: three or more times per week Panel score (0-1 are the most socially isolated patients): 1 What type of physical activity do you participate in: walking and other Details: stretching exercises q am x 1 hour Duration: 30-45 minutes/day Frequency: daily Seatbelt use: always Drive intox or ride w/intox commercial trailer truck driver: No Working smoke detector in home: Yes Carbon monox detector in home: Yes Do you feel safe at home: Yes Do you feel safe in your relationship?: Yes Readmission Within the Past 30 Days Yes or No: No Anticipated HH Services Anticipated HH Services at Discharge [facility] Needed, MEDICAL RECORDS COORDINATOR, PT and RN.
[2025-02-11] MEDS: Sertraline 25 MG TAB PO (16:33)
[2025-02-11] MEDS: Losartan 25 MG TAB PO (16:33)
[2025-02-11 16:50] VITALS: BP 140/74; PULSE 84
[2025-02-11] MEDS: Tamsulosin 0.4 MG CAPCR PO (19:50)
[2025-02-11 23:32] VITALS: BP 150/72; PULSE 85; RESP 22; TEMP 37.1; O2SAT 89
[2025-02-12 03:05] VITALS: BP 133/71; PULSE 93; RESP 19; TEMP 37.7; O2SAT 88
[2025-02-12 03:18] VITALS: TEMP 37.2
[2025-02-12 07:24] VITALS: BP 153/76; PULSE 82; RESP 20; TEMP 37.6; O2SAT 90
[2025-02-12] MEDS: Preservision CAPSULE 1 CAP PO (08:13)
[2025-02-12] MEDS: Clopidogrel 75 MG TAB PO (08:13)
[2025-02-12] MEDS: Sertraline 25 MG TAB PO (08:14)
[2025-02-12] MEDS: amLODIPine 5 MG TAB PO (08:14)
[2025-02-12] MEDS: Azithromycin 250 MG TAB PO (08:14)
[2025-02-12] MEDS: Losartan 25 MG TAB PO (08:14)
[2025-02-12] MEDS: Normal Saline Flush 10 ML SYR IVP (08:15)
--- NOTE | 2025-02-12 09:47 | DSE_ITS ---
Date of service: 02/12/25 Time of Service: 09:48 DS: Diagnosis Discharge Diagnosis (1) Bilateral pneumonia: Status: Acute (2) Adan Bonnet syndrome: Status: Chronic (3) CAD (coronary artery disease): Status: Chronic (4) Age-related nuclear cataract, left eye: Status: Acute (5) Wears hearing aid in both ears: Status: Acute Discharge Plan Disposition Patient Disposition: Home W/Home Health Services Condition: Good Discharge Details Reason For Visit: Pneumonia Admit Date/Time: 02/10/25 20:19 Admit Provider: Keegan Jacob Attending Provider: Keegan Jacob Primary Care Provider: Jaqui Baez Hospital Course Hospital Course: Patient initially presented with signs and symptoms consistent with a bilateral pneumonia which exacerbated his Adan Bonnet syndrome that led to a short-term delirium with increased hallucinations and paranoid delusions. Patient rapidly improved from his community-acquired pneumonia and was found to have delirium as his mental status worsened later in the day. However, after prolonged discussion with the patient's son as well as with the patient (in the morning while he was lucid and in his normal mental state, they understood the importance of discharge as this would be most beneficial for his mental status. Given that he improved from his respiratory status and pneumonia was determined he was stable for discharge home and will have an additional 1 day of azithromycin and 4 days of cefpodoxime. Home Meds and New Rx's Prescriptions: New azithromycin 250 mg Tablet 250 mg PO DAILY Qty: 1 0RF cefpodoxime 200 mg tablet 200 mg PO BID Qty: 6 0RF Rx Instructions: must administer with a meal/food Continued cholecalciferol (vitamin D3) 125 mcg (5,000 unit) capsule 125 mcg PO DAILY PRN Rx Instructions: 07/2020 Chiropractor recommended for the winter. mk calcium carbonate [Tums Ultra] 400 mg calcium (1,000 mg) tablet,chewable 400 mg PO DAILY PRN polyethylene glycol 3350 [Miralax] 17 gram/dose powder 17 g PO .qMWF or PRN olopatadine [Pataday Once Daily Relief] 0.2 % drops 1 drp ophthalmic (eye) DAILY Rx Instructions: each eye PreserVision AREDS-2 250-90-40-1 mg capsule 1 tab PO BID amlodipine 5 mg tablet 5 mg PO DAILY Qty: 90 3RF Rx Instructions: Dose increase 11/22/2024 omega-3 fatty acids-fish oil 300-1,000 mg capsule 3 cap PO DAILY acetaminophen 325 MG tablet 325 mg PO PRN PRN aspirin [Aspirin Low-Strength] 81 MG tablet,chewable 81 mg PO DAILY saw palmetto 450 mg capsule 450 mg PO DAILY Rx Instructions: 2 in AM clopidogrel 75 mg tablet 75 mg PO DAILY losartan 25 mg tablet 25 mg PO DAILY nitroglycerin 0.4 mg tablet, sublingual 0.4 mg sublingual Q5M PRN Rx Instructions: do not exceed 3 doses per episode sertraline 25 mg tablet 25 mg PO DAILY Qty: 90 1RF tamsulosin 0.4 mg capsule See Rx Instructions .ROUTE .COMPLEX Qty: 90 1RF Dose Instruction: TAKE ONE CAPSULE BY MOUTH EVERY DAY AT BEDTIME. START AFTER 1 WEEK WITHOUT SAW PALMETTO EVERY NIGHT AT BEDTIME Rx Instructions: TAKE ONE CAPSULE BY MOUTH EVERY DAY AT BEDTIME. START AFTER 1 WEEK WITHOUT SAW PALMETTO EVERY NIGHT AT BEDTIME Discontinued ezetimibe 10 mg tablet 10 mg PO DAILY Discharge Instructions Activity:: Activity as Tolerated Equipment/Supplies:: No Equipment Needed Diet:: As Tolerated Discharge Orders Discharge Orders: Discharge Order (Routine); Ordered 02/12/25 Ordered By: Denis Michael DS: Summary Time Spent with Patient providing and/or coordinating discharge services: Greater than 30 minutes Status at Discharge Functional status at discharge: independent ambulation Overall status at discharge: patient is back to baseline Mental Status: mental status grossly normal Speech and Movement: speech and movement normal Mood: congruent mood Affect: normal affect Quality:SDOH Health Related Social Needs: Health related social needs problems related to housin g/economic circumstances (Z59.89) Exam Narrative Exam Narrative: Well-appearing gentleman laying in bed in no acute distress, ANO x 4, hard of hearing, heart regular rate rhythm, lungs with diffuse coarse breath sounds though good air movement throughout, abdomen soft, nontender, nondistended Psych Mental Status: mental status grossly normal Speech and Movement: speech and movement normal Mood: congruent mood Affect: normal affect DS: Data Vitals/I&O Vitals and I&O: Vital Signs Temperature 99.7 F H 02/12/25 07:24 Temperature Source Temporal Artery Scan 02/12/25 07:24 Pulse 82 02/12/25 07:24 Pulse Rhythm Regular 02/10/25 21:35 Pulse 88 02/10/25 21:02 Respiratory Rate 20 02/12/25 07:24 Respiratory Effort Non-Labored 02/10/25 21:35 Respiratory Depth Normal 02/10/25 21:35 Respiratory Pattern Normal 02/10/25 21:35 Blood Pressure 153/76 H 02/12/25 07:24 Blood Pressure Mean 96 02/10/25 21:02 Blood Pressure Position Sitting 02/10/25 16:15 Pulse Oximetry 90 L 02/12/25 07:24 Oxygen Delivery Method Room Air 02/12/25 07:24 Oxygen Flow Rate 0 02/12/25 07:24 Pain Level 0 02/10/25 21:45 Comment Nurse notified. 02/11/25 11:09 Intake & Output 02/11/25 02/12/25 02/12/25 17:59 05:59 17:59 Intake Total 290 / 290 160 / 450 Output Total 200 / 200 Balance 90 / 90 160 / 250 Intake: IV 50 / 50 10 / 60 Oral 240 / 240 150 / 390 Output: Urine 200 / 200 Other: Urine Color Yellow Pale Urine Appearance Clear Comment voided in toilet. voided in toilet. PFSH All Active Problems (Updated 02/10/25 @ 20:48 by Princess Demarco MD) Pneumonia of both lower lobes (Acute) Bilateral pneumonia (Acute) Adan Bonnet syndrome (Chronic) CAD (coronary artery disease) (Chronic) Age-related nuclear cataract, left eye (Acute) STANISLAV (generalized anxiety disorder) (Chronic) R/T health; sertraline started 2024 Non-ST elevation [place] (NSTEMI) (Acute ~07/2024) Bladder pain (Acute) acute, w/ 4am urination (none afterwards).. resolves with urination. Mild hesitency. Hx BPH? 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 Unclear if associated with bladder pain/bladder stretch, trial FLOMAX + UROL referral. 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 Elliott manages 11/2022: Stopped driving Medical History Anxiety about health Posterior subcapsular polar age-related cataract, left eye Cortical age-related cataract, left eye Aneurysm of infrarenal abdominal aorta (~07/2024) [facility] [place] Vascular s/p repair Lesion of skin of nose Visual hallucinations adan barber First degree AV block Mobitz type I Wenckebach atrioventricular block BB induced--no further BB Acute serous otitis media, right ear History of excessive cerumen Actinic keratosis (~07/2022) Yearly skin checks with [facility] Submandibular sialoadenitis Sensorineural hearing loss, bilateral History of SCC (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/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 Conductive hearing loss in right ear Chronic serous otitis media, right ear Eustachian tube dysfunction right 05/28/21 [facility] Conductive hearing loss, external ear Recurrent acute serous otitis media of right ear 03/10/21 Dr Kent 05/28/21 Resolved Bilateral knee pain Sciatica (10/27/12) LEFT: RECURRENT Other pulmonary embolism with acute cor pulmonale (12/21/11) 03/2009 Impairment of auditory discrimination of both ears (08/21/15) Asymmetrical sensorineural hearing loss of both ears (08/21/15) Erectile dysfunction (12/21/11) Chronic prostatitis (12/21/11) Surgical History cataract surgery OD (04/25/17) Coronary Artery Bypass Gaft (CABG) (08/15/15) Family History Father , aneurysm at age 57. Essential hypertension Mother No problems noted. Sister No problems noted. Brother No problems noted. Social History Smoking/Tobacco Use Status: Former Tobacco Use Smoking risk assessment performed?: Yes Alcohol Intake: never Drug use: Never Substance use type: does not use Caregiver/Support person: No Housing: house Number of Children: 3 Communication Needs: Hard of Hearing and Corrective Lenses current occupation: retired Current gender identity: male What is your relationship status?: How often do you talk on the phone with friends or family?: three or more times per week How often do you get together with friends or relatives?: three or more times per week Panel score (0-1 are the most socially isolated patients): 1 What type of physical activity do you participate in: walking and other Details: stretching exercises q am x 1 hour Duration: 30-45 minutes/day Frequency: daily Seatbelt use: always Drive intox or ride w/intox 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
--- NOTE | 2025-02-12 09:48 | PDOC.HHF2F ---
Home Health Referral Home Health Orders Clinical synopsis of why skilled professionals are needed: CAP, blindness, hard of hearing, Adan Bonnet syndrome, CAD Registered Nurse: Check all that apply Assess for exacerbation of medical condition, instruct patient/caregivers on signs and symptoms to report for early detection: Ordered Physical Therapist: Check all that apply Increase strength & endurance for safe mobility at home: Ordered To design/establish home maintenance program: Ordered Fall reduction therapy program for patient with history of frequent falls: Ordered Home safety evaluation and teaching/gait training including stair management (if applicable): Ordered Regrinder Operator: Assist with community resources: Ordered Assist with usp care planning: Ordered Encounter Date and Reason: I certify that a FTF encounter for this patient was performed on February 12, 2025 and that such encounter was related to the primary reason the patient requires home health services. The encounter was conducted in the following manner: By me as the certifying physician, INDUSTRIAL STAFF NURSE, PA or By an inpatient physician, INDUSTRIAL STAFF NURSE or PA during an inpatient stay who communicated findings to me, Certification And Authentication I certify that I composed the above information based on my clinical judgment relating to this patient's medical condition and, if applicable, clinical findings communicated to me by the NPP or inpatient physician who performed the FTF encounter. Name of Provider that will be monitoring home health services: Jaqui Baez
[2025-02-12] MEDS: Aspirin 81 MG CHEW PO (09:57)
--- NOTE | 2025-02-12 10:03 | PT.INIE ---
PT Notes Visit Reasons: Pneumonia Physical Therapy Inpatient Initial Evaluation Date: 02/12/2025 Referring Doctor: Dr Michael PT Orders: PT CONSULT:PT Evaluation Precautions: IV access , CANTWELL ( B hearing aides- Hears best in right ear), visual impairment Bilateral Patient Profile/Admitting Diagnosis: Pt is an 84 yo male presented to the ED on 02/10/35 with visual hallucinations and cough x 6 days. CxR revealed BLL infiltrates. Pt treated with antibiotics and admitted to Med Surg unit for further medical management and monitoring. Hallucinations resolved. PMHX: Bilateral pneumonia (Acute) Patrick Bonnet syndrome (Chronic) CAD (coronary artery disease) (Chronic) Age-related nuclear cataract, left eye (Acute) STANISLAV (generalized anxiety disorder) (Chronic) R/T health; sertraline started 2024Non-ST elevation [place] (NSTEMI) (Acute ~07/2024) Bladder pain (Acute) acute, w/ 4am urination (none afterwards).. resolves with urination. Mild hesitency. Hx BPH? 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 Unclear if associated with bladder pain/bladder stretch, trial FLOMAX + UROL referral. 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 Elliott manages 11/2022: Stopped driving Medical History Anxiety about health Posterior subcapsular polar age-related cataract, left eye Cortical age-related cataract, left eye Aneurysm of infrarenal abdominal aorta (~07/2024[place] [facility] [place] s/p repairLesion of skin of nose Visual hallucinations patrick bonnetFirst degree AV block Mobitz type I Wenckebach atrioventricular block BB induced--no further BBAcute serous otitis media, right ear History of excessive cerumen Actinic keratosis (~07/2022) Yearly skin checks with DermSubmandibular sialoadenitis Sensorineural hearing loss, bilateral History of SCC (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/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 Conductive hearing loss in right ear Chronic serous otitis media, right ear Eustachian tube dysfunction right 05/28/21 [facility], external ear Recurrent acute serous otitis media of right ear 03/10/21 Dr Kent 05/28/21 ResolvedBilateral knee pain Sciatica (10/27/12) LEFT: RECURRENT Other pulmonary embolism with acute cor pulmonale (12/21/11) 03/2009 Impairment of auditory discrimination of both ears (08/21/15) Asymmetrical sensorineural hearing loss of both ears (08/21/15) Erectile dysfunction (12/21/11) Chronic prostatitis (12/21/11) Surgical History cataract surgery OD (04/25/17) Coronary Artery Bypass Gaft (CABG) (08/15/15) Social History/Home Situation: Pt resides alone in his own home with his dog. He reports he has 4 steps with rail to enter. and stairs iside. Pt is independent ambulation, ADL meal prep and able to care for his dog, Arina. Pt's son visits on and assists with shopping, laundry, bills and transportation. Equipment Owned/DME: none Subjective: Pt states he can not lay flat d/t dizziness . He reports he does stretches for his back daily in the morning and uses a TENS unit 15mins a day to help manage his LBP. Pt reports he recently purchased a treadmill to improve his endurance however he has not been able to use it too much d/t this illness. Pt reports he is not able to read well d/t visual deficits. and he currently is having more trouble hearing d/t his ears being blocked despite hearing aides. Objective: [] General Observation: male semireclined in bed with B hearing aides in place. Mental Status: Pt A+Ox4, cooperative, able to follow instructions when spoken directly into his right ear. Pt agreeable to participate in evaluation. Pain: Low back 1-2/10 more stiffness then pain ROM: [] Right Upper Extremity: WFL Left Upper Extremity: WFL Right Lower Extremity:WFL Left Lower Extremity: WFL Strength: [] Right Upper Extremity: grossly 4/5 Left Upper Extremity: grossly 4/5 Right Lower Extremity:Hip flexion: 4 /5; hip abduction: 3+/5; hip extension: 3+ /5; knee extension: 4/5; knee flexion: 4- /5 ankle DF: 4 /5 ; ankle PF: 4/5 Left Lower Extremity: Hip flexion: 4/5; hip abduction: 3+ /5; hip extension: 3+ /5; knee extension: 4/5; knee flexion: 4- /5 ankle DF: 4 /5 ; ankle PF: 4/5 Sensation: intact Bed Mobility/Transfers: Supine to sit independent Sit to stand independent Stand to sit independent Bed to chair independent Gait: SBA ambulation 200 feet without AD with intermittent touching of objects, wall . Pt with forward flexed posture with reduced arm swing, intermittent stagger step toward right able to regain without physical assist. Pt noted with expiratory wheezes during ambulation with intermittent cough. stairs: Supervision 5 steps with rail reciprocal pattern x 2 trials. Balance: [] Static Sitting: Normal Dynamic Sitting: Normal Static Standing: Normal Dynamic Standing: Good VEGA/56 low risk for falls; limitations noted in single limb tasks. Special Tests: [] Mobility Limitations Standardized Measure [] [facility] AM-PAC 6 clicks Basic Mobility Inpatient Short Form: [] Raw Score: 24 CMS Score: 0 Informed Consent/Education: Patient instructed in purpose of PT consult. Treatment: 21256 Instruction in flexion biased stretches including single [id number], trunk rotation, pelvic tilt, IT band stretch in supine, figure 4 Patient performs these exercises at home however required cueing for proper technique. To include static hold x 30 seconds versus performing 10 reps quickly. Assessment: Patient is 84-year-old male presented to the ED with visual hallucinations and cough. Patient diagnosed with bilateral lower lobe pneumonia treated with antibiotics. Patient demonstrates generalized weakness with dyspnea on exertion and limited functional activity tolerance. Patient requires increased time to complete ADL/mobility tasks due to this. He demonstrates deficits in single limb tasks requiring upper extremity support including stairs as indicated by Vega score of 51 out of 56. Patient would benefit from home health PT to progress with functional maintenance program to maintain strength and ability to stay within his home. Patient performs daily low back stretches and recently purchased a treadmill to help improve his endurance. Home health to assist with progression of walking to increase balance and strength. Patient is assessed as a moderate complexity based on the following: History: 84-year-old male with impairment level findings, functional limitations, and past medical history as indicated above Examination: Demonstrable impairment in strength, balance, and mobility level with underlying impairments and functional limitations as documented above Presentation: Evolving/stable Decision Making: Moderate Goals: N/A. Patient to be discharged to home Plan of Care/Treatment Plan: N/A. Patient to be discharged to home DISCHARGE RECOMMENDATIONS: Home with services. Patient will benefit from home health PT services in order to progress mobility level , assess home safety, identify additional equipment needs, and establish a functional maintenance program including use of treadmill that will increase ability of patient to remain at home. TREATMENT CODE/TIME: 96724, 75844/09:25?10:05 AM Thank you for the opportunity to participate in the care of this patient. Vanita Capone PT [facility]
[2025-02-12 10:51] VITALS: BP 133/70; PULSE 81; RESP 20; TEMP 37.8; O2SAT 92
--- NOTE | 2025-02-12 13:50 | PDOC.CMDIS ---
Date of service: 02/12/25 Time of Service: 12:00 LACE Index Scoring Tool Questions: Length of Stay (in days): 2 Was the patient admitted via the E.D.?: Yes Comorbidities: Previous M.I. E.D. Visits: 2 Answers: Total Score: 8 Risk of Readmission: Low Risk Care Management Discharge Plan Reason for Hospitalization: bilateral pneumonia Discharge Plan: Angel was discharged home earlier today with new services of RN, PT and SUPERVISOR ACCOUNTING CLERKS. He will f/u with his PCP on 03/06 and continue per his plan of care. Angel's son, Rashard, is planning to stay with him for a few days. Rashard had some questions about resources going forward. He was encouraged to f/u with the Power Electronics Engineer at his PCP office ([facility]). Rashard transported Angel home in a private vehicle. Patient/Family Education Needs: Review of discharge instructions, activity, limitations, and discuss Ask me 3. Services Needed at Discharge: Home Health Care Services (HC RN, PT, SUPERVISOR ACCOUNTING CLERKS) SDOH Health Related Social Needs: Health related social needs problems related to housing/economic circumstances (Z59.89)
== END 2025-02-12 12:42 | disposition home health service (06) | DRG 195 ==
LOC: ER 20:48 → MS 21:23
PROVIDERS: Admitting Provider Family Medicine; Emergency Provider Emergency Medicine; PCP Nurse Practitioner Adult Health; Responsible Provider Family Medicine; Visit Provider Family Medicine
DX: J18.9 Pneumonia, unspecified organism (principal); H53.16 Psychophysical visual disturbances; H25.12 Age-related nuclear cataract, left eye; I25.2 Old myocardial infarction; I25.10 Atherosclerotic heart disease of native coronary artery without angina pectoris; Z95.1 Presence of aortocoronary bypass graft; Z97.4 Presence of external hearing-aid; Z95.828 Presence of other vascular implants and grafts; R73.01 Impaired fasting glucose; H90.3 Sensorineural hearing loss, bilateral; G89.29 Other chronic pain; K21.00 Gastro-esophageal reflux disease with esophagitis, without bleeding; I10 Essential (primary) hypertension; N40.0 Benign prostatic hyperplasia without lower urinary tract symptoms; R30.0 Dysuria; H54.62 Unqualified visual loss, left eye, normal vision right eye; I44.1 Atrioventricular block, second degree; Z86.711 Personal history of pulmonary embolism; M54.42 Lumbago with sciatica, left side; R05.1 Acute cough
CPT/HCPCS: 00123; 36415; 80048; 80053; 87637; 93005; 96365; 96367; 97162; 97530; 99285; J1650; 70450; 71046; 80320; 81003; 81015; 83735; 84484; 85025; 85610; 93010; 99223; 99233; 99239; J0456; J0696; J3490; J7613

== ENCOUNTER → 2025-06-20 13:11 | Outpatient (BNVA) | payer MEDICARE, SELFPAY | PROVIDERS: PCP Nurse Practitioner Adult Health; Referring Provider Nurse Practitioner Adult Health; Visit Provider Internal Medicine Cardiovascular Disease | DX: I25.810 Atherosclerosis of coronary artery bypass graft(s) without angina pectoris (principal); J44.9 Chronic obstructive pulmonary disease, unspecified | CPT/HCPCS: 99213 ==